=== PATIENT | male | born 1965 | race Caucasian/White ===

== ENCOUNTER 2018-05-30 19:24 | Emergency (ER) | payer OTHER ==
[2018-05-30] MEDS ORDERED: MORPHINE SULFATE 4 MG/ML SYRINGE IVP STA (20:09)
--- NOTE | 2018-05-30 20:09 | ED ---
Headache HPI - General Chief Complaint: Neuro Symptoms/Deficit Stated Complaint: Pressure on rt side of head Time Seen by Provider: 05/30/18 19:48 Source: RN notes reviewed, old records reviewed Mode of arrival: ambulatory Limitations: no limitations - History of Present Illness Initial Comments: This is a 53-year-old male the ER for evasive headache. Patient does have history of intracranial surgery. Patient states he felt like he had severe headache tonight just prior to arrival. Right eye right-sided headache. Patient does have history of occasional headaches. This headache is improving currently. Patient does have history of MRI of his brain secondary of prior history of urinary as well as surgery. He has no history of aneurysm. Patient denies any nausea vomiting, no trauma. No fevers MD Complaint: headache -: minutes(s) (30) Onset Description: sudden Location: right, retro-orbital Severity: moderate Severity scale (1-10): 6 Quality: aching Consistency: constant Improves With: nothing Worsens With: none Context: occurred at rest Associated Symptoms: other (None) Treatments Prior to Arrival: none - Related Data Home Medications Medication Instructions Recorded Confirmed Lisinopril [Prinivil] 10 mg PO DAILY 07/08/15 05/30/18 diphenhydrAMINE HCL [Benadryl] 25 mg PO Q6H PRN 05/30/18 05/30/18 Allergies Allergy/AdvReac Type Severity Reaction Status Date / Time No Known Allergies Allergy Verified 05/30/18 20:03 Review of Systems ROS Statement: Those systems with pertinent positive or pertinent negative responses have been documented in the HPI. ROS Other: All systems not noted in ROS Statement are negative. Past Medical History Past Medical History: GERD/Reflux, Hypertension Additional Past Medical History / Comment(s): acute pancreatitis History of Any Multi-Drug Resistant Organisms: None Reported Additional Past Surgical History / Comment(s): chiari decompression surgery Past Anesthesia/Blood Transfusion Reactions: No Reported Reaction Past Psychological History: No Psychological Hx Reported Smoking Status: Never smoker Past Alcohol Use History: None Reported Past Drug Use History: None Reported - Past Family History Mother Family Medical History: Cancer Additional Family Medical History / Comment(s): thyroid cancer Father Family Medical History: AFIB General Exam Limitations: no limitations General appearance: alert, in no apparent distress Head exam: Present: atraumatic, normocephalic, normal inspection Eye exam: Present: normal appearance, PERRL, EOMI. Absent: scleral icterus, conjunctival injection, periorbital swelling ENT exam: Present: normal exam, mucous membranes moist Neck exam: Present: normal inspection. Absent: tenderness, meningismus, lymphadenopathy Respiratory exam: Present: normal lung sounds bilaterally. Absent: respiratory distress, wheezes, rales, rhonchi, stridor Cardiovascular Exam: Present: regular rate, normal rhythm, normal heart sounds. Absent: systolic murmur, diastolic murmur, rubs, gallop, clicks GI/Abdominal exam: Present: soft, normal bowel sounds. Absent: distended, tenderness, guarding, rebound, rigid Extremities exam: Present: normal inspection, full ROM, normal capillary refill. Absent: tenderness, pedal edema, joint swelling, calf tenderness Back exam: Present: normal inspection Neurological exam: Present: alert, oriented X3, CN II-XII intact Psychiatric exam: Present: normal affect, normal mood Skin exam: Present: warm, dry, intact, normal color. Absent: rash Course Vital Signs 05/30/18 19:33 Temperature 98.0 F Pulse Rate 70 Respiratory 17 Rate Blood Pressure 141/84 O2 Sat by Pulse 98 Oximetry - Reevaluation(s) Reevaluation #1: 05/30/18 22:11 Patient's headache is improved, resolved Medical Decision Making - Medical Decision Making 53 male the ER for evaluation of sudden onset headache. Patient CT is negative. Patient can be discharged home - Radiology Data Radiology results: report reviewed (CT brain is negative for acute disease), image reviewed Disposition Clinical Impression: Chest pain Disposition: HOME SELF-CARE Condition: Good Instructions: Acute Headache (ED) Is patient prescribed a controlled substance at d/c from ED?: No Referrals: Gino Rojas MD [Primary Care Provider] - 1-2 days
--- NOTE | 2018-05-30 21:59 | CT ---
EXAMINATION TYPE: CT brain wo con DATE OF EXAM: 05/30/2018 COMPARISON: MRI brain 09/02/2013 INDICATION: head pressure DLP: 1097.4 mGycm, Automated exposure control for dose reduction was used. CONTRAST: None CT of the brain is performed utilizing 3 mm thick sections through the posterior fossa and 3 mm thick sections through the remaining calvarium. Study is performed within 24 hours of arrival to the hosp [facility]. No abnormal hyperdensity is present to suggest an acute intracranial hemorrhage. No mass lesion is evident. No acute infarcts are evident. Ventricles and sulci are appropriate for the patient age. Paranasal sinuses and mastoid air cells within the [id number] are clear. There is prior occipital surgery. Basilar invagination appears to be present. IMPRESSIONS: 1. No acute intracranial process.
--- NOTE | 2018-05-30 22:21 | ED ---
Disposition Clinical Impression: Headache Disposition: HOME SELF-CARE Condition: Good Instructions: Acute Headache (ED) Is patient prescribed a controlled substance at d/c from ED?: No Referrals: Gino Rojas MD [Primary Care Provider] - 1-2 days
[2018-05-30 22:28] VITALS: BP 114/87; PULSE 87; RESP 18; TEMP 98.4
== END 2018-05-30 22:27 | disposition home or self-care (01) ==
LOC: EC 19:24
DX: R51 Headache (principal); I10 Essential (primary) hypertension; Z79.899 Other long term (current) drug therapy; Z87.728 Personal history of other specified (corrected) congenital malformations of nervous system and sense organs; Z53.20 Procedure and treatment not carried out because of patient's decision for unspecified reasons
CPT/HCPCS: 70450; 99284

== ENCOUNTER 2018-11-16 09:13 | Emergency (ER) | payer OTHER ==
[2018-11-16 09:24] VITALS: BP 136/85; PULSE 77; RESP 18; TEMP 98.4
--- NOTE | 2018-11-16 09:29 | ED ---
General Adult HPI - General Chief complaint: Skin/Abscess/Foreign Body Stated complaint: poss poison lorelie Time Seen by Provider: 11/16/18 09:28 Source: patient, RN notes reviewed Mode of arrival: ambulatory Limitations: no limitations - History of Present Illness Initial comments: 53-year-old male with a past medical history of GERD, hypertension, pancreatitis presents to the emergency department for poison lorelei. Patient states that late last week he was [place] when he believes he came in contact with poison lorelei. States there is a area on his left bicep as well as the lower face. Patient states he came in today because the area on his face was weeping. States he has been applying calamine lotion which has been helping with the itching. Denies any fevers. Denies any purulent drainage from the site. Patient has no other complaints at this time including shortness of breath, chest pain, abdominal pain, nausea or vomiting, headache, or visual changes. - Related Data Home Medications Medication Instructions Recorded Confirmed Lisinopril [Prinivil] 10 mg PO DAILY 07/08/15 05/30/18 diphenhydrAMINE HCL [Benadryl] 25 mg PO Q6H PRN 05/30/18 05/30/18 Previous Rx's Medication Instructions Recorded Hydrocortisone 1% Lotion 1 applic TOPICAL BID 5 Days ml 11/16/18 Mupirocin [Mupirocin 2%] 1 applic TOPICAL TID 5 Days gm 11/16/18 Allergies Allergy/AdvReac Type Severity Reaction Status Date / Time No Known Allergies Allergy Verified 11/16/18 09:24 Review of Systems ROS Statement: Those systems with pertinent positive or pertinent negative responses have been documented in the HPI. ROS Other: All systems not noted in ROS Statement are negative. Past Medical History Past Medical History: GERD/Reflux, Hypertension Additional Past Medical History / Comment(s): acute pancreatitis History of Any Multi-Drug Resistant Organisms: None Reported Additional Past Surgical History / Comment(s): chiari decompression surgery Past Anesthesia/Blood Transfusion Reactions: No Reported Reaction Past Psychological History: No Psychological Hx Reported Smoking Status: Never smoker Past Alcohol Use History: None Reported Past Drug Use History: None Reported - Past Family History Mother Family Medical History: Cancer Additional Family Medical History / Comment(s): thyroid cancer Father Family Medical History: AFIB General Exam Limitations: no limitations General appearance: alert, in no apparent distress Head exam: Present: atraumatic, normocephalic, normal inspection Eye exam: Present: normal appearance, PERRL, EOMI. Absent: scleral icterus, conjunctival injection, periorbital swelling ENT exam: Present: normal exam, mucous membranes moist Neck exam: Present: normal inspection, full ROM. Absent: tenderness, meningismus, lymphadenopathy Respiratory exam: Present: normal lung sounds bilaterally. Absent: respiratory distress, wheezes, rales, rhonchi, stridor Cardiovascular Exam: Present: regular rate, normal rhythm, normal heart sounds. Absent: bradycardia, tachycardia, irregular rhythm Skin exam: Present: rash (Patient has a 2 cm x 2 cm area of erythema on the left lower chin with scaling and small ruptured vesicles. also 2 cm x 2 cm area noted on the left mid upper arm. No surrounding erythema. No abscess.) Course Vital Signs 11/16/18 09:22 Temperature 98.4 F Pulse Rate 77 Respiratory 18 Rate Blood Pressure 136/85 O2 Sat by Pulse 99 Oximetry Medical Decision Making - Medical Decision Making 53-year-old male presents to the emergency department for a chief complaint of possible poison lorelei. Patient was cleaning out the ditch late last week and then 2 days ago started to notice itching and rash noted to the left chin and left upper arm. States he has been applying calamine lotion which has been helping with symptoms. On exam patient does have rash consistent with poison lorelei. Rash is not severe. At this time patient can be treated with topical steroids. He will also be given mupirocin to prevent any superficial infection. This was followed up with primary care in 1-2 days. Discussed returning here if he has any worsening symptoms. Disposition Clinical Impression: Rash, Poison lorelei Disposition: HOME SELF-CARE Condition: Good Instructions (If sedation given, give patient instructions): Poison Lorelei (ED), Acute Rash (ED) Additional Instructions: Please apply antibiotic ointment and steroid. Please follow-up with primary care in 1-2 days. Return here if you've any worsening symptoms. Prescriptions: Hydrocortisone 1% Lotion 1 applic TOPICAL BID 5 Days ml Mupirocin [Mupirocin 2%] 1 applic TOPICAL TID 5 Days gm Is patient prescribed a controlled substance at d/c from ED?: No Referrals: Gino Rojas MD [Primary Care Provider] - 1-2 days Time of Disposition: 10:00
== END 2018-11-16 10:21 | disposition home or self-care (01) ==
LOC: EC 09:13
DX: L23.7 Allergic contact dermatitis due to plants, except food (principal); I10 Essential (primary) hypertension; Z79.899 Other long term (current) drug therapy
CPT/HCPCS: 99282

== ENCOUNTER 2021-10-17 07:50 | Emergency (ER) | payer OTHER ==
[2021-10-17 07:57] VITALS: TEMP 98.4
[2021-10-17 09:13] LABS: Basophils % (A) 0 %; Eosinophils # (A) 0.2 k/uL (0-0.7); Eosinophils % (A) 2 %; HCT 40.5 % (39.0-53.0); Lymphocytes # (A) 0.7 k/uL (1.0-4.8); Lymphocytes % (A) 9 %; MCH 27.5 pg (25.0-35.0); MCHC 32.2 g/dL (31.0-37.0); MCV 85.3 fL (80.0-100.0); Mean Platelet Volume 7.2; Monocytes # (A) 0.7 k/uL (0-1.0); Monocytes % (A) 8 %; Neutrophils # (A) 6.7 k/uL (1.3-7.7); Neutrophils % (A) 78 %; Platelet Count 494 k/uL (150-450); RBC 4.75 m/uL (4.30-5.90); RDW 12.9 % (11.5-15.5); WBC 8.5 k/uL (3.8-10.6)
[2021-10-17 09:33] LABS: ALT 22 U/L (4-49); AST 20 U/L (17-59); African American GFR (CKD) >90 (>60 ml/min/1.73 sqM); Albumin 4.1 g/dL (3.5-5.0); Alkaline Phosphatase 59 U/L (38-126); Anion Gap 12 mmol/L; Blood Urea Nitrogen 14 mg/dL (9-20); Calcium 9.1 mg/dL (8.4-10.2); Carbon Dioxide 26 mmol/L (22-30); Chloride 99 mmol/L (98-107); Creatine Kinase 37 U/L (55-170); Glucose 116 mg/dL (74-99); Non-African American GFR(CKD) >90 (>60 ml/min/1.73 sqM); Potassium 4.4 mmol/L (3.5-5.1); Sodium 137 mmol/L (137-145); Total Bilirubin 0.4 mg/dL (0.2-1.3); Total Protein 7.2 g/dL (6.3-8.2)
--- NOTE | 2021-10-17 10:16 | ED ---
Extremity Problem HPI - General Chief complaint: Extremity Problem,Nontraumatic Stated complaint: leg pain Time Seen by Provider: 10/17/21 08:08 Source: patient, RN notes reviewed, old records reviewed Mode of arrival: ambulatory Limitations: no limitations - History of Present Illness Initial comments: A 56-year-old male, history of GERD and hypertension, presenting to emergency Department with complaints of bilateral lower leg pain for the past 5 days. He denies any injuries or trauma. He states the pain has just been steadily increasing over the past few days and decided come in to be seen. He denies any history of blood clots, no recent travel. He denies any changes in medications. He denies any fevers or chills, no swelling, no redness or legs. He denies any history of surgeries of bilateral lower extremities. He states he drinks plenty of water, no increase in physical activity. He denies any recent chest pain or shortness of breath, no cough. He has no other symptoms or complaints today. His vital signs are stable upon arrival. - Related Data Home Medications Medication Instructions Recorded Confirmed Lisinopril [Prinivil] 10 mg PO DAILY 07/08/15 05/30/18 diphenhydrAMINE HCL [Benadryl] 25 mg PO Q6H PRN 05/30/18 05/30/18 Previous Rx's Medication Instructions Recorded Hydrocortisone 1% Lotion 1 applic TOPICAL BID 5 Days ml 11/16/18 Mupirocin [Mupirocin 2% with 1 applic TOPICAL TID 5 Days gm 11/16/18 applicator] Allergies Allergy/AdvReac Type Severity Reaction Status Date / Time No Known Allergies Allergy Verified 10/17/21 07:57 Review of Systems ROS Statement: Those systems with pertinent positive or pertinent negative responses have been documented in the HPI. ROS Other: All systems not noted in ROS Statement are negative. Past Medical History Past Medical History: GERD/Reflux, Hypertension Additional Past Medical History / Comment(s): acute pancreatitis History of Any Multi-Drug Resistant Organisms: None Reported Additional Past Surgical History / Comment(s): chiari decompression surgery Past Anesthesia/Blood Transfusion Reactions: No Reported Reaction Past Psychological History: No Psychological Hx Reported Smoking Status: Never smoker Past Alcohol Use History: None Reported Past Drug Use History: None Reported - Past Family History Mother Family Medical History: Cancer Additional Family Medical History / Comment(s): thyroid cancer Father Family Medical History: AFIB General Exam - General Exam Comments Initial Comments: GENERAL: Patient is well-developed and well-nourished. Patient is nontoxic and in no acute distress. HEAD: Atraumatic, normocephalic. EYES: Pupils equal round and reactive to light, extraocular movements intact, sclera anicteric, conjunctiva are normal. Eyelids were unremarkable. ENT: Oropharynx clear without exudates. Moist mucous membranes. NECK: Normal range of motion, supple without lymphadenopathy or JVD. LUNGS: Unlabored respirations. Breath sounds clear to auscultation bilaterally and equal. No wheezes rales or rhonchi. HEART: Regular rate and rhythm without murmurs, rubs or gallops. ABDOMEN: Soft, nontender, normoactive bowel sounds. No guarding, no rebound. No masses appreciated. MUSCULOSKELETAL: Patient has a normal range of motion, strength equal bilateral lower extremities. There is no swelling of bilateral lower extremities, no erythema. Neurovascular intact, sensation is equal and bilateral. He has some mild pain with palpation of bilateral lower legs. No clubbing or cyanosis. NEUROLOGICAL: Patient is alert and oriented x 3. Normal speech, normal gait. PSYCH: Normal mood, normal affect. SKIN: Warm, Dry, normal turgor, no rashes or lesions noted. Limitations: no limitations Course Vital Signs 10/17/21 07:55 Temperature 98.4 F Pulse Rate 96 Respiratory 20 Rate Blood Pressure 133/85 O2 Sat by Pulse 97 Oximetry Medical Decision Making - Medical Decision Making Patient is 56-year-old male here with bilateral lower leg pain over the past 5 days. His exam is completely unremarkable, no swelling, no redness, pulses are equal and bilateral as well as sensation. Did check basic laboratory studies including a CK, everything is normal. I discussed these findings with the patient. I recommended follow-up with his PCP and vascular for further investigation. Patient is agreeable to this. He can take anti-inflammatories for discomfort, elevation. Return parameters were discussed, he verbalized understanding. Case discussed with Dr. Liu. - Lab Data Result diagrams: 10/17/21 08:42 10/17/21 08:42 Lab Results 10/17/21 10/17/21 10/17/21 Range/Units 08:42 08:42 08:42 WBC 8.5 (3.8-10.6) k/uL RBC 4.75 (4.30-5.90) m/uL Hgb 13.0 (13.0-17.5) gm/dL Hct 40.5 (39.0-53.0) % MCV 85.3 (80.0-100.0) fL MCH 27.5 (25.0-35.0) pg MCHC 32.2 (31.0-37.0) g/dL RDW 12.9 (11.5-15.5) % Plt Count 494 H (150-450) k/uL MPV 7.2 Neutrophils % 78 % Lymphocytes % 9 % Monocytes % 8 % Eosinophils % 2 % Basophils % 0 % Neutrophils # 6.7 (1.3-7.7) k/uL Lymphocytes # 0.7 L (1.0-4.8) k/uL Monocytes # 0.7 (0-1.0) k/uL Eosinophils # 0.2 (0-0.7) k/uL Basophils # 0.0 (0-0.2) k/uL Sodium 137 (137-145) mmol/L Potassium 4.4 (3.5-5.1) mmol/L Chloride 99 (98-107) mmol/L Carbon Dioxide 26 (22-30) mmol/L Anion Gap 12 mmol/L BUN 14 (9-20) mg/dL Creatinine 0.79 (0.66-1.25) mg/dL Est GFR (CKD-EPI)AfAm >90 (>60 ml/min/1.73 sqM) Est GFR (CKD-EPI)NonAf >90 (>60 ml/min/1.73 sqM) Glucose 116 H (74-99) mg/dL Plasma Lactic Acid Eric 0.8 (0.7-2.0) mmol/L Calcium 9.1 (8.4-10.2) mg/dL Total Bilirubin 0.4 (0.2-1.3) mg/dL AST 20 (17-59) U/L ALT 22 (4-49) U/L Alkaline Phosphatase 59 (38-126) U/L Creatine Kinase 37 L (55-170) U/L Total Protein 7.2 (6.3-8.2) g/dL Albumin 4.1 (3.5-5.0) g/dL Disposition Clinical Impression: Bilateral lower extremity pain Disposition: HOME SELF-CARE Condition: Stable Instructions (If sedation given, give patient instructions): Leg Pain (ED) Additional Instructions: Please return to the Emergency Department if symptoms worsen or any other concerns. May take anti-inflammatories such as Motrin or Aleve for any discomfort. Trial of elevation above heart level throughout the day. Follow-up with your PCP and/or vascular as discussed. Is patient prescribed a controlled substance at d/c from ED?: No Referrals: Gino Rojas MD [Primary Care Provider] - 1-2 days Gonzalo Verma DO [Doctor of Osteopathic Medicine] - 1-2 days Time of Disposition: 10:16
[2021-10-17 10:43] VITALS: BP 126/87; PULSE 87; RESP 16
== END 2021-10-17 10:43 | disposition home or self-care (01) ==
LOC: EC 07:50
DX: M79.662 Pain in left lower leg (principal); M79.661 Pain in right lower leg; I10 Essential (primary) hypertension; K21.9 Gastro-esophageal reflux disease without esophagitis; Z79.899 Other long term (current) drug therapy
CPT/HCPCS: 36415; 80053; 82550; 83605; 85025; 99283

== ENCOUNTER → 2021-10-23 | Outpatient (CLI) | payer OTHER ==
--- NOTE | 2021-10-23 18:40 | US ---
EXAMINATION TYPE: US venous doppler duplex LE BI DATE OF EXAM: 10/23/2021 1:28 PM COMPARISON: NONE CLINICAL HISTORY: 56-year-old male I70.213 Atherosclerosis of [place] arteries of the lower extremiti es. Pain. SIDE PERFORMED: Bilateral TECHNIQUE: The lower extremity deep venous system is examined utilizing real time linear array sonog bright with graded compression, doppler sonography and color-flow sonography. FINDINGS: VESSELS IMAGED: Common Femoral Vein Deep Femoral Vein Greater Saphenous Vein * Femoral Vein Popliteal Vein Small Saphenous Vein * Proximal Calf Veins (* superficial vessels) Right Leg: Negative for DVT Left Leg: Negative for DVT IMPRESSION: No evidence for DVT within the bilateral lower lower extremities imaged from the groin to the upper c wells.
== END | disposition home or self-care (01) ==
LOC: RADUSWWP 12:16
PROVIDERS: ATTEND Family Medicine
DX: I70.213 Atherosclerosis of native arteries of extremities with intermittent claudication, bilateral legs (principal); R60.0 Localized edema
CPT/HCPCS: 93922; 93970

== ENCOUNTER 2021-11-02 03:05 | Inpatient (IN) | payer OTHER ==
[2021-11-02] MEDS ORDERED: MORPHINE SULFATE 4 MG/ML SYRINGE IV STA ×2 (03:58→06:35)
[2021-11-02 04:34] LABS: Basophils % (A) 0 %; Eosinophils # (A) 0.6 k/uL (0-0.7); Eosinophils % (A) 4 %; HGB 12.5 gm/dL (13.0-17.5); Lymphocytes % (A) 8 %; MCH 26.6 pg (25.0-35.0); MCV 83.1 fL (80.0-100.0); Monocytes # (A) 0.8 k/uL (0-1.0); Monocytes % (A) 6 %; Neutrophils # (A) 9.8 k/uL (1.3-7.7); Neutrophils % (A) 79 %; Platelet Count 698 k/uL (150-450); RDW 13.5 % (11.5-15.5); WBC 12.4 k/uL (3.8-10.6)
[2021-11-02 04:46] LABS: ALT 47 U/L (4-49); AST 24 U/L (17-59); African American GFR (CKD) >90 (>60 ml/min/1.73 sqM); Albumin 3.5 g/dL (3.5-5.0); Alcohol <10 mg/dL; Alkaline Phosphatase 59 U/L (38-126); Anion Gap 9 mmol/L; Blood Urea Nitrogen 12 mg/dL (9-20); Calcium 8.7 mg/dL (8.4-10.2); Carbon Dioxide 24 mmol/L (22-30); Chloride 97 mmol/L (98-107); Glucose 118 mg/dL (74-99); Non-African American GFR(CKD) >90 (>60 ml/min/1.73 sqM); Potassium 4.6 mmol/L (3.5-5.1); Sodium 130 mmol/L (137-145); Total Bilirubin 0.8 mg/dL (0.2-1.3); Total Protein 6.3 g/dL (6.3-8.2)
[2021-11-02] MEDS ORDERED: KETOROLAC 15 MG/ML 1 ML VIAL IVP STA (05:00)
[2021-11-02] MEDS ORDERED: SODIUM CHLORIDE 0.9% 500 ML 500 ML IV STA (05:46)
--- NOTE | 2021-11-02 05:50 | CT ---
EXAM: CT Lumbar Spine Without Intravenous Contrast CLINICAL HISTORY: ITS.REASON CT Reason: B leg pain TECHNIQUE: Axial computed tomography images of the lumbar spine without intravenous contrast. CTDI is 22.284 mGy and DLP is 913.6 mGy-cm. This CT exam was performed using one or more of the following dose reduction techniques: automated exposure control, adjustment of the mA and/or kV according to patient size, and/or use of iterative reconstruction technique. COMPARISON: No relevant prior studies available. FINDINGS: Vertebrae: Unremarkable. No acute fracture. Discs/spinal canal/neural foramina: No acute findings. No spinal canal stenosis. Soft tissues: Colonic diverticulosis. Prostatomegaly with mild circumferential bladder wall thickening which may be due to chronic outlet obstruction. IMPRESSION: Normal lumbar spine CT.
[2021-11-02] MEDS ORDERED: ACETAMINOPHEN TAB 325 MG TAB PO PRN (06:47)
[2021-11-02] MEDS ORDERED: NALOXONE 0.4 MG/ML 1 ML VIAL IV PRN (06:47)
[2021-11-02] MEDS ORDERED: MORPHINE SULFATE 4 MG/ML SYRINGE IV PRN (06:47)
--- NOTE | 2021-11-02 06:51 | ED ---
Back Pain HPI - General Chief Complaint: Back Pain/Injury Stated Complaint: Back Pain Time Seen by Provider: 11/02/21 03:34 Source: patient Limitations: no limitations - History of Present Illness Initial Comments: This patient is a 56-year-old man who presents to have evaluation of pain and weakness to the bilateral lower extremities. The patient notes that his symptoms had started probably around 2 weeks ago. The patient relates that he had driven to [place] and then after returning from the drive he began having symptoms. He was seen by his physician who arranged to have duplex Doppler studies to make sure there was no DVT. Patient continues to have pain. He states it is symmetric. In triage there was no made of back pain but patient denies back pain when I asked him. No fever or chills. No change in urination or bowel movements. No saddle anesthesia. MD Complaint: other -: days(s) Similar Symptoms Previously: No Place: home Radiation: left leg, right leg Severity: severe Quality: burning, aching Consistency: constant Improves With: none Worsens With: none Associated Symptoms: weakness - Related Data Home Medications Medication Instructions Recorded Confirmed lisinopriL [Prinivil] 10 mg PO DAILY 07/08/15 05/30/18 diphenhydrAMINE HCL [Benadryl] 25 mg PO Q6H PRN 05/30/18 05/30/18 Previous Rx's Medication Instructions Recorded Hydrocortisone 1% Lotion 1 applic TOPICAL BID 5 Days ml 11/16/18 Mupirocin [Mupirocin 2% with 1 applic TOPICAL TID 5 Days gm 11/16/18 applicator] Allergies Allergy/AdvReac Type Severity Reaction Status Date / Time No Known Allergies Allergy Verified 11/02/21 03:09 Review of Systems ROS Statement: Those systems with pertinent positive or pertinent negative responses have been documented in the HPI. ROS Other: All systems not noted in ROS Statement are negative. Constitutional: Denies: fever, chills Respiratory: Denies: cough, dyspnea Cardiovascular: Denies: chest pain, palpitations Gastrointestinal: Denies: abdominal pain, vomiting, diarrhea, constipation Genitourinary: Denies: dysuria, hematuria, testicular pain Musculoskeletal: Denies: back pain Skin: Denies: rash Neurological: Reports: weakness, numbness. Denies: headache, paresthesias, confusion Past Medical History Past Medical History: GERD/Reflux, Hypertension Additional Past Medical History / Comment(s): acute pancreatitis History of Any Multi-Drug Resistant Organisms: None Reported Additional Past Surgical History / Comment(s): chiari decompression surgery Past Anesthesia/Blood Transfusion Reactions: No Reported Reaction Past Psychological History: No Psychological Hx Reported Smoking Status: Never smoker Past Alcohol Use History: None Reported Past Drug Use History: None Reported - Past Family History Mother Family Medical History: Cancer Additional Family Medical History / Comment(s): thyroid cancer Father Family Medical History: AFIB General Exam Limitations: no limitations General appearance: alert, in no apparent distress Head exam: Present: atraumatic, normocephalic Eye exam: Present: normal appearance Neck exam: Present: normal inspection, full ROM Respiratory exam: Present: normal lung sounds bilaterally. Absent: respiratory distress, wheezes, rales, rhonchi, stridor Cardiovascular Exam: Present: regular rate, normal rhythm, normal heart sounds. Absent: systolic murmur, diastolic murmur, rubs, gallop GI/Abdominal exam: Present: soft. Absent: distended, tenderness, guarding, rebound, rigid, mass Extremities exam: Present: normal inspection, full ROM, normal capillary refill. Absent: tenderness, pedal edema, calf tenderness Back exam: Present: normal inspection. Absent: CVA tenderness (R), CVA tenderness (L), paraspinal tenderness, vertebral tenderness Neurological exam: Present: alert, motor sensory deficit, reflexes normal Expanded Patient oriented to: Present: person, place, time Speech: Present: fluid speech Motor strength exam: RUE: 5, LUE: 5, RLE: 4, LLE: 4 Eye Response: (4) open spontaneously Motor Response: (6) obeys commands Verbal Response: (5) oriented Skin exam: Present: warm, dry, intact, normal color. Absent: rash Course Vital Signs 11/02/21 11/02/21 03:05 06:42 Temperature 99 F Pulse Rate 100 95 Respiratory 20 16 Rate Blood Pressure 125/78 138/85 O2 Sat by Pulse 98 97 Oximetry Medical Decision Making - Medical Decision Making This patient is 56-year-old man with proximal 2 weeks of bilateral leg pain. On my exam there is also weakness. Case is discussed with sound physician who will admit to have neurology consultation. - Lab Data Result diagrams: 11/02/21 04:20 11/02/21 04:20 Lab Results 11/02/21 11/02/21 Range/Units 04:20 04:20 WBC 12.4 H (3.8-10.6) k/uL RBC 4.70 (4.30-5.90) m/uL Hgb 12.5 L (13.0-17.5) gm/dL Hct 39.0 (39.0-53.0) % MCV 83.1 (80.0-100.0) fL MCH 26.6 (25.0-35.0) pg MCHC 32.0 (31.0-37.0) g/dL RDW 13.5 (11.5-15.5) % Plt Count 698 H (150-450) k/uL MPV 7.0 Neutrophils % 79 % Lymphocytes % 8 % Monocytes % 6 % Eosinophils % 4 % Basophils % 0 % Neutrophils # 9.8 H (1.3-7.7) k/uL Lymphocytes # 1.0 (1.0-4.8) k/uL Monocytes # 0.8 (0-1.0) k/uL Eosinophils # 0.6 (0-0.7) k/uL Basophils # 0.0 (0-0.2) k/uL Sodium 130 L (137-145) mmol/L Potassium 4.6 (3.5-5.1) mmol/L Chloride 97 L (98-107) mmol/L Carbon Dioxide 24 (22-30) mmol/L Anion Gap 9 mmol/L BUN 12 (9-20) mg/dL Creatinine 0.69 (0.66-1.25) mg/dL Est GFR (CKD-EPI)AfAm >90 (>60 ml/min/1.73 sqM) Est GFR (CKD-EPI)NonAf >90 (>60 ml/min/1.73 sqM) Glucose 118 H (74-99) mg/dL Calcium 8.7 (8.4-10.2) mg/dL Total Bilirubin 0.8 (0.2-1.3) mg/dL AST 24 (17-59) U/L ALT 47 (4-49) U/L Alkaline Phosphatase 59 (38-126) U/L C-Reactive Protein 13.0 H (<1.0) mg/dL Total Protein 6.3 (6.3-8.2) g/dL Albumin 3.5 (3.5-5.0) g/dL Serum Alcohol <10 mg/dL Disposition Clinical Impression: Bilateral lower extremity pain Disposition: ADMITTED IP TO THIS HOSP Condition: Fair Is patient prescribed a controlled substance at d/c from ED?: No Referrals: Gino Rojas MD [Primary Care Provider] - 1-2 days Time of Disposition: 06:35
[2021-11-02] MEDS: HEPARIN SODIUM,PORCINE/PF 5,000 UNIT/0.5 ML SYRINGE SQ SCH ×2 (07:56→16:02)
[2021-11-02] MEDS: SODIUM CHLORIDE 0.9% 1,000 ML IV SCH ×2 (07:58→20:25)
[2021-11-02] MEDS: lisinopriL 10 MG TAB PO SCH (09:53)
--- NOTE | 2021-11-02 10:45 | P.HPIM ---
History of Present Illness H&P Date: 11/02/21 History of Presenting Illness: Patient is a very pleasant 56-year-old male with a past medical history of hypertension, GERD, and Chiari decompression surgery. Patient presented to the emergency department with the chief complaint of bilateral leg pain and weakness. Patient reports this is pending progressively going on over the past month and has significantly worsened over the past 2 weeks. Patient reports he is now experiencing complete numbness of bilateral feet accompanied by pain and tingling traveling up his legs. Patient denies any previous episodes similar to this in the past. He denies having any recent fevers or recent infections. He denies having any falls or injuries. Patient also denies having any back pain, chest pain, palpitations, shortness of breath, or experiencing any other numbness/tingling/weakness throughout any other part of his body. Patient reports this numbness/pain/tingling extends up into his thighs. He denies having any involuntary loss of bowel or bladder. Patient underwent full evaluation in the emergency department, CT lumbar spine negative for acute process. Labs completed. CBC revealing leukocytosis with WBC count of 12.4 and thrombocytosis with platelet count of 698. BMP revealing mild hyponatremia with sodium of 1:30 and hypochloremia with chloride of 97. Inflammatory markers elevated with CRP 13 an ESR of 63. Patient admitted under our services with consultation to neurology. Review of systems: Pertinent positives and negatives as discussed in HPI, a complete review of systems was performed and all other systems are negative. Physical exam: Vital signs reviewed and stable. General: Nontoxic, no distress and appears stated age. Derm: Skin warm and dry, normal coloration for ethnicity. Head: Atraumatic, normocephalic and symmetric. Eyes: EOMs intact, no lid lag, and anicteric sclera Mouth: no lip lesions, mucus membranes moist Cardiovascular: regular rate and rhythm with normal S1S2, no murmur, positive posterior tibial pulses bilaterally, and cap refill < 2 seconds. Lungs: Respirations even, regular, and unlabored on room air. Lungs CTA bilaterally, no rhonchi, no rales, no wheezing, and no accessory muscle usage. Abdominal: soft, nontender to palpation, no guarding, no appreciable organomegaly Ext: ROM intact. No gross muscle atrophy, no edema, no contractures. Patient do es have moderate varicose veins in bilateral lower extremities but does have strong palpable posterior tibial and pedal pulses bilaterally. Patient reports numbness in bilateral feet, cap refill less than 2 seconds and temperature skin is warm. Neuro: Speech clear, face symmetrical and CN II-XII grossly intact with no noted focal neuro deficits Psych: Alert and oriented to person, place, time, and situation. Appropriate and pleasant affect. Assessment and Plan of Care: Bilateral lower extremity numbness and pain, rule out Belmond Aquino or other neurological disorder -Neurology consulted -Neuro checks every 4 hours -Fall precautions -Safe and supportive care and assistance as needed -Pain management -MRI brain and cervical spine -Inflammatory markers elevated with an ESR of 63 and CRP of 13. Hyponatremia Hypochloremia -Likely secondary to dehydration, patient receiving gentle IV fluid hydration. -We will continue to monitor with repeat a.m. labs. Thrombocytosis -Likely secondary to dehydration, patient receiving gentle IV fluid hydration. -We will continue to monitor with repeat a.m. labs. Leukocytosis -Possibly reactive as inflammatory markers are also elevated. -We will continue to monitor with repeat a.m. labs. Hypertension - monitor vital signs and continue daily medication regimen with lisinopril CODE STATUS: Full code DVT prophylaxis: heparin Discussed with: patient and RN Anticipated discharge date: clinical course to determine Anticipated discharge place: home A total of 45 minutes was spent on the care of this complex patient more than 50% of the time was spent in counseling and care coordination. Past Medical History Past Medical History: GERD/Reflux, Hypertension Additional Past Medical History / Comment(s): acute pancreatitis History of Any Multi-Drug Resistant Organisms: None Reported Additional Past Surgical History / Comment(s): chiari decompression surgery Past Anesthesia/Blood Transfusion Reactions: No Reported Reaction Past Psychological History: No Psychological Hx Reported Smoking Status: Never smoker Past Alcohol Use History: None Reported Past Drug Use History: None Reported - Past Family History Mother Family Medical History: Cancer Additional Family Medical History / Comment(s): thyroid cancer Father Family Medical History: AFIB Medications and Allergies Home Medications Medication Instructions Recorded Confirmed Type lisinopriL [Prinivil] 10 mg PO DAILY 07/08/15 11/02/21 History Cholecalciferol (Vitamin D3) 75 mcg PO HS 11/02/21 11/02/21 History [Vitamin D3 (3000 Iu)] Allergies Allergy/AdvReac Type Severity Reaction Status Date / Time No Known Allergies Allergy Verified 11/02/21 07:27 Physical Exam Vitals: Vital Signs Temp Pulse Resp BP Pulse Ox 11/02/21 08:07 98.8 F 93 18 139/88 96 11/02/21 06:42 95 16 138/85 97 11/02/21 03:05 99 F 100 20 125/78 98 Intake and Output 11/01/21 11/02/21 11/02/21 22:59 06:59 14:59 Other: Weight 68.039 kg Results CBC & Chem 7: 11/02/21 04:20 11/02/21 04:20 Labs: Abnormal Lab Results - Last 24 Hours (Table) 11/02/21 11/02/21 Range/Units 04:20 04:20 WBC 12.4 H (3.8-10.6) k/uL Hgb 12.5 L (13.0-17.5) gm/dL Plt Count 698 H (150-450) k/uL Neutrophils # 9.8 H (1.3-7.7) k/uL Sodium 130 L (137-145) mmol/L Chloride 97 L (98-107) mmol/L Glucose 118 H (74-99) mg/dL C-Reactive Protein 13.0 H (<1.0) mg/dL
[2021-11-02] MEDS: KETOROLAC 15 MG/ML 1 ML VIAL IVP PRN ×2 (11:59→18:27)
--- NOTE | 2021-11-02 13:55 | P.CNNES ---
History of Present Illness Consult date: 11/02/21 Requesting physician: Maurice Argueta Reason for Consult: Bilateral leg pain and weakness History of Present Illness: Patient is a 56-year-old male came to the hospital early this morning at 3:05 AM for new onset bilateral lower extremity paresthesias and weakness. Patient states that he was suffering from upper respiratory infection since August 2021. She was given a course of antibiotics on 08/25/2021. The sinus congestion continued to linger on. He was given a dose of Medrol Dosepak on 09/22/2021. Patient states that around 10/11/2021 he developed paresthesias in the bilateral lower extremities, was hurting to touch involving whole legs bilaterally. (He states that he remembers attending a wedding on 10/09/2021 when he had no symptoms in the legs). Denied any symptoms in the upper extremities. ER on 0 10/17/2021 and underwent blood testing including CK which was normal. Patient was recommended to follow-up with a primary physician. Patient saw his primary physician, who recommended arterial Doppler of bilateral lower extremities, which was performed on 10/23/2021, which revealed loss of phasicity right femoral artery may be technical. Normal LEELEE values. Patient states that hypersensitivity in the legs have improved, but now he has developed constant numbness of the feet and ankle region bilaterally. When the pain gets worse, it extends up to the thighs pointing posteriorly otherwise it stays in the lower legs. In the last 1-1/2 weeks, he has noticed difficulty moving his toes. Yesterday he had too much pain therefore decided to come to the ER. He notices stabbing pain in the feet. Patient denies any symptoms in the upper extremities or hands. Early this morning he was feeling some sprained feeling in the shoulder but is gone now. Patient denies any bowel or bladder control issue. Denies any numbness of the trunk, perineal region. He states the balance is fine. He states it's hard to walk because of pain but no balance issues. Vital signs on arrival blood pressure 125/78, pulse rate 100, temperature 99.0.. Blood test shows WBC 12.4 hemoglobin 12.5 and platelet 698. Sodium 1:30 potassium 4.6, renal functions normal, hepatic panel normal, blood alcohol level less than 10. CT of the lumbar spine is normal. Patient had a CT head performed previously on 05/30/2018 for "head pressure" was normal. Patient currently takes lisinopril and vitamin D3. Patient denies any blood pressure diabetes. Denies any tobacco or alcohol use. He is retired from [employer]. Patient states that in fabric 2021 he developed shingles involving the shoulder blade. It was not very intense. Review of Systems All 14 points a few systems reviewed, unremarkable except as mentioned in HPI. Past Medical History Past Medical History: GERD/Reflux, Hypertension Additional Past Medical History / Comment(s): acute pancreatitis History of Any Multi-Drug Resistant Organisms: None Reported Additional Past Surgical History / Comment(s): chiari decompression surgery Past Anesthesia/Blood Transfusion Reactions: No Reported Reaction Past Psychological History: No Psychological Hx Reported Smoking Status: Never smoker Past Alcohol Use History: None Reported Past Drug Use History: None Reported - Past Family History Mother Family Medical History: Cancer Additional Family Medical History / Comment(s): thyroid cancer Father Family Medical History: AFIB Medications and Allergies Home Medications Medication Instructions Recorded Confirmed Type lisinopriL [Prinivil] 10 mg PO DAILY 07/08/15 11/02/21 History Cholecalciferol (Vitamin D3) 75 mcg PO HS 11/02/21 11/02/21 History [Vitamin D3 (3000 Iu)] Allergies Allergy/AdvReac Type Severity Reaction Status Date / Time No Known Allergies Allergy Verified 11/02/21 07:27 Physical Examination - Vital Signs Vital Signs: Vital Signs Temp Pulse Pulse Resp BP BP Pulse Ox 11/02/21 09:10 98.2 F 98 18 128/83 98 11/02/21 08:07 98.8 F 93 18 139/88 96 11/02/21 06:42 95 16 138/85 97 11/02/21 03:05 99 F 100 20 125/78 98 Intake and Output 11/01/21 11/02/21 11/02/21 22:59 06:59 14:59 Other: Weight 68.039 kg 68.039 kg Patient is a middle aged male, in no acute distress. Patient is alert awake oriented to time place and person. Speech and language functions are normal. Attention, concentration and fund of knowledge is adequate. On cranial examination, pupils are round and reacting to light, visual perez are full on confrontation, with no neglect. His extraocular muscles are intact with no nystagmus. Face is symmetric, tongue protrudes to the midline. Palatal elevation and sensation normal, hearing and shoulder shrug normal, facial sensation normal. Shoulder shrug normal. On muscle strength testing, there is no pronator drift and the strength is normal in arms and legs distally and proximally, except toe extension which is 4 on the right, 3-on the left. Toe flexion is normal bilaterally. Deep tendon reflexes are (right/left) biceps 2+/2+, brachioradialis 2+/2+, knees 3/2+, ankles 2+/1+ and plantars are flat bilaterally. Sensory to light touch is decreased from toes up to 4 fingerbreadth above the ankles. Pinprick is decreased from toes up to ankles bilaterally. Vibration is absent in the toes, mildly decreased at the ankles. Joint position sense is severely decreased at the toe. Cerebellar function showed no ataxia for [id number] testing. No dysdiadochokinesia. Tone and bulk of muscles normal. Gait deferred. On general examination, there is no carotid bruit or murmur, S1-S2 audible. Abdomen is soft nontender. No organomegaly, bowel sounds present. Chest is clear. Peripheral pulses are present. No edema. Results - Laboratory Findings CBC and BMP: 11/03/21 05:50 11/02/21 04:20 Abnormal Lab Findings: Abnormal Labs 11/02/21 11/02/21 04:20 04:20 WBC 12.4 H Hgb 12.5 L Plt Count 698 H Neutrophils # 9.8 H Sodium 130 L Chloride 97 L Glucose 118 H C-Reactive Protein 13.0 H Assessment and Plan Assessment: * New onset, 4 week history of progressive numbness and weakness of distal bilateral lower extremities. Examination reveals preserved deep tendon reflexes. Patient had upper respiratory infection prior to onset of these symptoms. 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 Rule out myelopathy. * History of cervical decompression surgery for Chiari malformation in 2013. Denies any injury or neck pain at this time. * History of herpes zoster (affecting right shoulder region) around May 2021 Plan: * MRI of the cervical, thoracic and lumbar spines with and without contrast, rule out myelopathy. * Detailed blood tests has been ordered. * Lumbar puncture to evaluate for CSF protein. We will consult pain management. If the CSF proteins are high, and no obvious abnormalities identified with above testing, then we will consider treatment with IVIG. * Neurology will follow. Thank you for the consult.
--- NOTE | 2021-11-02 15:11 | MR ---
EXAMINATION TYPE: MR cspine/tspine wo/w con DATE OF EXAM: 11/02/2021 COMPARISON: MR brain 09/02/2013 HISTORY: Bilateral LE weakness, numbness ?TM spinal stenosis, Hx of Chiari decompression TECHNIQUE: Multiplanar, multisequence images of the cervical and thoracic spine is performed without and with IV contrast, utilizing 7 mL intravenous Gadavist FINDINGS: Cervical spine MRI with and without contrast: Cervical vertebral bodies show preserved height and ali gnment, bone marrow signal is maintained. Disc spaces are normal. There is no evident spinal stenosis or disc herniation. Posterior extension of endplate disc complex at C6-7 causes minimal anterior mas s effect on the thecal sac. No significant foraminal encroachment. Postop changes are noted at the oc cipital calvarium. Inferior descent of the cerebellar tonsils is present posterior to the upper cervi portia cord, cervical cord signal is maintained. There is a thoracic spinal curvature. Unusual orientati on of the midbrain shows a similar appearance, chronic finding. There is no abnormal enhancement following contrast administration. IMPRESSION: No acute finding is evident. There are postop changes, unusual appearance of the patient' s midbrain with inferior descent of the cerebellar tonsils again noted. No significant spinal stenosi s. Thoracic spine MRI with and without contrast: There is a spinal curvature present. No significant spinal stenosis or foraminal encroachment. Thorac ic vertebral bodies show preserved height. Thoracic cord signal is maintained. No abnormal enhancemen t following contrast administration. Disc spaces are maintained. There is no evident disc herniation. IMPRESSION: There is marked spinal curvature in the upper thoracic spine convex left.
[2021-11-02] MEDS: HYDROcodone/APAP 5-325MG 1 EACH TAB PO PRN (17:38)
[2021-11-02 18:27] LABS: Immunoglobulin M 44.2 mg/dL (40.0-280.0)
[2021-11-02 18:37] LABS: Protein, Total 5.8 g/dL (6.2-8.2)
[2021-11-02] MEDS: CHOLECALCIFEROL 25 MCG (1000 IU) TABLET PO SCH (20:24)
[2021-11-02] MEDS: HYDROmorphone 1 MG/ML 1 ML SYRINGE IVP PRN (21:36)
[2021-11-03] MEDS: KETOROLAC 15 MG/ML 1 ML VIAL IVP PRN ×3 (00:21→13:30)
[2021-11-03] MEDS: lisinopriL 10 MG TAB PO SCH (08:02)
[2021-11-03 09:00] LABS: HCT 37.2 % (39.6-50.0); HGB 11.6 g/dL (13.0-17.0); MCH 26.2 pg (27.0-32.0); MCHC 31.2 g/dL (32.0-37.0); MCV 84.2 fL (80.0-97.0); Mean Platelet Volume 9.1 fL (9.5-12.2); NRBC Per 100 WBC 0 /100 WBCS (0.0-0.0); Platelet Count 596 X 10*3/uL (140-440); RBC 4.42 X 10*6/uL (4.40-5.60); RDW 13.8 % (11.5-14.5); WBC 13.04 X 10*3/uL (4.50-10.00)
[2021-11-03 09:15] LABS: African American GFR (CKD) 124.5 (60.0-200.0); Albumin 3.4 g/dL (3.8-4.9); Albumin/Globulin Ratio 1.23 (1.60-3.17); Anion Gap 11.6 mmol/L (10.00-18.00); BUN/Creat Ratio 22.17 Ratio (12.00-20.00); Blood Urea Nitrogen 15.1 mg/dL (9.0-27.0); Calcium 8.6 mg/dL (8.7-10.3); Carbon Dioxide 24.1 mmol/L (20.0-27.5); Globulin 2.8 g/dL (1.6-3.3); Magnesium 2.1 mg/dL (1.5-2.4); Non-African American GFR(CKD) 107.5 (60.0-200.0); Potassium 4.7 mmol/L (3.5-5.5); Total Bilirubin 0.3 mg/dL (0.30-1.20); Total Protein 6.2 g/dL (6.2-8.2)
[2021-11-03 10:36] LABS: Lyme IgG/IgM 0.04 Index
[2021-11-03] MEDS ORDERED: IV FLUID CONTINUATION 1,000 ML IV ONE (10:44)
[2021-11-03] MEDS: SODIUM CHLORIDE 0.9% 1,000 ML IV SCH (10:52)
--- NOTE | 2021-11-03 11:36 | P.PCN ---
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 Condition: stable Complication: none. Description of the procedure procedure risk and benefits discussed with the patient , consent signed. Patient and the procedure area placed in sitting, back prepped with chlorhexidine 3 times been local infiltration of the skin and subcutaneous tissue with lidocaine 1% 2 mL for skin and subcu interstitial frustrations at L4 5 levels then 22-gauge Quincke-type needle advanced slowly at L4- 5 interlaminar space there was positive cerebrospinal fluid which was clear, no heme, no paresthesia ,total of 8ML of clear cerebrospinal fluid collected in 4 different tubes 2mL in each, then the needle removed and a Band-Aid applied and patient tolerated the procedure well without any complications.
[2021-11-03] MEDS: GABAPENTIN 300 MG CAP PO SCH ×2 (13:29→19:13)
[2021-11-03] MEDS ORDERED: LORazepam 2 MG/ML INJ IV PRN (13:32)
[2021-11-03] MEDS: FOLIC ACID 1 MG TAB PO SCH (13:47)
[2021-11-03 13:57] LABS: Albumin 2.58 g/dL (3.80-4.90); Gamma Globulin 0.71 g/dL (0.70-1.50)
--- NOTE | 2021-11-03 15:12 | MR ---
EXAMINATION TYPE: MR lumbar spine wo/w con DATE OF EXAM: 11/03/2021 COMPARISON: CT lumbar spine dated 11/02/2021 HISTORY: Bilateral LE weakness, numbness ?TM spinal stenosis. TECHNIQUE: Multiplanar, multisequence images of the lumbar spine were acquired without and with 7 mL intravenous Gadavist gadolinium contrast. L1-L2: Normal disc appearance without desiccation. No herniation, protrusion or disc bulging. No ca nal stenosis is present. Foramina are patent bilaterally. L2-L3: Normal disc appearance without desiccation. No herniation, protrusion or disc bulging. No ca nal stenosis is present. Foramina are patent bilaterally. L3-L4: Normal disc appearance without desiccation. No herniation, protrusion or disc bulging. No ca nal stenosis is present. Foramina are patent bilaterally. L4-L5: No herniation, protrusion or disc bulging. No canal stenosis is present. Foramina are martinez nt bilaterally. L5-S1: . No herniation, protrusion or disc bulging. No canal stenosis is present. Foramina are pat ent bilaterally. Lumbar segments are intact. No paraspinal masses are identified. Conus medullaris has a normal appe arance. There is a spinal curvature. Lumbar vertebral bodies show preserved height. Probable hemangio ma present at superior endplate of L3. L5-S1 shows endplate discogenic marrow signal change, there is some associated spondylosis. No significant spinal stenosis. Loss of disc height signal present L4-5 , L5-S1. Suspect marrow reconversion, consider anemia. No abnormal enhancement following contrast administration. IMPRESSION: Mild degenerative disc changes. There is a scoliotic curvature, findings consistent with marrow recon version
--- NOTE | 2021-11-03 15:31 | P.PN ---
Subjective Progress Note Date: 11/03/21 Hospital course: Patient is a very pleasant 56-year-old male with a past medical history of hypertension, GERD, and Chiari decompression surgery. Patient presented to the emergency department with the chief complaint of bilateral leg pain and weakness. Patient reports this is pending progressively going on over the past month and has significantly worsened over the past 2 weeks. Patient reports he is now experiencing complete numbness of bilateral feet accompanied by pain and tingling traveling up his legs. Patient denies any previous episodes similar to this in the past. He denies having any recent fevers or recent infections. He denies having any falls or injuries. Patient also denies having any back pain, chest pain, palpitations, shortness of breath, or experiencing any other numbness/tingling/weakness throughout any other part of his body. Patient reports this numbness/pain/tingling extends up into his thighs. He denies having any involuntary loss of bowel or bladder. Patient underwent full evaluation in the emergency department, CT lumbar spine negative for acute process. Labs completed. CBC revealing leukocytosis with WBC count of 12.4 and thrombocytosis with platelet count of 698. BMP revealing mild hyponatremia with sodium of 1:30 and hypochloremia with chloride of 97. Inflammatory markers elevated with CRP 13 an ESR of 63. Patient admitted under our services with consultation to neurology. Physical exam: Patient seen and fully evaluated at bedside upon return from lumbar puncture. Patient reports continued pain and numbness in his feet radiating upwards into his thighs. Plan is for patient to undergo MRI of lumbar spine with and without contrast later today. 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 Repeat labs revealing leukocytosis with WBC count of 13.4, anemia with hemoglobin stable at 11.6, thrombocytosis with platelet count of 596. Lyme IgG/IgM negative. JAMIE negative. B12 634. Folate slightly low at 3.90 and patient was started on daily folate supplement. Patient continues to deny having any other complaints at this time including headache, lightheadedness, dizziness, neck pain, back pain, chest pain, or shortness of breath.. Vital signs reviewed and stable. General: Nontoxic, no distress and appears stated age. Derm: Skin warm and dry, normal coloration for ethnicity. Head: Atraumatic, normocephalic and symmetric. Eyes: EOMs intact, no lid lag, and anicteric sclera Mouth: no lip lesions, mucus membranes moist Cardiovascular: regular rate and rhythm with normal S1S2, no murmur, positive posterior tibial pulses bilaterally, and cap refill < 2 seconds. Lungs: Respirations even, regular, and unlabored on room air. Lungs CTA bilaterally, no rhonchi, no rales, no wheezing, and no accessory muscle usage. Abdominal: soft, nontender to palpation, no guarding, no appreciable organom egaly Ext: ROM intact. No gross muscle atrophy, no edema, no contractures. Patient does have moderate varicose veins in bilateral lower extremities but does have strong palpable posterior tibial and pedal pulses bilaterally. Patient reports numbness in bilateral feet, cap refill less than 2 seconds and temperature skin is warm. Neuro: Speech clear, face symmetrical and CN II-XII grossly intact with no noted focal neuro deficits Psych: Alert and oriented to person, place, time, and situation. Appropriate and pleasant affect. Assessment and Plan of Care: Bilateral lower extremity numbness and pain, rule out [place] Aquino or other neurological disorder -Neurology following, appreciate further recommendations -Neuro checks every 4 hours -Fall precautions -Safe and supportive care and assistance as needed -Pain management -MRI cervical and thoracic spine revealed marked spinal curvature and upper thoracic spine and postoperative changes from Chiari decompression surgery, and unusual appearance of mid brain with 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 -Patient scheduled to undergo MRI lumbar spine with and without contrast later today -Lumbar puncture completed, pending results. -Inflammatory markers elevated with an ESR of 63 and CRP of 13, we will repeat with a.m. labs Hyponatremia, improved Hypochloremia, resolved -Likely secondary to dehydration, patient receiving gentle IV fluid hydration. -We will continue to monitor with repeat a.m. labs. Thrombocytosis, improved with IV fluid hydration -Likely secondary to dehydration, patient receiving gentle IV fluid hydration. -We will continue to monitor with repeat a.m. labs. Leukocytosis -Possibly reactive as inflammatory markers are also elevated. -We will continue to monitor with repeat a.m. labs. Hypertension - monitor vital signs and continue daily medication regimen with lisinopril CODE STATUS: Full code DVT prophylaxis: Heparin Discussed with: Patient and RN Anticipated discharge date: clinical course to determine Anticipated discharge place: home A total of 35 minutes was spent on the care of this complex patient more than 50% of the time was spent in counseling and care coordination. Objective - Vital Signs Vital signs: Vital Signs Temp 98 F 11/03/21 07:00 Pulse 107 H 11/03/21 07:00 Resp 18 11/03/21 08:21 BP 131/81 11/03/21 07:00 Pulse Ox 96 11/03/21 07:00 FiO2 Intake & Output 11/02/21 11/03/21 11/03/21 18:59 06:59 18:59 Output Total 0 Balance 0 Weight 68.039 kg Output: Emesis 0 Other: Voiding Method Toilet # Voids 1 - Labs CBC & Chem 7: 11/03/21 05:50 11/03/21 05:50 Labs: Abnormal Lab Results - Last 24 Hours (Table) 11/02/21 11/02/21 11/02/21 Range/Units 12:19 12:19 12:19 ESR 63 H (0-15) mm/hr Hemoglobin A1c 6.2 H (0.0-6.0) % Total Protein (PEP) (6.2-8.2) g/dL Folate 3.90 L (4.40-31.00) ng/mL 11/02/21 Range/Units 12:19 ESR (0-15) mm/hr Hemoglobin A1c (0.0-6.0) % Total Protein (PEP) 5.8 L (6.2-8.2) g/dL Folate (4.40-31.00) ng/mL
[2021-11-03 16:13] LABS: Glucose,CSF 73 mg/dL (40-70); Total Protein,CSF 47 mg/dL (12-60)
[2021-11-03 16:20] LABS: Appearance,CSF Clear; CSF Tube Number 4; CSF Tube Volume 2; Nucleated Cells, CSF 1 u/L (0-5); Red Blood Cell,CSF 2 u/L (0-10)
[2021-11-03] MEDS ORDERED: IMMUNE GLOBULIN (GAMMAGARD) 30 GM in EMPTY BAG 1 BAG IV ONE (18:00)
[2021-11-03] MEDS: CHOLECALCIFEROL 25 MCG (1000 IU) TABLET PO SCH (19:13)
[2021-11-03] MEDS: HEPARIN SODIUM,PORCINE/PF 5,000 UNIT/0.5 ML SYRINGE SQ SCH (22:11)
[2021-11-03] MEDS: HYDROcodone/APAP 5-325MG 1 EACH TAB PO PRN (22:40)
[2021-11-04] MEDS: HYDROmorphone 1 MG/ML 1 ML SYRINGE IVP PRN ×2 (00:20→04:25)
[2021-11-04] MEDS: SODIUM CHLORIDE 0.9% 1,000 ML IV SCH ×2 (01:26→16:25)
[2021-11-04] MEDS: lisinopriL 10 MG TAB PO SCH (08:38)
[2021-11-04] MEDS: FOLIC ACID 1 MG TAB PO SCH (08:38)
[2021-11-04] MEDS: GABAPENTIN 300 MG CAP PO SCH ×2 (08:38→19:47)
[2021-11-04] MEDS: HEPARIN SODIUM,PORCINE/PF 5,000 UNIT/0.5 ML SYRINGE SQ SCH ×2 (08:38→19:47)
[2021-11-04] MEDS: KETOROLAC 15 MG/ML 1 ML VIAL IVP PRN ×2 (08:41→15:04)
[2021-11-04 11:43] LABS: HCT 34.4 % (39.6-50.0); HGB 10.2 g/dL (13.0-17.0); MCH 25.4 pg (27.0-32.0); MCHC 29.7 g/dL (32.0-37.0); MCV 85.6 fL (80.0-97.0); Mean Platelet Volume 9.5 fL (9.5-12.2); NRBC Per 100 WBC 0 /100 WBCS (0.0-0.0); Platelet Count 544 X 10*3/uL (140-440); RBC 4.02 X 10*6/uL (4.40-5.60); RDW 14.1 % (11.5-14.5); WBC 8.95 X 10*3/uL (4.50-10.00)
[2021-11-04 11:56] LABS: African American GFR (CKD) 125.5 (60.0-200.0); Albumin 3.3 g/dL (3.8-4.9); Albumin/Globulin Ratio 1.05 (1.60-3.17); Anion Gap 9.8 mmol/L (10.00-18.00); BUN/Creat Ratio 14.74 Ratio (12.00-20.00); Blood Urea Nitrogen 9.9 mg/dL (9.0-27.0); Calcium 8.7 mg/dL (8.7-10.3); Carbon Dioxide 25.2 mmol/L (20.0-27.5); Globulin 3.1 g/dL (1.6-3.3); Non-African American GFR(CKD) 108.2 (60.0-200.0); Potassium 4.6 mmol/L (3.5-5.5); Total Bilirubin 0.3 mg/dL (0.30-1.20); Total Protein 6.4 g/dL (6.2-8.2)
--- NOTE | 2021-11-04 13:27 | P.PN ---
Subjective Progress Note Date: 11/04/21 Hospital course: Patient is a very pleasant 56-year-old male with a past medical history of hypertension, GERD, and Chiari decompression surgery. Patient presented to the emergency department with the chief complaint of bilateral leg pain and weakness. Patient reports this is pending progressively going on over the past month and has significantly worsened over the past 2 weeks. Patient reports he is now experiencing complete numbness of bilateral feet accompanied by pain and tingling traveling up his legs. Patient denies any previous episodes similar to this in the past. He denies having any recent fevers or recent infections. He denies having any falls or injuries. Patient also denies having any back pain, chest pain, palpitations, shortness of breath, or experiencing any other numbness/tingling/weakness throughout any other part of his body. Patient reports this numbness/pain/tingling extends up into his thighs. He denies having any involuntary loss of bowel or bladder. Patient underwent full evaluation in the emergency department, CT lumbar spine negative for acute process. Labs completed. CBC revealing leukocytosis with WBC count of 12.4 and thrombocytosis with platelet count of 698. BMP revealing mild hyponatremia with sodium of 1:30 and hypochloremia with chloride of 97. Inflammatory markers elevated with CRP 13 an ESR of 63. Patient admitted under our services with consultation to neurology. Interval history: Patient was seen and examined at the bedside. He denies any chest pain shortness of breath. Patient still reports pain in the lower extremities with weakness. Reported weakness on the left lower extremity more than the right. He denies any chest pain or shortness breath. Patient status post LP yesterday. Patient was started on IVIG per neurology Physical examination: Vital signs reviewed and stable. General: Nontoxic, no distress and appears stated age. Derm: Skin warm and dry, normal coloration for ethnicity. Head: Atraumatic, normocephalic and symmetric. Eyes: EOMs intact, no lid lag, and anicteric sclera Mouth: no lip lesions, mucus membranes moist Cardiovascular: regular rate and rhythm with normal S1S2, no murmur, positive posterior tibial pulses bilaterally, and cap refill < 2 seconds. Lungs: Respirations even, regular, and unlabored on room air. Lungs CTA bilaterally, no rhonchi, no rales, no wheezing, and no accessory muscle usage. Abdominal: soft, nontender to palpation, no guarding, no appreciable organomegaly Ext: ROM intact. No gross muscle atrophy, no edema, no contractures. Patient does have moderate varicose veins in bilateral lower extremities but does have strong palpable posterior tibial and pedal pulses bilaterally. Patient reports numbness in bilateral feet, cap refill less than 2 seconds and temperature skin is warm. Neuro: Speech clear, face symmetrical and CN II-XII grossly intact with no noted focal neuro deficits Psych: Alert and oriented to person, place, time, and situation. Appropriate and pleasant affect. Assessment and Plan of Care: Bilateral lower extremity numbness and pain, rule out [place] Aquino or other neurological disorder -Neurology following, appreciate further recommendations -Neuro checks every 4 hours -Fall precautions -Safe and supportive care and assistance as needed -Pain management -MRI cervical and thoracic spine revealed marked spinal curvature and upper thoracic spine and postoperative changes from Chiari decompression surgery, and unusual appearance of mid brain with 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 -Patient scheduled to undergo MRI lumbar spine with and without contrast later today -Status post lumbar puncture 11/03 -Inflammatory markers elevated with an ESR of 63 and CRP of 13, we will repeat with a.m. labs -She started on IVIG Mild hyponatremia -Unclear etiology -Likely secondary to dehydration, patient receiving gentle IV fluid hydration. -Check serum and urine osmolarity. -Consult nephrology Thrombocytosis, improved with IV fluid hydration -Likely secondary to dehydration, patient receiving gentle IV fluid hydration. -We will continue to monitor with repeat a.m. labs. Leukocytosis -Improved Hypertension - monitor vital signs and continue daily medication regimen with lisinopril CODE STATUS: Full code DVT prophylaxis: Heparin Discussed with: Patient and RN Anticipated discharge date: clinical course to determine Anticipated discharge place: home A total of 35 minutes was spent on the care of this complex patient more than 50% of the time was spent in counseling and care coordination. Objective - Vital Signs Vital signs: Vital Signs Temp 98.9 F 11/04/21 07:47 Pulse 97 11/04/21 07:47 Resp 16 11/04/21 08:43 BP 134/82 11/04/21 07:47 Pulse Ox 96 11/04/21 07:47 FiO2 Intake & Output 11/03/21 11/04/21 11/04/21 18:59 06:59 18:59 Intake Total 270 118 Output Total 0 Balance 270 0 118 Intake: IV 50 Oral 220 118 Output: Emesis 0 Other: Voiding Method Toilet Toilet Toilet # Voids 2 1 - Labs CBC & Chem 7: 11/04/21 07:07 11/04/21 07:07 Labs: Abnormal Lab Results - Last 24 Hours (Table) 11/02/21 11/03/21 11/04/21 Range/Units 12:19 11:32 07:07 RBC 4.02 L (4.40-5.60) X 10*6/uL Hgb 10.2 L (13.0-17.0) g/dL Hct 34.4 L (39.6-50.0) % MCH 25.4 L (27.0-32.0) pg MCHC 29.7 L (32.0-37.0) g/dL Plt Count 544 H (140-440) X 10*3/uL Sodium (135-145) mmol/L Anion Gap (10.00-18.00) mmol/L ALT (10-49) U/L C-Reactive Protein (0.00-0.80) mg/dL Albumin (3.8-4.9) g/dL Albumin (PEP) 2.58 L (3.80-4.90) g/dL Albumin/Globulin Ratio (1.60-3.17) g/dL Nlabd-9-Cubkkyhan 0.57 H (0.10-0.40) g/dL Othdb-7-Liyglfsjo 1.15 H (0.60-1.00) g/dL CSF Glucose 73 H (40-70) mg/dL 11/04/21 Range/Units 07:07 RBC (4.40-5.60) X 10*6/uL Hgb (13.0-17.0) g/dL Hct (39.6-50.0) % MCH (27.0-32.0) pg MCHC (32.0-37.0) g/dL Plt Count (140-440) X 10*3/uL Sodium 132 L (135-145) mmol/L Anion Gap 9.80 L (10.00-18.00) mmol/L ALT 50 H (10-49) U/L C-Reactive Protein 11.00 H (0.00-0.80) mg/dL Albumin 3.3 L (3.8-4.9) g/dL Albumin (PEP) (3.80-4.90) g/dL Albumin/Globulin Ratio 1.05 L (1.60-3.17) g/dL Dxumg-6-Xadxgjsxj (0.10-0.40) g/dL Tczwe-5-Gbvotsjlw (0.60-1.00) g/dL CSF Glucose (40-70) mg/dL
[2021-11-04 13:56] LABS: Erythrocyte Sedimentation Rate 60 mm/Hr (0-20)
--- NOTE | 2021-11-04 15:01 | CT ---
EXAMINATION TYPE: CT brain wo con DATE OF EXAM: 11/04/2021 COMPARISON: 05/30/2018 HISTORY: sinus drainage, pt wonders if possoble to left leg swelling, pt has a auto immune disease CT DLP: 1152.5 mGycm Automated exposure control for dose reduction was used. There is mild cerebral cortical atrophy. There is no mass effect nor midline shift. No sign of intrac ranial hemorrhage. There is some mucosal thickening in the ethmoid air cells. There is normal aeratio n of the mastoid air cells. Sella turcica appears normal. There is occipital craniotomy defect. 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 IMPRESSION: No acute intracranial abnormality. There is ethmoid sinusitis that appears new compared to old exam.
[2021-11-04] MEDS ORDERED: IMMUNE GLOBULIN (GAMMAGARD) 30 GM in EMPTY BAG 1 BAG IV ONE (18:00)
[2021-11-04] MEDS: CHOLECALCIFEROL 25 MCG (1000 IU) TABLET PO SCH (19:47)
[2021-11-04] MEDS: HYDROcodone/APAP 5-325MG 1 EACH TAB PO PRN (22:02)
--- NOTE | 2021-11-05 00:05 | P.PN ---
Subjective Progress Note Date: 11/03/21 Patient was seen for a follow-up. Patient states that his feet are equally hurting bilaterally. Left foot is slightly more numb as compared to the right. Denies any back pain. Denies any neck pain. No symptoms in the upper extremities. Patient is noticing difficulty with walking because of the feet numb, does not feel it. Patient denies any problem with bowel or bladder control. No numbness of the truncal region or perineal region. No symptoms attributed to the cranial nerves system. Objective - Vital Signs Vital signs: Vital Signs Temp 98.3 F 11/03/21 15:05 Pulse 107 H 11/03/21 15:05 Resp 18 11/03/21 15:05 BP 149/80 11/03/21 15:05 Pulse Ox 96 11/03/21 15:05 FiO2 Intake & Output 11/02/21 11/03/21 11/03/21 18:59 06:59 18:59 Intake Total 270 Output Total 0 Balance 0 270 Weight 68.039 kg Intake: IV 50 Oral 220 Output: Emesis 0 Other: Voiding Method Toilet # Voids 1 - Exam Patient's mental status, cranial nerves are normal. Muscle strength is normal in both upper limbs. In the lower limbs, and the strength is completely normal in bilateral hip flexion, adduction, abduction, knee extension, knee flexion. Distally (right/left) ankle dorsiflexion 5/3+4-, inversion 5/4-, peronei 5/4-, toe extension 4/0. Deep tendon reflexes are symmetric in the upper limbs 2+ at the biceps and brac hioradialis, 3 at both knees, 2+ at the right ankle, 1+to 2 at the left ankle. Plantars are flat. Sensory is decreased distally in the toes up to 2 inches above the ankle. Patient walks unsteadily because of left foot weakness. - Labs CBC & Chem 7: 11/04/21 07:07 11/04/21 07:07 Labs: Abnormal Lab Results - Last 24 Hours (Table) 11/02/21 11/02/21 11/02/21 Range/Units 12:19 12:19 12:19 WBC (4.50-10.00) X 10*3/uL Hgb (13.0-17.0) g/dL Hct (39.6-50.0) % MCH (27.0-32.0) pg MCHC (32.0-37.0) g/dL Plt Count (140-440) X 10*3/uL MPV (9.5-12.2) fL Sodium (135-145) mmol/L BUN/Creatinine Ratio (12.00-20.00) Ratio Hemoglobin A1c 6.2 H (0.0-6.0) % Calcium (8.7-10.3) mg/dL Total Protein (PEP) 5.8 L (6.2-8.2) g/dL Albumin (3.8-4.9) g/dL Albumin (PEP) 2.58 L (3.80-4.90) g/dL Albumin/Globulin Ratio (1.60-3.17) g/dL Ctqlb-2-Jjxyjmffd 0.57 H (0.10-0.40) g/dL Vfkgt-2-Ebjosdpkd 1.15 H (0.60-1.00) g/dL Folate 3.90 L (4.40-31.00) ng/mL CSF Glucose (40-70) mg/dL 11/03/21 11/03/21 11/03/21 Range/Units 05:50 05:50 11:32 WBC 13.04 H (4.50-10.00) X 10*3/uL Hgb 11.6 L (13.0-17.0) g/dL Hct 37.2 L (39.6-50.0) % MCH 26.2 L (27.0-32.0) pg MCHC 31.2 L (32.0-37.0) g/dL Plt Count 596 H (140-440) X 10*3/uL MPV 9.1 L (9.5-12.2) fL Sodium 134 L (135-145) mmol/L BUN/Creatinine Ratio 22.17 H (12.00-20.00) Ratio Hemoglobin A1c (0.0-6.0) % Calcium 8.6 L (8.7-10.3) mg/dL Total Protein (PEP) (6.2-8.2) g/dL Albumin 3.4 L (3.8-4.9) g/dL Albumin (PEP) (3.80-4.90) g/dL Albumin/Globulin Ratio 1.23 L (1.60-3.17) g/dL Vwrve-6-Qflgiwoxd (0.10-0.40) g/dL Gumjc-3-Ariwkulxx (0.60-1.00) g/dL Folate (4.40-31.00) ng/mL CSF Glucose 73 H (40-70) mg/dL Assessment and Plan Assessment: * New onset, 4 week history of progressive numbness and weakness of distal bilateral lower extremities. Examination reveals preserved deep tendon refl exes. Patient had upper respiratory infection prior to onset of these symptoms. Possible inflammatory polyneuritis. Symptoms are not typical of Guillain-Aquino syndrome. Rule out myelopathy. * History of cervical decompression surgery for Chiari malformation in 2013. Denies any injury or neck pain at this time. * History of herpes zoster (affecting right shoulder region) around May 2021 Plan: * MRI of the cervical spine with and without contrast revealed no acute findings. There are postoperative changes, unusual appearance of the patient's mid brain with inferior descent of the cerebellar tonsils again noted. No significant spinal stenosis. * MRI of the thoracic spine with and without contrast revealed marked spinal curvature in the upper thoracic spine convex left. No spinal stenosis. No abnormal cord signal. * MRI of lumbar spines with and without contrast revealed mild degenerative disc disease. There is scoliotic curvature, findings consistent with narrow reconversion. * I personally reviewed all MRI as above and agree with the findings. No a bnormal cord signal seen. * Patient's ESR is 63, hemoglobin A1c 6.2, B12 634, folate 3.9, quantitative immunoglobulins are normal. Serum immunoelectrophoresis, protein electrophoresis normal. No monoclonal gammopathy. Sjogren's antibodies, JAMIE negative. Lyme titer, RPR negative. Patient will be started on folate replacement. * Lumbar puncture revealed WBC count 1, RBC 2, glucose 73, protein 47. * Patient's peripheral neuropathy is progressing. Patient has now developed left foot drop, which is new, as compared to yesterday. Although patient's spinal fluid proteins are normal, deep tendon reflexes are preserved, but patient is behaving as possible immune polyneuropathy. Due to rapid progression of disease, patient will be started on IVIG 0.5 g/kg per day for 4 days. * Patient to be started on heparin 5000 units subcu every 12 hours. Discussed with primary team.
--- NOTE | 2021-11-05 00:11 | P.PN ---
Subjective Progress Note Date: 11/04/21 05/06/2022: This is a telemedicine neurology follow performed today on 11/04/2021. Patient states his left foot is slightly getting swollen now. There is peripheral edema. Patient had a venous Doppler of bilateral lower extremities performed on 10/23/2021, which was negative for any DVT. Denies any changes in condition. No new symptoms as mentioned below on 05/05/2022. Patient is complaining of sinus congestion, intermittent bleeding from the nasal secretions. 05/05/2022: Patient was seen for a follow-up. Patient states that his feet are equally hurting bilaterally. Left foot is slightly more numb as compared to the right. Denies any back pain. Denies any neck pain. No symptoms in the upper extremities. Patient is noticing difficulty with walking because of the feet numb, does not feel it. Patient denies any problem with bowel or bladder control. No numbness of the truncal region or perineal region. No symptoms attributed to the cranial nerves system. Objective - Vital Signs Vital signs: Vital Signs Temp 98.3 F 11/04/21 19:20 Pulse 99 11/04/21 19:54 Resp 18 11/04/21 19:54 BP 157/90 11/04/21 19:20 Pulse Ox 99 11/04/21 19:20 FiO2 Intake & Output 11/04/21 11/04/21 11/05/21 06:59 18:59 06:59 Intake Total 358 Output Total 0 0 Balance 0 358 0 Intake: Oral 358 Output: Emesis 0 0 Other: Voiding Method Toilet Toilet Toilet # Voids 2 8 1 - Exam 11/04/2021: Patient's mental status, speech and language functions, cranial nerves are normal. Patient has several of swelling of the left foot. Still with left foot weakness. Right ankle is normal. No change. 11/03/2021: Patient's mental status, cranial nerves are normal. Muscle strength is normal in both upper limbs. In the lower limbs, and the strength is completely normal in bilateral hip flexion, adduction, abduction, knee extension, knee flexion. Distally (right/left) ankle dorsiflexion 5/3+4-, inversion 5/4-, peronei 5/4-, toe extension 4/0. Deep tendon reflexes are symmetric in the upper limbs 2+ at the biceps and brachioradialis, 3 at both knees, 2+ at the right ankle, 1+to 2 at the left ankle. Plantars are flat. Sensory is decreased distally in the toes up to 2 inches above the ankle. Patient walks unsteadily because of left foot weakness. - Labs CBC & Chem 7: 11/04/21 07:07 11/04/21 07:07 Labs: Abnormal Lab Results - Last 24 Hours (Table) 11/04/21 11/04/21 11/04/21 Range/Units 07:07 07:07 07:07 RBC 4.02 L (4.40-5.60) X 10*6/uL Hgb 10.2 L (13.0-17.0) g/dL Hct 34.4 L (39.6-50.0) % MCH 25.4 L (27.0-32.0) pg MCHC 29.7 L (32.0-37.0) g/dL Plt Count 544 H (140-440) X 10*3/uL ESR 60 H (0-20) mm/Hr Sodium 132 L (135-145) mmol/L Anion Gap 9.80 L (10.00-18.00) mmol/L Osmolality 273 L (280-301) mosm/kg ALT 50 H (10-49) U/L C-Reactive Protein 11.00 H (0.00-0.80) mg/dL Albumin 3.3 L (3.8-4.9) g/dL Albumin/Globulin Ratio 1.05 L (1.60-3.17) g/dL Assessment and Plan Assessment: * New onset, 4 week history of progressive numbness and weakness of distal bilateral lower extremities. Examination reveals preserved deep tendon reflexes. Patient had upper respiratory infection prior to onset of these symptoms. Possible inflammatory polyneuritis. Symptoms are not typical of Guillain-Aquino syndrome. Rule out myelopathy. * History of cervical decompression surgery for Chiari malformation in 2013. Denies any injury or neck pain at this time. * History of herpes zoster (affecting right shoulder region) around May 2021 Plan: * Patient has received 1 dose of IVIG. No change in symptoms. We will perform a computed tomography scan of the head to rule out any central process. Patient also complaining of significant sinus congestion, and bleeding with the nasal secretions. Patient may need an ENT. * MRI of the cervical spine with and without contrast revealed no acute findings. There are postoperative changes, unusual appearance of the patient's mid brain with inferior descent of the cerebellar tonsils again noted. No significant spinal stenosis. * MRI of the thoracic spine with and without contrast revealed marked spinal curvature in the upper thoracic spine convex left. No spinal stenosis. No abnormal cord signal. * MRI of lumbar spines with and without contrast revealed mild degenerative disc disease. There is scoliotic curvature, findings consistent with narrow reconversion. * I personally reviewed all MRI as above and agree with the findings. No abnormal cord signal seen. * Patient's ESR is 63, hemoglobin A1c 6.2, B12 634, folate 3.9, quantitative immunoglobulins are normal. Serum immunoelectrophoresis, protein electrophoresis normal. No monoclonal gammopathy. Sjogren's antibodies, JAMIE negative. Lyme titer, RPR negative. Patient will be started on folate replacement. * Lumbar puncture revealed WBC count 1, RBC 2, glucose 73, protein 47. * Patient's peripheral neuropathy is progressing. Patient has now developed left foot drop, which is new, as compared to yesterday. Although patient's spinal fluid proteins are normal, deep tendon reflexes are preserved, but patient is behaving as possible immune polyneuropathy. Due to rapid progression of disease, patient will be started on IVIG 0.5 g/kg per day for 4 days. * Patient to be started on heparin 5000 units subcu every 12 hours.
[2021-11-05] MEDS: SODIUM CHLORIDE 0.9% 1,000 ML IV SCH ×2 (03:10→17:02)
[2021-11-05] MEDS: KETOROLAC 15 MG/ML 1 ML VIAL IVP PRN (03:11)
[2021-11-05] MEDS: HYDROcodone/APAP 5-325MG 1 EACH TAB PO PRN ×2 (07:56→20:05)
[2021-11-05] MEDS: lisinopriL 10 MG TAB PO SCH (07:56)
[2021-11-05] MEDS: GABAPENTIN 300 MG CAP PO SCH ×3 (07:57→21:57)
[2021-11-05] MEDS: HEPARIN SODIUM,PORCINE/PF 5,000 UNIT/0.5 ML SYRINGE SQ SCH ×2 (07:58→20:05)
[2021-11-05] MEDS: FOLIC ACID 1 MG TAB PO SCH (07:58)
[2021-11-05 09:36] LABS: Basophils # (A) 0.03 X 10*3/uL (0.00-0.10); Basophils % (A) 0.5 %; Eosinophils # (A) 0.43 X 10*3/uL (0.04-0.35); Eosinophils % (A) 7.8 %; HCT 32.9 % (39.6-50.0); HGB 10.1 g/dL (13.0-17.0); Immature Grans, Automated 1.3 %; Lymphocytes # (A) 0.68 X 10*3/uL (0.90-5.00); Lymphocytes % (A) 12.3 %; MCHC 30.7 g/dL (32.0-37.0); MCV 84.8 fL (80.0-97.0); Mean Platelet Volume 9.3 fL (9.5-12.2); Monocytes # (A) 0.67 X 10*3/uL (0.20-1.00); Monocytes % (A) 12.2 %; NRBC Per 100 WBC 0 /100 WBCS (0.0-0.0); Neutrophils # (A) 3.63 X 10*3/uL (1.80-7.70); Neutrophils % (A) 65.9 %; Platelet Count 474 X 10*3/uL (140-440); RBC 3.88 X 10*6/uL (4.40-5.60); RDW 13.9 % (11.5-14.5); WBC 5.51 X 10*3/uL (4.50-10.00)
[2021-11-05 10:08] LABS: African American GFR (CKD) 123.1 (60.0-200.0); Anion Gap 11.7 mmol/L (10.00-18.00); Blood Urea Nitrogen 9.8 mg/dL (9.0-27.0); Calcium 8.5 mg/dL (8.7-10.3); Carbon Dioxide 24.3 mmol/L (20.0-27.5); Non-African American GFR(CKD) 106.2 (60.0-200.0)
--- NOTE | 2021-11-05 10:25 | P.NPCON ---
History of Present Illness - Reason for Consult hyponatremia - History of Present Illness Patient is a 56-year-old male admitted to the hospital with complaints of progressive lower extremity weakness and loss of sensation. No history of back pain or trauma. No history of fever He denies any shortness of breath. No significant infections recently No recent Covid vaccines. 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 So far he has received one dose and is scheduled for a second dose today. Symptoms have not significantly improved yet. Serum sodium was 130 on initial admission and to date is at 134. No previous history of hyponatremia. Patient received normal saline infusion. No hypotension noted Serum creatinine 0.7 mg/dL. Review of Systems As per HPI, other systems negative Past Medical History Past Medical History: GERD/Reflux, Hypertension Additional Past Medical History / Comment(s): acute pancreatitis History of Any Multi-Drug Resistant Organisms: None Reported Additional Past Surgical History / Comment(s): chiari decompression surgery Past Anesthesia/Blood Transfusion Reactions: No Reported Reaction Past Psychological History: No Psychological Hx Reported Smoking Status: Never smoker Past Alcohol Use History: None Reported Past Drug Use History: None Reported - Past Family History Mother Family Medical History: Cancer Additional Family Medical History / Comment(s): thyroid cancer Father Family Medical History: AFIB Medications and Allergies Home Medications Medication Instructions Recorded Confirmed Type lisinopriL [Prinivil] 10 mg PO DAILY 07/08/15 11/02/21 History Cholecalciferol (Vitamin D3) 75 mcg PO HS 11/02/21 11/02/21 History [Vitamin D3 (3000 Iu)] Allergies Allergy/AdvReac Type Severity Reaction Status Date / Time No Known Allergies Allergy Verified 11/02/21 07:27 Physical Exam Vitals: Vital Signs Temp Pulse Pulse Resp BP BP Pulse Ox 11/05/21 09:30 88 132/74 98 11/05/21 08:06 12 11/05/21 07:51 97.8 F 90 12 156/96 97 11/05/21 01:53 97.7 F 67 18 136/72 100 11/04/21 19:54 89 99 18 11/04/21 19:20 98.3 F 89 16 157/90 99 11/04/21 18:00 98.7 F 89 18 142/91 100 11/04/21 15:00 98.8 F 95 16 132/85 99 Intake and Output 11/04/21 11/05/21 11/05/21 22:59 06:59 14:59 Intake Total 240 Output Total 0 Balance 0 240 Intake: Oral 240 Output: Emesis 0 Other: Voiding Method Toilet Toilet # Voids 1 3 Patient is awake, comfortable, not in any acute distress Alert oriented 3 Examination of the heart S1 and S2 Examination lungs bilateral breath sounds are heard Abdomen is soft nontender Examination lower extremities shows mild weakness and decreased sensation Results - Lab Results Most recent lab results Calcium 8.5 mg/dL (8.7-10.3) L 11/05/21 06:31 Magnesium 2.0 mg/dL (1.5-2.4) 11/04/21 07:07 11/05/21 06:31 11/05/21 06:31 Assessment and Plan Assessment: 1. Hyponatremia appears to be hypovolemic and improved with saline administration. Administration of IVIG can be associated with hyponatremia however's patient's serum sodium has been progressively increasing. He is advised to increase oral intake of protein. We will continue to monitor for now. May continue with the saline. 2. Lower extremity weakness which is progressive being treated for Guillain- Gross syndrome. Patient is being followed by neurology. He is receiving IVIG 3. Hypertension maintained on KATE inhibitor's 4. Nutritional vitamin D deficiency maintained on supplementation Plan: Continue to monitor serum sodium level. Patient is maintained on normal saline Consider plasmapheresis, patient is being followed by neurology Repeat labs in a.m. Patient is encouraged to increase oral protein intake.
--- NOTE | 2021-11-05 10:55 | P.PN ---
Subjective Patient is 56-year-old male with history of hypertension, GERD, Chiari decompression surgery. He was admitted with progressively worsening bilateral lower extremity weakness, pain and numbness. MRI of the cervical thoracic and lumbar spine without any cord compression. Neurology evaluated, felt to be due to progressively worsening polyneuropathy, possibility of [place] Aquino's. Started on IVIG. Today he is feeling about the same, he does not feel that the weakness and numbness is getting worse. He denies any difficulties with breathing or GI complaints. No difficulties with bowel movements or urination. Objective - Vital Signs Vital signs: Vital Signs Temp 97.8 F 11/05/21 07:51 Pulse 88 11/05/21 09:30 Resp 12 11/05/21 08:06 BP 132/74 11/05/21 09:30 Pulse Ox 98 11/05/21 09:30 FiO2 Intake & Output 11/04/21 11/05/21 11/05/21 18:59 06:59 18:59 Intake Total 358 240 Output Total 0 Balance 358 0 240 Intake: Oral 358 240 Output: Emesis 0 Other: Voiding Method Toilet Toilet Toilet # Voids 8 3 - Exam Awake alert oriented 3, no acute distress Head and neck: Anicteric sclera, extraocular movements intact, no facial asymmetry, oropharyngeal mucosa is moist without any lesions, neck is supple without rigidity, no neck masses or neck vein distention Heart: Regular rhythm and rate, S1, S2; no murmurs rubs or gallops Lungs: Breath sounds present bilateral, no wheezing, rhonchi or crackles Abdomen: Bowel sounds present throughout, abdomen is soft, nontender, nondistended, no involuntary guarding, no hernias or organomegaly, no flank tenderness Extremities: 1+ mostly pedal l edema, no cyanosis, warm well perfused with palpable dorsalis pedis pulses bilateral and good capillary refill, without joint swelling or deformities Neurological: Diminished sensitivity to light touch in both feet, DTRs patellar are diminished, no ankle clonus - Labs CBC & Chem 7: 11/05/21 06:31 11/05/21 06:31 Labs: Abnormal Lab Results - Last 24 Hours (Table) 11/04/21 11/04/21 11/04/21 Range/Units 07:07 07:07 07:07 RBC 4.02 L (4.40-5.60) X 10*6/uL Hgb 10.2 L (13.0-17.0) g/dL Hct 34.4 L (39.6-50.0) % MCH 25.4 L (27.0-32.0) pg MCHC 29.7 L (32.0-37.0) g/dL Plt Count 544 H (140-440) X 10*3/uL MPV (9.5-12.2) fL Immature Gran # (0.00-0.04) X 10*3/uL Lymphocytes # (0.90-5.00) X 10*3/uL Eosinophils # (0.04-0.35) X 10*3/uL ESR 60 H (0-20) mm/Hr Sodium 132 L (135-145) mmol/L Anion Gap 9.80 L (10.00-18.00) mmol/L Osmolality 273 L (280-301) mosm/kg Calcium (8.7-10.3) mg/dL ALT 50 H (10-49) U/L C-Reactive Protein 11.00 H (0.00-0.80) mg/dL Albumin 3.3 L (3.8-4.9) g/dL Albumin/Globulin Ratio 1.05 L (1.60-3.17) g/dL 11/05/21 11/05/21 Range/Units 06:31 06:31 RBC 3.88 L (4.40-5.60) X 10*6/uL Hgb 10.1 L (13.0-17.0) g/dL Hct 32.9 L (39.6-50.0) % MCH 26.0 L (27.0-32.0) pg MCHC 30.7 L (32.0-37.0) g/dL Plt Count 474 H (140-440) X 10*3/uL MPV 9.3 L (9.5-12.2) fL Immature Gran # 0.07 H (0.00-0.04) X 10*3/uL Lymphocytes # 0.68 L (0.90-5.00) X 10*3/uL Eosinophils # 0.43 H (0.04-0.35) X 10*3/uL ESR (0-20) mm/Hr Sodium 134 L (135-145) mmol/L Anion Gap (10.00-18.00) mmol/L Osmolality (280-301) mosm/kg Calcium 8.5 L (8.7-10.3) mg/dL ALT (10-49) U/L C-Reactive Protein (0.00-0.80) mg/dL Albumin (3.8-4.9) g/dL Albumin/Globulin Ratio (1.60-3.17) g/dL Assessment and Plan Assessment: #Bilateral lower extremity weakness and numbness -Neurology following, suspicion for immune polyneuropathy, GBS IVIG started 11/04/21, plan for 45 doses -Neuro checks every 4 hours -Fall precautions -Pain management: Started on gabapentin by neurology -MRI cervical and thoracic spine revealed marked spinal curvature and upper thoracic spine and postoperative changes from Chiari decompression surgery, and unusual appearance of mid brain with 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 -MRI lumbar spine with and without contrast: No cord abnormality -Status post lumbar puncture 11/03: Normal cell count and protein -Inflammatory markers elevated with an ESR of 63 and CRP of 13 #Mild hyponatremia Improving -Neurology following #Thrombocytosis, improved with IV fluid hydration -Likely secondary to dehydration, patient receiving gentle IV fluid hydration. -We will continue to monitor with repeat a.m. labs. #Lower extremity edema Obtain Doppler's Leukocytosis -Improved Hypertension - monitor vital signs and continue daily medication regimen with lisinopril
--- NOTE | 2021-11-05 12:21 | US ---
EXAMINATION TYPE: US venous doppler duplex LE DATE OF EXAM: 11/05/2021 11:47 AM COMPARISON: NONE CLINICAL HISTORY: Swelling. Bilat leg pain x 3 weeks. SIDE PERFORMED: Bilateral TECHNIQUE: The lower extremity deep venous system is examined utilizing real time linear array sonog bright with graded compression, doppler sonography and color-flow sonography. VESSELS IMAGED: Common Femoral Vein Deep Femoral Vein Greater Saphenous Vein * Femoral Vein Popliteal Vein Small Saphenous Vein * Proximal Calf Veins (* superficial vessels) Grayscale, color doppler, spectral doppler imaging performed of the deep veins of the lower extremiti es. There is normal flow, compressibility, vascular waveforms. Right Leg: Negative for DVT Left Leg: Negative for DVT IMPRESSION: No evidence for deep vein thrombosis of either lower extremity,
[2021-11-05] MEDS ORDERED: KETOROLAC 15 MG/ML 1 ML VIAL IVP PRN (12:26)
[2021-11-05] MEDS ORDERED: polyethylene glycoL 3350 17 GM POWD.PACK PO PRN (12:28)
[2021-11-05] MEDS: IBUPROFEN 400 MG TAB PO PRN (15:07)
[2021-11-05] MEDS ORDERED: IMMUNE GLOBULIN (GAMMAGARD) 30 GM in EMPTY BAG 1 BAG IV ONE (18:00)
[2021-11-05] MEDS: CHOLECALCIFEROL 25 MCG (1000 IU) TABLET PO SCH (20:05)
[2021-11-05] MEDS: DOCUSATE 100 MG CAP PO SCH (20:05)
--- NOTE | 2021-11-06 01:57 | P.PN ---
Subjective Progress Note Date: 11/05/21 05/07/2022: This is a telemedicine neurology follow performed today on 11/05/2021. Patient states his both feet are swollen. He has received 2 doses of IVIG. Patient continues to have pain in the feet only, but is mild 2/10 if he is sitting. It flares up if he lays flat. When it goes up to 10/10. Romain schneider denies any back pain. No problem with controls of bowel or bladder. He is slightly constipated from narcotics. Patient states that he is slightly better, as he can feel bottom of the floor with the heel of the right foot, which he could not do it yesterday. The left foot is still numb all over. No symptoms in the upper extremities. There is no new progression of the disease. 05/06/2022: This is a telemedicine neurology follow performed today on 11/04/2021. Patient states his left foot is slightly getting swollen now. There is peripheral edema. Patient had a venous Doppler of bilateral lower extremities performed on 10/23/2021, which was negative for any DVT. Denies any changes in condition. No new symptoms as mentioned below on 05/05/2022. Patient is complaining of sinus congestion, intermittent bleeding from the nasal secretions. 05/05/2022: Patient was seen for a follow-up. Patient states that his feet are equally hurting bilaterally. Left foot is slightly more numb as compared to the right. Denies any back pain. Denies any neck pain. No symptoms in the upper extremities. Patient is noticing difficulty with walking because of the feet numb, does not feel it. Patient denies any problem with bowel or bladder control. No numbness of the truncal region or perineal region. No symptoms attributed to the cranial nerves system. Objective - Vital Signs Vital signs: Vital Signs Temp 98.0 F 11/05/21 20:00 Pulse 88 11/05/21 20:00 Resp 18 11/05/21 20:00 BP 147/85 11/05/21 20:00 Pulse Ox 97 11/05/21 20:00 FiO2 Intake & Output 11/05/21 11/05/21 11/06/21 06:59 18:59 06:59 Intake Total 476 240 Output Total 0 Balance 0 476 240 Intake: Oral 476 240 Output: Emesis 0 Other: Voiding Method Toilet Toilet Toilet # Voids 3 3 1 # Bowel Movements 1 - Exam 11/05/2021: Mental status, speech and language functions are normal. Cranial nerves are normal. Muscle strength is normal in the arms. Patient continues to have weakness of the left foot dorsiflexion and plantarflexion. Right foot appears normal. 11/04/2021: Patient's mental status, speech and language functions, cranial nerves are normal. Patient has several of swelling of the left foot. Still with left foot weakness. Right ankle is normal. No change. 11/03/2021: Patient's mental status, cranial nerves are normal. Muscle strength is normal in both upper limbs. In the lower limbs, and the strength is completely normal in bilateral hip flexion, adduction, abduction, knee extension, knee flexion. Distally (right/left) ankle dorsiflexion 5/3+4-, inversion 5/4-, peronei 5/4-, toe extension 4/0. Deep tendon reflexes are symmetric in the upper limbs 2+ at the biceps and brachioradialis, 3 at both knees, 2+ at the right ankle, 1+to 2 at the left ankle. Plantars are flat. Sensory is decreased distally in the toes up to 2 inches above the ankle. Patient walks unsteadily because of left foot weakness. - Labs CBC & Chem 7: 11/05/21 06:31 11/05/21 06:31 Labs: Abnormal Lab Results - Last 24 Hours (Table) 11/05/21 11/05/21 Range/Units 06:31 06:31 RBC 3.88 L (4.40-5.60) X 10*6/uL Hgb 10.1 L (13.0-17.0) g/dL Hct 32.9 L (39.6-50.0) % MCH 26.0 L (27.0-32.0) pg MCHC 30.7 L (32.0-37.0) g/dL Plt Count 474 H (140-440) X 10*3/uL MPV 9.3 L (9.5-12.2) fL Immature Gran # 0.07 H (0.00-0.04) X 10*3/uL Lymphocytes # 0.68 L (0.90-5.00) X 10*3/uL Eosinophils # 0.43 H (0.04-0.35) X 10*3/uL Sodium 134 L (135-145) mmol/L Calcium 8.5 L (8.7-10.3) mg/dL Assessment and Plan Assessment: * New onset, 4 week history of progressive numbness and weakness of distal bilateral lower extremities. Examination reveals preserved deep tendon reflexes. Patient had upper respiratory infection prior to onset of these symptoms. Possible inflammatory polyneuritis. Symptoms are not typical of Guillain-Aquino syndrome. Rule out myelopathy. * History of cervical decompression surgery for Chiari malformation in 2013. Denies any injury or neck pain at this time. * History of herpes zoster (affecting right shoulder region) around May 2021 Plan: * Patient has received 2/4 dose of IVIG. Today he is noticing slight improvement, as he can feel the floor on bottom of the heel of the right foot. The left foot is still numb. No worsening of symptoms. Continue IVIG. For neuropathic pain, we will increase Neurontin to 300 mg 3 times a day. * For leg swelling, we will start knee-high stockings. * Computed tomography scan of the head showed no acute intracranial process. There is ethmoid sinusitis that appears new compared to old exam. Suggest starting antibiotics for sinusitis. * MRI of the cervical spine with and without contrast revealed no acute findings. There are postoperative changes, unusual appearance of the patient's mid brain with inferior descent of the cerebellar tonsils again noted. No significant spinal stenosis. * MRI of the thoracic spine with and without contrast revealed marked spinal curvature in the upper thoracic spine convex left. No spinal stenosis. No abnormal cord signal. * MRI of lumbar spines with and without contrast revealed mild degenerative disc disease. There is scoliotic curvature, findings consistent with narrow rec onversion. * I personally reviewed all MRI as above and agree with the findings. No abnormal cord signal seen. * Patient's ESR is 63, hemoglobin A1c 6.2, B12 634, folate 3.9, quantitative immunoglobulins are normal. Serum immunoelectrophoresis, protein electrophoresis normal. No monoclonal gammopathy. Sjogren's antibodies, JAMIE negative. Lyme titer negative, RPR negative. Patient will be started on folate replacement. * Lumbar puncture revealed WBC count 1, RBC 2, glucose 73, protein 47. * Continue heparin 5000 units subcu every 12 hours for DVT prophylaxis. Doppler ultrasound of bilateral lower ex-20 negative for DVT. * Dr. Ross Braxton Will resume neurology service in the morning.
[2021-11-06] MEDS: SODIUM CHLORIDE 0.9% 1,000 ML IV SCH (04:15)
[2021-11-06] MEDS: DOCUSATE 100 MG CAP PO SCH ×2 (07:18→20:15)
[2021-11-06] MEDS: HEPARIN SODIUM,PORCINE/PF 5,000 UNIT/0.5 ML SYRINGE SQ SCH ×2 (07:18→20:18)
[2021-11-06] MEDS: GABAPENTIN 300 MG CAP PO SCH ×3 (07:19→22:08)
[2021-11-06] MEDS: IBUPROFEN 400 MG TAB PO PRN (07:19)
[2021-11-06] MEDS: FOLIC ACID 1 MG TAB PO SCH (07:19)
[2021-11-06] MEDS: lisinopriL 10 MG TAB PO SCH (07:19)
--- NOTE | 2021-11-06 08:29 | P.PN ---
Subjective Patient is seen in follow-up for hyponatremia. Sodium level 134 yesterday. Left foot pain better. Able to ambulate the hallways. Oral intake.. Vital signs are stable. General: Awake. No acute distress. HEENT: Head exam is unremarkable. LUNGS: Breath sounds decreased. HEART: Rate and Rhythm are regular. ABDOMEN: Soft, no distention. EXTREMITITES: No edema. Objective - Vital Signs Vital signs: Vital Signs Temp 98.6 F 11/06/21 05:00 Pulse 104 H 11/06/21 05:00 Resp 16 11/06/21 05:00 BP 144/87 11/06/21 05:00 Pulse Ox 97 11/06/21 05:00 FiO2 Intake & Output 11/05/21 11/06/21 11/06/21 18:59 06:59 18:59 Intake Total 476 2090 Balance 476 2090 Intake: Intake, IV Titration 900 Amount Sodium Chloride 0.9% 1, 900 000 ml @ 75 mls/hr IV . [id number] [facility] Rx#:[id number] Oral 476 1190 Other: Voiding Method Toilet Toilet # Voids 3 1 # Bowel Movements 1 - Labs CBC & Chem 7: 11/05/21 06:31 11/05/21 06:31 Labs: Abnormal Lab Results - Last 24 Hours (Table) 11/05/21 11/05/21 Range/Units 06:31 06:31 RBC 3.88 L (4.40-5.60) X 10*6/uL Hgb 10.1 L (13.0-17.0) g/dL Hct 32.9 L (39.6-50.0) % MCH 26.0 L (27.0-32.0) pg MCHC 30.7 L (32.0-37.0) g/dL Plt Count 474 H (140-440) X 10*3/uL MPV 9.3 L (9.5-12.2) fL Immature Gran # 0.07 H (0.00-0.04) X 10*3/uL Lymphocytes # 0.68 L (0.90-5.00) X 10*3/uL Eosinophils # 0.43 H (0.04-0.35) X 10*3/uL Sodium 134 L (135-145) mmol/L Calcium 8.5 L (8.7-10.3) mg/dL Assessment and Plan Plan: Assessment: 1. Hypovolemic hyponatremia improved with IV hydration. Urine sodium 87 and urine osmolality 360. Receiving NSAIDs for pain. 2. Weakness of lower extremities possibly inflammatory polyneuritis. Neurology following. 3. Benign hypertension. Stable. Plan: Maintain normal saline for now. Avoid NSAIDs. 1500 mL fluid restriction. Encouraged oral intake. Follow-up morning labs.
[2021-11-06 10:43] LABS: African American GFR (CKD) >90 (>60 ml/min/1.73 sqM); Anion Gap 8 mmol/L; Blood Urea Nitrogen 9 mg/dL (9-20); Calcium 8.5 mg/dL (8.4-10.2); Carbon Dioxide 27 mmol/L (22-30); Chloride 97 mmol/L (98-107); Glucose 214 mg/dL (74-99); Magnesium 1.9 mg/dL (1.6-2.3); Non-African American GFR(CKD) >90 (>60 ml/min/1.73 sqM); Potassium 4.5 mmol/L (3.5-5.1); Sodium 132 mmol/L (137-145)
[2021-11-06] MEDS ORDERED: HYDROcodone/APAP 5-325MG 1 EACH TAB PO PRN (13:08)
[2021-11-06] MEDS ORDERED: bisacodyL 5 MG TABLET.DR PO STA (13:09)
[2021-11-06] MEDS ORDERED: polyethylene glycoL 3350 17 GM POWD.PACK PO PRN (13:09)
[2021-11-06] MEDS: LIDOCAINE 5% PATCH TOPICAL SCH (13:25)
--- NOTE | 2021-11-06 14:11 | P.PN ---
Subjective Patient is 56-year-old male with history of hypertension, GERD, Chiari decompression surgery. He was admitted with progressively worsening bilateral lower extremity weakness, pain and numbness. MRI of the cervical thoracic and lumbar spine without any cord compression. Neurology evaluated, felt to be due to progressively worsening polyneuropathy, possibility of [place] Aquino's. Started on IVIG. Patient is status post 2 infusions of IVIG. Patient is ambulating in the room without any difficulties. Patient states that he has no chest pain or shortness of breath. However he states that he is not feeling well enough to go home. He cannot specify exact reason but he thinks that due to this infusions he is feeling tired. He also has some constipation. No new complaints at this time. Objective - Vital Signs Vital signs: Vital Signs Temp 98.2 F 11/06/21 11:26 Pulse 95 11/06/21 11:26 Resp 16 11/06/21 11:26 BP 132/78 11/06/21 11:26 Pulse Ox 97 11/06/21 11:26 FiO2 Intake & Output 11/05/21 11/06/21 11/06/21 18:59 06:59 18:59 Intake Total 476 2090 120 Balance 476 2090 120 Intake: Intake, IV Titration 900 Amount Sodium Chloride 0.9% 1, 900 000 ml @ 75 mls/hr IV . [id number] [facility] Rx#:[id number] Oral 476 1190 120 Other: Voiding Method Toilet Toilet # Voids 3 1 # Bowel Movements 1 - Exam Awake alert oriented 3, no acute distress Head and neck: Anicteric sclera, extraocular movements intact, no facial asymm etry, oropharyngeal mucosa is moist without any lesions, neck is supple without rigidity, no neck masses or neck vein distention Heart: Regular rhythm and rate, S1, S2; no murmurs rubs or gallops Lungs: Breath sounds present bilateral, no wheezing, rhonchi or crackles Abdomen: Bowel sounds present throughout, abdomen is soft, nontender, nondistended, no involuntary guarding, no hernias or organomegaly, no flank tenderness Extremities: 1+ mostly pedal l edema improving, no cyanosis, warm well perfused with palpable dorsalis pedis pulses bilateral and good capillary refill, without joint swelling or deformities Neurological: Diminished sensitivity to light touch in both feet, DTRs patellar are diminished, no ankle clonus; no motor weakness; he is ambulating in the room without any gait difficulties - Labs CBC & Chem 7: 11/05/21 06:31 11/06/21 09:42 Labs: Abnormal Lab Results - Last 24 Hours (Table) 11/06/21 Range/Units 09:42 Sodium 132 L (137-145) mmol/L Chloride 97 L (98-107) mmol/L Creatinine 0.65 L (0.66-1.25) mg/dL Glucose 214 H (74-99) mg/dL Assessment and Plan Assessment: #Bilateral lower extremity weakness and numbness -Neurology following, suspicion for immune polyneuropathy, GBS IVIG started 11/04/21, overall improvement and neurology discontinued IVIG -Neuro checks every 4 hours -Fall precautions -Pain management: Started on gabapentin by neurology -MRI cervical and thoracic spine revealed marked spinal curvature and upper thoracic spine and postoperative changes from Chiari decompression surgery, and unusual appearance of mid brain with 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 -MRI lumbar spine with and without contrast: No cord abnormality -Status post lumbar puncture 11/03: Normal cell count and protein -Inflammatory markers elevated with an ESR of 63 and CRP of 13 Per neurology, cleared for discharge home. Worked with physical therapy luis lepe in the room without difficulties. #Mild hyponatremia Improving, stable Nephrology following #Thrombocytosis, improved with IV fluid hydration -Likely secondary to dehydration, patient receiving gentle IV fluid hydration. -We will continue to monitor with repeat a.m. labs. #Lower extremity edema Obtain Doppler's Leukocytosis -Improved Hypertension - monitor vital signs and continue daily medication regimen with lisinopril Constipation Started on Dulcolax, Colace and MiraLAX Wean off pain medications DVT prophylaxis subcu heparin
--- NOTE | 2021-11-06 15:10 | P.PN ---
Subjective Progress Note Date: 11/06/21 I am seeing the patient for the first time and is accompanied by his father. According to the patient he stated that he had a sinus infection in August of this year and then in September around the third week he noticed he has pain in his feet pain in the shoulder region and the pain in the feet was ascending up all the way to the thigh with numbness in the feet as well as thumb pain. He denies any fever. He had cough. Denies of any skin rash. It seems that the patient got the 3 rounds of tapering dose of steroids as an outpatient he completed a regimen of amoxicillin as an outpatient and another regiment of azithromycin as an outpatient. He stated that since his been the hospital he's been feeling better. Patient had a lumbar puncture in our facility which was negative and the CSF protein was normal. Patient had MRI of the cervical thoracic and lumbar spine which was unremarkable. Today is last dose of IVIG. Please refer to Dr. Domínguez's note for further details. Objective - Vital Signs Vital signs: Vital Signs Temp 98.2 F 11/06/21 11:26 Pulse 95 11/06/21 11:26 Resp 16 11/06/21 11:26 BP 132/78 11/06/21 11:26 Pulse Ox 97 11/06/21 11:26 FiO2 Intake & Output 11/05/21 11/06/21 11/06/21 18:59 06:59 18:59 Intake Total 476 2090 120 Balance 476 2090 120 Intake: Intake, IV Titration 900 Amount Sodium Chloride 0.9% 1, 900 000 ml @ 75 mls/hr IV . [id number] [facility] Rx#:[id number] Oral 476 1190 120 Other: Voiding Method Toilet Toilet # Voids 3 1 # Bowel Movements 1 - Exam GENERAL: The patient is lying in bed and is not in acute distress. NEUROLOGICAL: Higher mental function: The patient is awake, alert, oriented to self, place and time. Patient is following commands. No aphasia and no neglect. Cranial nerves: The pupils are round, equal and reactive to light and accommodation. Visual perez are full to confrontation throughout. Extraocular movement is intact no nystagmus is noted. Facial sensation is normal to touch throughout. The facial strength is normal throughout. H Tongue is midline and moved [id number] without any difficulty. No dysarthria is noted. Shoulder shrug is normal bilaterally. Motor: The strength is left ankle dorsiflexion is 4-, right ankle dorsiflexion is 5-. Otherwise 5 over 5 throughout. Normal tone and bulk. Cerebellum: Normal finger to nose bilaterally. Sensation: Sensation is decreased to touch from tip of toes to distal ankles bilaterally. Reflexes (right/left): Brachioradialis is 3+. Otherwise 2+ throughout. - Labs CBC & Chem 7: 11/05/21 06:31 11/06/21 09:42 Labs: Abnormal Lab Results - Last 24 Hours (Table) 11/06/21 Range/Units 09:42 Sodium 132 L (137-145) mmol/L Chloride 97 L (98-107) mmol/L Creatinine 0.65 L (0.66-1.25) mg/dL Glucose 214 H (74-99) mg/dL Assessment and Plan Assessment: * New onset, 4 week history of progressive numbness and weakness of distal bilateral lower extremities, and pain in bilateral shoulder and thumb region. Examination reveals preserved deep tendon reflexes. Patient had upper respiratory infection prior to onset of these symptoms. Possible Parson[place] Solis Syndrome vs other inflammatory polyneuritis. Symptoms are not typical of Guillain-Aquino syndrome (since reflexes are normal and CSF protein is normal, no enhancement on Spinal MRI imaging). * History of cervical decompression surgery for Chiari malformation in 2013. Denies any injury or neck pain at this time. * History of herpes zoster (affecting right shoulder region) around May 2021 Plan: * Patient has received 3/4 dose of IVIG and today is last dose. He has noticed slight improvement, as he can feel the floor on bottom of the heel of the right foot. The left foot is still numb. No worsening of symptoms. * Continue Neurontin to 300 mg 3 times a day for neuropathic pain. * Recommend EMG with NCS of upper and lower as outpatient. * For leg swelling, recommend knee-high stockings. * Computed tomography scan of the head showed no acute intracranial process. There is ethmoid sinusitis that appears new compared to old exam. Recommend antibiotics for sinusitis. * Currently on opiates for pain and will defer management to his PCP. * MRI of the cervical spine with and without contrast revealed no acute findings. There are postoperative changes, unusual appearance of the patient's mid brain with inferior descent of the cerebellar tonsils again noted. No significant spinal stenosis. * MRI of the thoracic spine with and without contrast revealed marked spinal curvature in the upper thoracic spine convex left. No spinal stenosis. No abnormal cord signal. * MRI of lumbar spines with and without contrast revealed mild degenerative disc disease. There is scoliotic curvature, findings consistent with narrow reconversion. * Lumbar puncture revealed WBC count 1, RBC 2, glucose 73, protein 47. * Patient's ESR (low 60's) and CRP 13-->11. * Hemoglobin A1c 6.2, B12 634, folate 3.9, quantitative immunoglobulins are normal. Serum immunoelectrophoresis, protein electrophoresis normal. No monoclonal gammopathy. Sjogren's antibodies, JAMIE negative. Lyme titer negative, RPR negative. * Continue folate replacement. * Ordered CK level, aldolasel level, repeat ESR and CRP. * PT and OT are consulted. * Continue heparin 5000 units subcu every 12 hours for DVT prophylaxis. Doppler ultrasound of bilateral lower ex-20 negative for DVT. * Recommend patient to follow-up with Neuromuscular team as outpatient within 1- 2 weeks. The plan is discussed with patient and his father who is at bedside. Ross Braxton M.D. Neuro-Hospitalist Time with Patient: Less than 30
[2021-11-06] MEDS ORDERED: IMMUNE GLOBULIN (GAMMAGARD) 30 GM in EMPTY BAG 1 BAG IV ONE (18:00)
[2021-11-06] MEDS: CHOLECALCIFEROL 25 MCG (1000 IU) TABLET PO SCH (20:15)
[2021-11-06 23:52] LABS: C Reactive Protein 7.5 mg/dL (0.00-0.80)
[2021-11-07 06:46] LABS: African American GFR (CKD) >90 (>60 ml/min/1.73 sqM); Anion Gap 8 mmol/L; Blood Urea Nitrogen 10 mg/dL (9-20); Calcium 8.8 mg/dL (8.4-10.2); Carbon Dioxide 27 mmol/L (22-30); Chloride 99 mmol/L (98-107); Glucose 95 mg/dL (74-99); Magnesium 1.9 mg/dL (1.6-2.3); Non-African American GFR(CKD) >90 (>60 ml/min/1.73 sqM); Potassium 4.2 mmol/L (3.5-5.1); Sodium 134 mmol/L (137-145)
[2021-11-07] MEDS: DOCUSATE 100 MG CAP PO SCH (09:55)
[2021-11-07] MEDS: FOLIC ACID 1 MG TAB PO SCH (09:55)
[2021-11-07] MEDS: GABAPENTIN 300 MG CAP PO SCH (09:55)
[2021-11-07] MEDS: lisinopriL 10 MG TAB PO SCH (09:55)
[2021-11-07] MEDS: HEPARIN SODIUM,PORCINE/PF 5,000 UNIT/0.5 ML SYRINGE SQ SCH (09:55)
[2021-11-07] MEDS: LIDOCAINE 5% PATCH TOPICAL SCH (09:56)
--- NOTE | 2021-11-07 10:17 | P.PN ---
Subjective Progress Note Date: 11/07/21 The patient is seen at bedside and has received his last scheduled IVIG yesterday night and feels about the same yesterday compared to today. Denies worsening of his neurological condition. He feels better compared to his initial presentation. Objective - Vital Signs Vital signs: Vital Signs Temp 98.6 F 11/07/21 05:00 Pulse 95 11/07/21 05:00 Resp 20 11/07/21 05:00 BP 153/88 11/07/21 05:00 Pulse Ox 96 11/07/21 05:00 FiO2 Intake & Output 11/06/21 11/07/21 11/07/21 18:59 06:59 18:59 Intake Total 720 397.334 450 Balance 720 397.334 450 Intake: Intake, IV Titration 147.334 Amount Immune Globulin ( 147.334 Gammagard) 30 gm In Empty Bag 1 bag @ Per Protocol IV .Q0M ONE Rx#: [id number] Oral 720 250 450 Other: Voiding Method Toilet # Voids 2 - Exam GENERAL: The patient is lying in bed and is not in acute distress. INTEGUMENTARY: Has mild feet edema. NEUROLOGICAL: Higher mental function: The patient is awake, alert, oriented to self, place and time. Patient is following commands. No aphasia and no neglect. Cranial nerves: The pupils are round, equal and reactive to light and accommodation. Visual perez are full to confrontation throughout. Extraocular movement is intact no nystagmus is noted. Facial sensation is normal to touch throughout. The facial strength is normal throughout. H Tongue is midline and moved [id number] without any difficulty. No dysarthria is noted. Shoulder shrug is normal bilaterally. Motor: The strength is left ankle dorsiflexion is 4-, right ankle dorsiflexion is 5-. Otherwise 5 over 5 throughout. Normal tone and bulk. Cerebellum: Normal finger to nose bilaterally. Sensation: Sensation is decreased to touch from tip of toes to distal ankles bilaterally. Reflexes (right/left): Brachioradialis is 3+. Otherwise 2+ throughout. - Labs CBC & Chem 7: 11/05/21 06:31 11/07/21 05:27 Labs: Abnormal Lab Results - Last 24 Hours (Table) 11/06/21 11/06/21 11/06/21 Range/Units 09:42 09:42 09:42 ESR 83 H (0-20) mm/Hr Sodium 132 L (137-145) mmol/L Chloride 97 L (98-107) mmol/L Creatinine 0.65 L (0.66-1.25) mg/dL Glucose 214 H (74-99) mg/dL Creatine Kinase 24 L (35-257) U/L C-Reactive Protein 7.50 H (0.00-0.80) mg/dL 11/07/21 Range/Units 05:27 ESR (0-20) mm/Hr Sodium 134 L (137-145) mmol/L Chloride (98-107) mmol/L Creatinine (0.66-1.25) mg/dL Glucose (74-99) mg/dL Creatine Kinase (35-257) U/L C-Reactive Protein (0.00-0.80) mg/dL Assessment and Plan Assessment: * New onset, 4 week history of progressive numbness and weakness of distal bilateral lower extremities, and pain in bilateral shoulder and thumb region. Examination reveals preserved deep tendon reflexes. Patient had upper resp iratory infection prior to onset of these symptoms. Possible Parsonage Solis Syndrome vs other inflammatory polyneuritis. Symptoms are not typical of Guillain-Aquino syndrome (since reflexes are normal and CSF protein is normal, no enhancement on Spinal MRI imaging). * History of cervical decompression surgery for Chiari malformation in 2013. Denies any injury or neck pain at this time. * History of herpes zoster (affecting right shoulder region) around May 2021 Plan: * Patient has completed 4/4 dose of IVIG. He has noticed slight improvement, as he can feel the floor on bottom of the heel of the right foot. The left foot is still numb. No worsening of symptoms. * Continue Neurontin to 300 mg 3 times a day for neuropathic pain. * Recommend EMG with NCS of upper and lower as outpatient. * For leg swelling, recommend knee-high stockings. * Computed tomography scan of the head showed no acute intracranial process. There is ethmoid sinusitis that appears new compared to old exam. Recommend antibiotics for sinusitis. * Currently on opiates for pain and will defer management to his PCP. * MRI of the cervical spine with and without contrast revealed no acute findings. There are postoperative changes, unusual appearance of the patient's mid brain with inferior descent of the cerebellar tonsils again noted. No significant spinal stenosis. * MRI of the thoracic spine with and without contrast revealed marked spinal curvature in the upper thoracic spine convex left. No spinal stenosis. No abnormal cord signal. * MRI of lumbar spines with and without contrast revealed mild degenerative disc disease. There is scoliotic curvature, findings consistent with narrow reconversion. * Lumbar puncture revealed WBC count 1, RBC 2, glucose 73, protein 47. * Patient's ESR (low 60's)-->83 and CRP 13-->11-->7.50 * Hemoglobin A1c 6.2, B12 634, folate 3.9, quantitative immunoglobulins are normal. Serum immunoelectrophoresis, protein electrophoresis normal. No monoclonal gammopathy. Sjogren's antibodies, JAMIE negative. Lyme titer negative, RPR negative. * Continue folate replacement. * Ordered CK level:24. * PT and OT are consulted. * Continue heparin 5000 units subcu every 12 hours for DVT prophylaxis. Doppler ultrasound of bilateral lower ex-20 negative for DVT. * Recommend patient to follow-up with Neuromuscular team as outpatient within 1- 2 weeks. There is no further neurological work-up. Possible patient can benefit from rehab if willing to participate. patient is clear for discharge. The plan is discussed with patient and his nurse. Ross Braxton M.D. Neuro-Hospitalist Time with Patient: Less than 30
--- NOTE | 2021-11-07 10:30 | P.PN ---
Subjective Patient is seen in follow-up for hyponatremia. Sodium level 134 today. Left foot pain better. Has been ambulating. Oral intake fair. No vomiting or diarrhea. Vital signs are stable. General: Awake. No acute distress. HEENT: Head exam is unremarkable. LUNGS: Breath sounds decreased. HEART: Rate and Rhythm are regular. ABDOMEN: Soft, no distention. EXTREMITITES: No edema. Does have swelling in the feet. Objective - Vital Signs Vital signs: Vital Signs Temp 98.6 F 11/07/21 05:00 Pulse 95 11/07/21 05:00 Resp 20 11/07/21 05:00 BP 153/88 11/07/21 05:00 Pulse Ox 96 11/07/21 05:00 FiO2 Intake & Output 11/06/21 11/07/21 11/07/21 18:59 06:59 18:59 Intake Total 720 397.334 450 Balance 720 397.334 450 Intake: Intake, IV Titration 147.334 Amount Immune Globulin ( 147.334 Gammagard) 30 gm In Empty Bag 1 bag @ Per Protocol IV .Q0M ONE Rx#: [id number] Oral 720 250 450 Other: Voiding Method Toilet # Voids 2 - Labs CBC & Chem 7: 11/05/21 06:31 11/07/21 05:27 Labs: Abnormal Lab Results - Last 24 Hours (Table) 11/06/21 11/06/21 11/06/21 Range/Units 09:42 09:42 09:42 ESR 83 H (0-20) mm/Hr Sodium 132 L (137-145) mmol/L Chloride 97 L (98-107) mmol/L Creatinine 0.65 L (0.66-1.25) mg/dL Glucose 214 H (74-99) mg/dL Creatine Kinase 24 L (35-257) U/L C-Reactive Protein 7.50 H (0.00-0.80) mg/dL 11/07/21 Range/Units 05:27 ESR (0-20) mm/Hr Sodium 134 L (137-145) mmol/L Chloride (98-107) mmol/L Creatinine (0.66-1.25) mg/dL Glucose (74-99) mg/dL Creatine Kinase (35-257) U/L C-Reactive Protein (0.00-0.80) mg/dL Assessment and Plan Plan: Assessment: 1. Hypovolemic hyponatremia improved with IV hydration. Urine sodium 87 and urine osmolality 360. Received NSAIDs for pain. Sodium level 134 today. 2. Weakness of lower extremities possibly inflammatory polyneuritis. Neurology following. 3. Benign hypertension. Stable. Plan: Off IV fluids. Avoid NSAIDs. 1500 mL fluid restriction. Encouraged oral intake. Check TSH.
--- NOTE | 2021-11-07 12:09 | P.PN ---
Subjective Patient is 56-year-old male with history of hypertension, GERD, Chiari decompression surgery. He was admitted with progressively worsening bilateral lower extremity weakness, pain and numbness. MRI of the cervical thoracic and lumbar spine without any cord compression. Neurology evaluated, felt to be due to progressively worsening polyneuropathy, possibility of Wilburn Aquino's. Started on IVIG. No complaints in this time. Ambulating in the room freely pain improved. Denies any abdominal pain nausea vomiting. Feeling overall improved and wants to go home today. Objective - Vital Signs Vital signs: Vital Signs Temp 98.6 F 11/07/21 05:00 Pulse 95 11/07/21 05:00 Resp 20 11/07/21 05:00 BP 153/88 11/07/21 05:00 Pulse Ox 96 11/07/21 05:00 FiO2 Intake & Output 11/06/21 11/07/21 11/07/21 18:59 06:59 18:59 Intake Total 720 397.334 450 Balance 720 397.334 450 Intake: Intake, IV Titration 147.334 Amount Immune Globulin ( 147.334 Gammagard) 30 gm In Empty Bag 1 bag @ Per Protocol IV .Q0M ONE Rx#: [id number] Oral 720 250 450 Other: Voiding Method Toilet Toilet # Voids 2 - Exam Awake alert oriented 3, no acute distress Head and neck: Anicteric sclera, extraocular movements intact, no facial asymm etry, oropharyngeal mucosa is moist without any lesions, neck is supple without rigidity, no neck masses or neck vein distention Heart: Regular rhythm and rate, S1, S2; no murmurs rubs or gallops Lungs: Breath sounds present bilateral, no wheezing, rhonchi or crackles Abdomen: Bowel sounds present throughout, abdomen is soft, nontender, nondistended, no involuntary guarding, no hernias or organomegaly, no flank tenderness Extremities: 1+ mostly pedal l edema improving, no cyanosis, warm well perfused with palpable dorsalis pedis pulses bilateral and good capillary refill, without joint swelling or deformities Neurological: Diminished sensitivity to light touch in both feet, DTRs patellar are diminished, no ankle clonus; no motor weakness; he is ambulating in the room without any gait difficulties - Labs CBC & Chem 7: 11/05/21 06:31 11/07/21 05:27 Labs: Abnormal Lab Results - Last 24 Hours (Table) 11/06/21 11/06/21 11/07/21 Range/Units 09:42 09:42 05:27 ESR 83 H (0-20) mm/Hr Sodium 134 L (137-145) mmol/L Creatine Kinase 24 L (35-257) U/L C-Reactive Protein 7.50 H (0.00-0.80) mg/dL Assessment and Plan Assessment: #Bilateral lower extremity weakness and numbness -Neurology following, suspicion for immune polyneuropathy, GBS IVIG started 11/04/21, overall improvement and neurology discontinued IVIG -Neuro checks every 4 hours -Fall precautions -Pain management: Started on gabapentin by neurology -MRI cervical and thoracic spine revealed marked spinal curvature and upper th oracic spine and postoperative changes from Chiari decompression surgery, and unusual appearance of mid brain with 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 -MRI lumbar spine with and without contrast: No cord abnormality -Status post lumbar puncture 11/03: Normal cell count and protein -Inflammatory markers elevated with an ESR of 63 and CRP of 13 Per neurology, cleared for discharge home. Worked with physical therapy ambulating in the room without difficulties. #Mild hyponatremia Improving, stable Nephrology following #Thrombocytosis, improved with IV fluid hydration -Likely secondary to dehydration, patient receiving gentle IV fluid hydration. -We will continue to monitor with repeat a.m. labs. #Lower extremity edema Obtain Doppler's Leukocytosis -Improved Hypertension - monitor vital signs and continue daily medication regimen with lisinopril Constipation Started on Dulcolax, Colace and MiraLAX Wean off pain medications DVT prophylaxis subcu heparin Disposition: Likely home today. Spoke with neurology, they cleared the patient for discharge home today.
[2021-11-07 13:10] LABS: Hypochromasia Slight; MCH 27.1 pg (25.0-35.0); MCHC 31.5 g/dL (31.0-37.0); MCV 86.1 fL (80.0-100.0); Platelet Count 530 k/uL (150-450); RBC 4.06 m/uL (4.30-5.90); RDW 13.8 % (11.5-15.5); WBC 8.4 k/uL (3.8-10.6)
[2021-11-07 13:28] VITALS: BP 144/81; PULSE 99; RESP 16; TEMP 97.9
--- NOTE | 2021-11-07 13:57 | P.DS ---
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 Syndrome 11/04/21 13:20 Consult Physician Routine Consulting Provider: Page Navarro Consult Reason/Comments: hyponatremia Do you want consulting provider notified?: Yes Primary care physician: Gino Rojas MD Hospital Course: Date of admission: 11/02/21 Date of discharge: 10/2121 Disposition: Discharged home with a plan to follow up with neurology, nephrology and primary care physician; discussed with neurology and the day of discharge and they cleared the patient to be discharged home with follow-up in the office Discharge diagnoses Peripheral neuropathy Bilateral leg weakness Hypovolemic hyponatremia Hypertension [employer] Neurology Nephrology Procedures: IVIG 3 doses MRI of the brain, cervical, thoracic and lumbar spine Reason for admission Patient is a very pleasant 56-year-old male with a past medical history of hypertension, GERD, and Chiari decompression surgery. Patient presented to the emergency department with the chief complaint of bilateral leg pain and weakness. Patient reports this is pending progressively going on over the past month and has significantly worsened over the past 2 weeks. Patient reports he is now experiencing complete numbness of bilateral feet accompanied by pain and tingling traveling up his legs. Patient denies any previous episodes similar to this in the past. He denies having any recent fevers or recent infections. He denies having any falls or injuries. Patient also denies having any back pain, chest pain, palpitations, shortness of breath, or experiencing any other numbness/tingling/weakness throughout any other part of his body. Patient reports this numbness/pain/tingling extends up into his thighs. He denies having any involuntary loss of bowel or bladder. Patient underwent full evaluation in the emergency department, CT lumbar spine negative for acute process. Labs completed. CBC revealing leukocytosis with WBC count of 12.4 and thrombocytosis with platelet count of 698. BMP revealing mild hyponatremia with sodium of 1:30 and hypochloremia with chloride of 97. Inflammatory markers elevated with CRP 13 an ESR of 63. Patient admitted under our services with consultation to neurology. Hospital -Evaluated by neurology, LP: No significant abnormalities IVIG started 11/04/21, overall improvement and neurology discontinued IVIG Cleared for discharge home -Pain management: Started on gabapentin by neurology -MRI cervical and thoracic spine revealed marked spinal curvature and upper thoracic spine and postoperative changes from Chiari decompression surgery, and unusual appearance of mid brain with 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 -MRI lumbar spine with and without contrast: No cord abnormality -Status post lumbar puncture 11/03: Normal cell count and protein -Inflammatory markers elevated with an ESR of 63 and CRP of 13 Per neurology, cleared for discharge home. Worked with physical therapy ambulating in the room without difficulties. #Mild hyponatremia Improved, stable Nephrology following: Acute to go home and follow-up in the office #Lower extremity edema Dopplers: Negative for DVT Leukocytosis Resolved Hypertension - monitor vital signs and continue daily medication regimen with lisinopril See my daily progress note for the physical examination. This patient was undulating feeling the room did not have any particular complaints or concerns and was comfortable being discharged home with follow-up as above. Patient Condition at Discharge: Fair Plan - Discharge Summary Discharge Rx Participant: No New Discharge Prescriptions: Continue lisinopriL [Prinivil] 10 mg PO DAILY Cholecalciferol (Vitamin D3) [Vitamin D3 (3000 Iu)] 75 mcg PO HS Discharge Medication List lisinopriL [Prinivil] 10 mg PO DAILY 07/08/15 [History] Cholecalciferol (Vitamin D3) [Vitamin D3 (3000 Iu)] 75 mcg PO HS 11/02/21 [History] Follow up Appointment(s)/Referral(s): Ross Braxton MD [STAFF PHYSICIAN] - 1 Week Gino Rojas MD [Primary Care Provider] - 1-2 days Roberto Victoria DO [STAFF PHYSICIAN] - 1 Week Discharge Disposition: HOME SELF-CARE
[2021-11-09 11:54] LABS: IgG - CSF 1.7 mg/dL (0.0 - 3.4); Immunoglobulin G 840 mg/dL (700 - 1600)
== END 2021-11-07 16:14 | disposition home or self-care (01) | DRG 74 ==
LOC: EC 03:05 → 6NMEDSUR 06:47 → OBSVTOIN 18:06 → 5NMEDONC 11-05 21:51
PROVIDERS: ADMIT Internal Medicine; ATTEND Internal Medicine
PROC: 009U3ZX Drainage of Spinal Canal, Percutaneous Approach, Diagnostic (ICD-10-PCS; principal; 2021-11-03 11:30)
PROC: 30233S1 Transfusion of Nonautologous Globulin into Peripheral Vein, Percutaneous Approach (ICD-10-PCS; 2021-11-04)
DX: G62.9 Polyneuropathy, unspecified (principal); E87.1 Hypo-osmolality and hyponatremia; M54.50 Low back pain, unspecified; M79.605 Pain in left leg; D75.839 Thrombocytosis, unspecified; E55.9 Vitamin D deficiency, unspecified; E86.0 Dehydration; E86.1 Hypovolemia; E87.8 Other disorders of electrolyte and fluid balance, not elsewhere classified; I10 Essential (primary) hypertension; K59.03 Drug induced constipation; T40.605A Adverse effect of unspecified narcotics, initial encounter; Z79.899 Other long term (current) drug therapy; Z80.8 Family history of malignant neoplasm of other organs or systems; K21.9 Gastro-esophageal reflux disease without esophagitis; R60.0 Localized edema; J32.2 Chronic ethmoidal sinusitis
CPT/HCPCS: 36415; 62270; 70450; 72131; 72156; 72157; 72158; 80048; 80053; 80320; 82040; 82042; 82085; 82550; 82607; 82746; 82784; 82945; 83036; 83735; 83873; 83916; 83930; 83935; 84157; 84165; 84300; 85025; 85027; 85652; 86038; 86140; 86235; 86334; 86618; 86780; 87252; 87801; 89050; 93970; 96361; 96372; 96374; 96375; 96376; 99285

== ENCOUNTER 2021-11-25 17:15 | Emergency (ER) | payer OTHER ==
[2021-11-25 17:29] VITALS: TEMP 99.6
[2021-11-25] MEDS ORDERED: SODIUM CHLORIDE 0.9% 1,000 ML IV STA (17:48)
[2021-11-25] MEDS ORDERED: ONDANSETRON 4 MG/2 ML VIAL IVP STA (17:48)
[2021-11-25] MEDS ORDERED: KETOROLAC 15 MG/ML 1 ML VIAL IVP STA (17:48)
[2021-11-25] MEDS ORDERED: HYDROmorphone 1 MG/ML 1 ML SYRINGE IVP STA (17:48)
--- NOTE | 2021-11-25 17:52 | ED ---
General Adult HPI - General Chief complaint: Extremity Problem,Nontraumatic Stated complaint: Neuropathy in Hands and Feet Time Seen by Provider: 11/25/21 17:37 Source: patient, RN notes reviewed Mode of arrival: ambulatory Limitations: no limitations - History of Present Illness Initial comments: This is a pleasant 56-year-old male who was seen and admitted here on November 02 and subsequently discharged on November 07. Patient states he was eventually diagnosed with neuropathy after being admitted for bilateral leg pain and weakness. 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 Patient did see neurology, Dr. Braxton and received 3 doses of intravenous immunoglobulin. Patient was started on Lyrica by his family physician. Patient states that today the pain and numbness has progressed from his bilateral feet and legs to both hands. States it seems to be getting worse. Patient is not taking anything else other than the Lyrica for neuropathy. No headache, no fever or chills, no changes in vision or hearing, no sore throat or difficulty with speech, no neck pain, no chest pain or shortness of breath, no abdominal pain, no nausea or vomiting, no changes in urination or bowel movem ents, no extremity pain, no skin rashes or lesions. Patient states she is having some difficulty walking due to the leg weakness. Patient denying any focal weakness. No unilateral weakness. No vision or hearing disturbance. No difficulty with speech. Patient had an MRI and a lumbar puncture done when he was here. Patient has had his follow-up appointment with Dr. Braxton and is scheduled to see him again in December. Patient states he is supposed to have nerve mapping done within the next few weeks - Related Data Home Medications Medication Instructions Recorded Confirmed lisinopriL [Prinivil] 10 mg PO DAILY 07/08/15 11/02/21 Cholecalciferol (Vitamin D3) 75 mcg PO HS 11/02/21 11/02/21 [Vitamin D3 (3000 Iu)] Previous Rx's Medication Instructions Recorded Doxycycline [Vibramycin] 100 mg PO BID 7 Days #14 capsule 11/07/21 HYDROcodone/APAP 5-325MG [Neola 1 tab PO Q6HR PRN 3 Days #12 tab 11/25/21 5-325] Allergies Allergy/AdvReac Type Severity Reaction Status Date / Time No Known Allergies Allergy Verified 11/25/21 17:29 Review of Systems ROS Statement: Those systems with pertinent positive or pertinent negative responses have been documented in the HPI. ROS Other: All systems not noted in ROS Statement are negative. Past Medical History Past Medical History: GERD/Reflux, Hypertension Additional Past Medical History / Comment(s): acute pancreatitis History of Any Multi-Drug Resistant Organisms: None Reported Additional Past Surgical History / Comment(s): chiari decompression surgery Past Anesthesia/Blood Transfusion Reactions: No Reported Reaction Past Psychological History: No Psychological Hx Reported Smoking Status: Never smoker Past Alcohol Use History: None Reported Past Drug Use History: None Reported - Past Family History Mother Family Medical History: Cancer Additional Family Medical History / Comment(s): thyroid cancer Father Family Medical History: AFIB General Exam - General Exam Comments Initial Comments: Patient in mild distress. Does not appear to be ill or toxic. Vital signs reviewed Limitations: no limitations General appearance: alert, in distress Head exam: Present: atraumatic, normocephalic, normal inspection Eye exam: Present: normal appearance, PERRL, EOMI. Absent: scleral icterus, conjunctival injection, periorbital swelling ENT exam: Present: normal exam, mucous membranes moist Neck exam: Present: normal inspection, full ROM. Absent: tenderness, meningismus, lymphadenopathy Respiratory exam: Present: normal lung sounds bilaterally. Absent: respiratory distress, wheezes, rales, rhonchi, stridor Cardiovascular Exam: Present: regular rate, normal rhythm, normal heart sounds. Absent: systolic murmur, diastolic murmur, rubs, gallop, clicks GI/Abdominal exam: Present: soft, normal bowel sounds. Absent: distended, tenderness, guarding, rebound, rigid Extremities exam: Present: normal inspection, full ROM, normal capillary refill. Absent: tenderness, pedal edema, joint swelling, calf tenderness Back exam: Present: normal inspection Neurological exam: Present: alert, oriented X3, CN II-XII intact Expanded Neurological exam: Present: other (Great toe extensor strength is 3 out of 5 on the left and 4 out of 5 on the right. There is no clonus.) Patient oriented to: Present: person, place, time Speech: Present: fluid speech Cranial nerves: EOM's Intact: Normal Cerebellar function: Heel to Marks: Normal Upper motor neuron: Catrachito Neglect: Normal, Sensory Extinction: Normal Sensory exam: Upper Extremity Light Touch: Normal, Upper Extremity Pin Prick: Normal, Lower Extremity Light Touch: Normal, Lower Extremity Pin Prick: Normal Motor strength exam: RUE: 5, LUE: 5, RLE: 5, LLE: 4 DTR: Bicep (R): 2+, Bicep (L): 2+, Brachioradialis (R): 2+, Brachioradialis (L): 2+, Patellar (R): 2+, Patellar (L): 2+, Achilles Tendon (R): 1+, Achilles Tendon (L): 1+ Eye Response: (4) open spontaneously Motor Response: (6) obeys commands Verbal Response: (5) oriented [place] Total: 15 Psychiatric exam: Present: normal affect, normal mood Skin exam: Present: warm, dry, intact, normal color. Absent: rash Course Vital Signs 11/25/21 11/25/21 11/25/21 17:27 17:58 19:07 Temperature 99.6 F Pulse Rate 108 H 104 H 94 Respiratory 22 18 18 Rate Blood Pressure 128/75 135/90 159/87 O2 Sat by Pulse 98 100 100 Oximetry - Reevaluation(s) Reevaluation #1: 11/25/21 20:43 Follow-up with your regular physician as directed. Return to the ER immediately if any symptoms worsen, new symptoms arise, or any other problems develop. Medical Decision Making - Medical Decision Making Patient has progressive symptoms of bilateral leg weakness and numbness. Patient was seen here and worked up for [place]bra[place] syndrome. Patient saw neurology. Patient now has similar symptoms progressing to bilateral hands. Complaining of pain to both hands which is really not exacerbated by anything or alleviated by anything. Patient is on Lyrica with no relief. We'll discuss with neurology. Case was discussed in detail with the on-call neurologist, Dr. Braxton-- who had seen the patient previously. He states there is nothing else to do emergently. Patient needs an EMG. He states the patient can follow-up with him in the office. We'll control the patient's pain until follow-up. Patient given a short course of Neola. Neurologist states that the patient has a form of demyelinating process. Next up for the patient is obtained EMGs of both the upper and lower extremities which the patient actually has ordered. He agreed to see the patient in the office. Patient to call Saturday morning. Patient was in no distress at discharge. Alert and oriented 4. No focal deficits. Plan discussed with the patient. Discussed in detail. Patient concurs with this plan. I did offer admission to the patient which the patient deferred. Patient was told to return to the ER for any signs or symptoms worsen. Told to return immediately if any other problems arise. All questions answered. Treatment plan discussed. Patient in agreement Every effort has been made to ensure accuracy of this dictation. However, due to the limitations of electronic medical records and dictation devices, errors in charting still occur. Visual Display Manager Dr. Watson - Lab Data Result diagrams: 11/25/21 18:08 11/25/21 19:08 Lab Results 11/25/21 11/25/21 11/25/21 Range/Units 18:08 18:14 19:08 WBC 10.7 H (3.8-10.6) k/uL RBC 3.73 L (4.30-5.90) m/uL Hgb 9.7 L (13.0-17.5) gm/dL Hct 30.3 L (39.0-53.0) % MCV 81.3 (80.0-100.0) fL MCH 25.9 (25.0-35.0) pg MCHC 31.9 (31.0-37.0) g/dL RDW 15.6 H (11.5-15.5) % Plt Count 805 H (150-450) k/uL MPV 6.9 Neutrophils % 82 % Lymphocytes % 6 % Monocytes % 5 % Eosinophils % 5 % Basophils % 1 % Neutrophils # 8.8 H (1.3-7.7) k/uL Lymphocytes # 0.6 L (1.0-4.8) k/uL Monocytes # 0.5 (0-1.0) k/uL Eosinophils # 0.5 (0-0.7) k/uL Basophils # 0.1 (0-0.2) k/uL Hypochromasia Slight Poikilocytosis Slight ESR Cancelled Sodium 126 L (137-145) mmol/L Potassium 4.0 (3.5-5.1) mmol/L Chloride 94 L (98-107) mmol/L Carbon Dioxide 26 (22-30) mmol/L Anion Gap 6 mmol/L BUN 18 (9-20) mg/dL Creatinine 0.80 (0.66-1.25) mg/dL Est GFR (CKD-EPI)AfAm >90 (>60 ml/min/1.73 sqM) Est GFR (CKD-EPI)NonAf >90 (>60 ml/min/1.73 sqM) Glucose 107 H (74-99) mg/dL POC Glucose (mg/dL) 122 H (70-110) mg/dL POC Glu Case Packer ID Joseph Wyman Calcium 7.5 L (8.4-10.2) mg/dL Total Bilirubin 0.2 (0.2-1.3) mg/dL AST 49 (17-59) U/L ALT 60 H (4-49) U/L Alkaline Phosphatase 52 (38-126) U/L C-Reactive Protein 16.6 H (<1.0) mg/dL Total Protein 5.5 L (6.3-8.2) g/dL Albumin 2.6 L (3.5-5.0) g/dL Disposition Clinical Impression: Peripheral neuropathy Narrative: Peripheral neuropathy involving both upper and lower extremities. Disposition: HOME SELF-CARE Condition: Stable Additional Instructions: Follow-up with a neurologist as discussed. Follow-up with your regular physician as directed. Return to the ER immediately if any symptoms worsen, new symptoms arise, or any other problems develop. Prescriptions: HYDROcodone/APAP 5-325MG [Neola 5-325] 1 tab PO Q6HR PRN 3 Days #12 tab PRN Reason: Pain Is patient prescribed a controlled substance at d/c from ED?: No Referrals: Ross Braxton MD [STAFF PHYSICIAN] - 11/27/21 Time of Disposition: 20:41
[2021-11-25 18:16] LABS: Glucose,Whole Blood 122 mg/dL (70-110)
[2021-11-25 18:24] LABS: Basophils # (A) 0.1 k/uL (0-0.2); Basophils % (A) 1 %; Eosinophils # (A) 0.5 k/uL (0-0.7); Eosinophils % (A) 5 %; HCT 30.3 % (39.0-53.0); HGB 9.7 gm/dL (13.0-17.5); Hypochromasia Slight; Lymphocytes # (A) 0.6 k/uL (1.0-4.8); Lymphocytes % (A) 6 %; MCH 25.9 pg (25.0-35.0); MCHC 31.9 g/dL (31.0-37.0); MCV 81.3 fL (80.0-100.0); Mean Platelet Volume 6.9; Monocytes # (A) 0.5 k/uL (0-1.0); Monocytes % (A) 5 %; Neutrophils # (A) 8.8 k/uL (1.3-7.7); Neutrophils % (A) 82 %; Platelet Count 805 k/uL (150-450); Poikilocytosis Slight; RBC 3.73 m/uL (4.30-5.90); RDW 15.6 % (11.5-15.5); WBC 10.7 k/uL (3.8-10.6)
[2021-11-25 19:34] LABS: ALT 60 U/L (4-49); AST 49 U/L (17-59); African American GFR (CKD) >90 (>60 ml/min/1.73 sqM); Albumin 2.6 g/dL (3.5-5.0); Alkaline Phosphatase 52 U/L (38-126); Anion Gap 6 mmol/L; Blood Urea Nitrogen 18 mg/dL (9-20); Calcium 7.5 mg/dL (8.4-10.2); Carbon Dioxide 26 mmol/L (22-30); Chloride 94 mmol/L (98-107); Glucose 107 mg/dL (74-99); Non-African American GFR(CKD) >90 (>60 ml/min/1.73 sqM); Sodium 126 mmol/L (137-145); Total Bilirubin 0.2 mg/dL (0.2-1.3); Total Protein 5.5 g/dL (6.3-8.2)
[2021-11-25 19:55] LABS: C Reactive Protein 16.6 mg/dL (<1.0)
[2021-11-25] MEDS ORDERED: ACET/COD 300 MG/30 MG STARTER PACK 6 TAB BTL PO STA (20:40)
[2021-11-25 20:52] VITALS: BP 142/94; PULSE 97; RESP 16
== END 2021-11-25 20:52 | disposition home or self-care (01) ==
LOC: EC 17:15
DX: G90.09 Other idiopathic peripheral autonomic neuropathy (principal); I10 Essential (primary) hypertension
CPT/HCPCS: 36415; 80053; 85652; 85025; 86140; 99284; 96375; 96361; 96374; J2405; J1170; J1885

== ENCOUNTER 2022-09-04 09:18 | Emergency (ER) | payer OTHER ==
[2022-09-04 09:38] VITALS: TEMP 97.1
[2022-09-04] MEDS ORDERED: methylPREDNISolone SOD SUCCI 125 MG/2 ML VIAL IV STA (09:49)
[2022-09-04 10:12] LABS: Basophils % (A) 0 %; Eosinophils # (A) 0.1 k/uL (0-0.7); Eosinophils % (A) 2 %; HCT 39.1 % (39.0-53.0); HGB 12.7 gm/dL (13.0-17.5); Lymphocytes # (A) 1.2 k/uL (1.0-4.8); Lymphocytes % (A) 23 %; MCH 27.3 pg (25.0-35.0); MCHC 32.6 g/dL (31.0-37.0); Mean Platelet Volume 8.4; Monocytes # (A) 0.4 k/uL (0-1.0); Monocytes % (A) 7 %; Neutrophils # (A) 3.4 k/uL (1.3-7.7); Neutrophils % (A) 65 %; Platelet Count 278 k/uL (150-450); RBC 4.65 m/uL (4.30-5.90); RDW 14.7 % (11.5-15.5); WBC 5.2 k/uL (3.8-10.6)
[2022-09-04 10:24] LABS: Albumin 4.3 g/dL (3.5-5.0); Calcium 9.4 mg/dL (8.4-10.2); Magnesium 2.2 mg/dL (1.6-2.3); Potassium 3.7 mmol/L (3.5-5.1); Total Bilirubin 0.5 mg/dL (0.2-1.3); Total Protein 7.4 g/dL (6.3-8.2)
--- NOTE | 2022-09-04 10:30 | XR ---
EXAMINATION TYPE: XR chest 2V DATE OF EXAM: 09/04/2022 COMPARISON: Chest CT March 26, 2012 HISTORY: Difficulty in breathing. TECHNIQUE: Frontal and lateral views of the chest are obtained. FINDINGS: There is no suspicious focal air space opacity, pleural effusion, or pneumothorax seen. T he cardiac silhouette size is stable and within normal limits. Levoconvex scoliosis centered in the u pper to mid thoracic spine is redemonstrated. IMPRESSION: No acute pulmonary process.
[2022-09-04 10:31] LABS: Partial Thromboplastin Time 23.9 sec (22.0-30.0); Prothrombin Time 10.1 sec (9.0-12.0)
[2022-09-04] MEDS ORDERED: SODIUM CHLORIDE 0.9% 500 ML 500 ML IV ONE (10:42)
--- NOTE | 2022-09-04 10:46 | ED ---
General Adult HPI - General Chief complaint: Shortness of Breath Stated complaint: NUVIA Time Seen by Provider: 09/04/22 09:31 Source: patient, EMS, RN notes reviewed Mode of arrival: EMS Limitations: no limitations - History of Present Illness Initial comments: 57 show male presents emergency Department with chief complaint of shortness of breath. Patient states she's been present for about the last week or 2. Patient states that has not gotten any better. He has no history of asthma or COPD other than childhood asthma. Patient states she does not require use of inhaler normal basis. Patient states initial dosages ALLERGIES but again has not improved. Patient reports no fevers. 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 Patient states most of symptoms have improved or resolved. Patient has no history of CHF. Patient states she has increased nasal congestion, productive cough, notable wheezing patient did receive DuoNeb treatment as he was transferred from urgent care to the emergency Department via EMS. - Related Data Home Medications Medication Instructions Recorded Confirmed lisinopriL [Prinivil] 10 mg PO DAILY 07/08/15 09/04/22 Cholecalciferol [Vitamin D3 (125 125 mcg PO DAILY 09/04/22 09/04/22 Mcg = 5000 Iu)] Ferrous Sulfate [Feosol] 325 mg PO DAILY 09/04/22 09/04/22 Folic Acid 1 mg PO DAILY 09/04/22 09/04/22 Pregabalin [Lyrica] 150 mg PO BID 09/04/22 09/04/22 Previous Rx's Medication Instructions Recorded Albuterol Inhaler [Ventolin Hfa 1 - 2 puff INHALATION Q6H PRN #1 09/04/22 Inhaler] each Azithromycin [Zithromax Z Pack] 0 tab PO DIRECTED #6 tab 09/04/22 predniSONE 50 mg PO DAILY #5 tab 09/04/22 Allergies Allergy/AdvReac Type Severity Reaction Status Date / Time No Known Allergies Allergy Verified 09/04/22 11:56 Review of Systems ROS Statement: Those systems with pertinent positive or pertinent negative responses have been documented in the HPI. ROS Other: All systems not noted in ROS Statement are negative. Past Medical History Past Medical History: GERD/Reflux, Hypertension Additional Past Medical History / Comment(s): acute pancreatitis, shingles 2021, [place] in September 2021 History of Any Multi-Drug Resistant Organisms: None Reported Additional Past Surgical History / Comment(s): chiari decompression surgery Past Anesthesia/Blood Transfusion Reactions: No Reported Reaction Past Psychological History: No Psychological Hx Reported Smoking Status: Never smoker Past Alcohol Use History: None Reported Past Drug Use History: None Reported - Past Family History Mother Family Medical History: Cancer Additional Family Medical History / Comment(s): thyroid cancer Father Family Medical History: AFIB General Exam Limitations: no limitations General appearance: alert, in no apparent distress Head exam: Present: atraumatic, normocephalic, normal inspection Eye exam: Present: normal appearance, PERRL, EOMI. Absent: scleral icterus, conjunctival injection, periorbital swelling ENT exam: Present: normal exam, normal oropharynx, mucous membranes moist Neck exam: Present: normal inspection, full ROM. Absent: tenderness, meningismus, lymphadenopathy Respiratory exam: Present: respiratory distress, wheezes. Absent: normal lung sounds bilaterally, rales, rhonchi, stridor Cardiovascular Exam: Present: regular rate, normal rhythm, normal heart sounds. Absent: systolic murmur, diastolic murmur, rubs, gallop, clicks GI/Abdominal exam: Present: soft, normal bowel sounds. Absent: distended, tenderness, guarding, rebound, rigid Extremities exam: Absent: pedal edema Course Vital Signs 09/04/22 09/04/22 09/04/22 09:33 09:35 11:07 Temperature 97.1 F L Pulse Rate 99 87 Respiratory 22 22 18 Rate Blood Pressure 138/89 125/84 O2 Sat by Pulse 100 100 Oximetry 09/04/22 09/04/22 11:51 12:04 Temperature Pulse Rate 81 87 Respiratory Rate Blood Pressure O2 Sat by Pulse Oximetry EKG Findings - EKG Comments: EKG Findings:: EKG performed at 10:34 sinus rhythm rate of 87 PA 144 QRS 106 QT / QTC 356/400 - EKG Results: EKG: interpreted by ERMD Procedures - [place] Protocol (Time Out) Nurse: Jacklyn Ibarra Medical Decision Making - Medical Decision Making Was pt. sent in by a medical professional or institution (, PA, TRAILER ASSEMBLER, urgent care, hospital, or usp...) When possible be specific @ -Urgent care sent in for evaluation of dyspnea Did you speak to anyone other than the patient for history (EMS, parent, family, police, friend...)? What history was obtained from this source @ -EMS provided prehospital treatment and history from urgent care Did you review nursing and triage notes (agree or disagree)? Why? @ -I reviewed and agree with nursing and triage notes Were old charts reviewed (outside hosp., previous admission, EMS record, old EKG, old radiological studies, urgent care reports/EKG's, usp records)? Report findings @ -No old charts were reviewed Differential Diagnosis (chest pain, altered mental status, abdominal pain women, abdominal pain men, vaginal bleeding, weakness, fever, dyspnea, syncope, headache, dizziness, GI bleed, back pain, seizure, CVA, palpatations, mental health, musculoskeletal)? @ -Differential Dyspnea: Coronary syndrome, arrhythmia, tamponade, asthma, COPD, pulmonary embolism, pneumonia, pneumothorax, pulmonary effusion, anaphylaxis, diabetic ketoacidosis, flailed chest, pulmonary contusion, diaphragmatic rupture, anemia, neuromuscular, this is not meant to be an all-inclusive list. EKG interpreted by me (3pts min.). @ -As above X-rays interpreted by me (1pt min.). @ -Chest x-ray shows no acute process. CT interpreted by me (1pt min.). @ -CT chest PE study shows no evidence of PE or other acute abnormality. U/S interpreted by me (1pt. min.). @ -None done What testing was considered but not performed or refused? (CT, X-rays, U/S, labs)? Why? @ -None What meds were considered but not given or refused? Why? @ -None Did you discuss the management of the patient with other professionals (professionals i.e. , PA, TRAILER ASSEMBLER, lab, RT, psych nurse, community mental health social worker, rn orthopaedic, teacher, community arts officer, welfare case worker)? Give summary @ -No Was smoking cessation discussed for >3mins.? @ -No Was critical care preformed (if so, how long)? @ -No Were there social determinants of health that impacted care today? How? (Homelessness, low income, unemployed, alcoholism, drug addiction, transportation, low edu. Level, literacy, decrease access to med. care, m[facility], rehab)? @ -No Was there de-escalation of care discussed even if they declined (Discuss DNR or withdrawal of care, Hospice)? DNR status @ -No What co-morbidities impacted this encounter? (DM, HTN, Smoking, COPD, CAD, Cancer, CVA, ARF, Chemo, Hep., AIDS, mental health diagnosis, sleep apnea, morbid obesity)? @ -Dewey Was patient admitted / discharged? Hospital course, mention meds given and route, prescriptions, significant lab abnormalities, going to OR and other pertinent info. @ -Discharge patient feels great improved after DuoNeb treatments, IV steroids. Patient states he feels nearly to baseline. Patient vitals are stable. Updated on results of labs, x-ray. Patient discharged in stable condition return parameters were discussed. Undiagnosed new problem with uncertain prognosis? @ -No Drug Therapy requiring intensive monitoring for toxicity (Heparin, Nitro, Insulin, Cardizem)? @ -No Were any procedures done? @ -No Diagnosis/symptom? @ -Tracheobronchitis with bronchospasm Acute, or Chronic, or Acute on Chronic? @ -Acute Uncomplicated (without systemic symptoms) or Complicated (systemic symptoms)? @ -. Complicated Side effects of treatment? @ -No Exacerbation, Progression, or Severe Exacerbation? @ -No Poses a threat to life or bodily function? How? (Chest pain, [place], [place], pneumonia, PE, COPD, DKA, ARF, appy, cholecystitis, CVA, Diverticulitis, Homicidal, S uicidal, threat to staff... and all critical care pts) @ -No - Lab Data Result diagrams: 09/04/22 09:58 09/04/22 09:58 Lab Results 09/04/22 09/04/22 09/04/22 Range/Units 09:58 09:58 09:58 WBC 5.2 (3.8-10.6) k/uL RBC 4.65 (4.30-5.90) m/uL Hgb 12.7 L (13.0-17.5) gm/dL Hct 39.1 (39.0-53.0) % MCV 84.0 (80.0-100.0) fL MCH 27.3 (25.0-35.0) pg MCHC 32.6 (31.0-37.0) g/dL RDW 14.7 (11.5-15.5) % Plt Count 278 (150-450) k/uL MPV 8.4 Neutrophils % 65 % Lymphocytes % 23 % Monocytes % 7 % Eosinophils % 2 % Basophils % 0 % Neutrophils # 3.4 (1.3-7.7) k/uL Lymphocytes # 1.2 (1.0-4.8) k/uL Monocytes # 0.4 (0-1.0) k/uL Eosinophils # 0.1 (0-0.7) k/uL Basophils # 0.0 (0-0.2) k/uL PT 10.1 (9.0-12.0) sec INR 1.0 (<1.2) APTT 23.9 (22.0-30.0) sec D-Dimer 0.77 H (<0.60) mg/L FEU Sodium 137 (137-145) mmol/L Potassium 3.7 (3.5-5.1) mmol/L Chloride 102 (98-107) mmol/L Carbon Dioxide 26 (22-30) mmol/L Anion Gap 9 mmol/L BUN 27 H (9-20) mg/dL Creatinine 1.69 H (0.66-1.25) mg/dL Est GFR (CKD-EPI)AfAm 52 (>60 ml/min/1.73 sqM) Est GFR (CKD-EPI)NonAf 45 (>60 ml/min/1.73 sqM) Glucose 123 H (74-99) mg/dL Plasma Lactic Acid Eric (0.7-2.0) mmol/L Calcium 9.4 (8.4-10.2) mg/dL Magnesium 2.2 (1.6-2.3) mg/dL Total Bilirubin 0.5 (0.2-1.3) mg/dL AST 18 (17-59) U/L ALT 18 (4-49) U/L Alkaline Phosphatase 77 (38-126) U/L Troponin I (0.000-0.034) ng/mL NT-Pro-B Natriuret Pep pg/mL Total Protein 7.4 (6.3-8.2) g/dL Albumin 4.3 (3.5-5.0) g/dL 09/04/22 09/04/22 09/04/22 Range/Units 09:58 09:58 09:58 WBC (3.8-10.6) k/uL RBC (4.30-5.90) m/uL Hgb (13.0-17.5) gm/dL Hct (39.0-53.0) % MCV (80.0-100.0) fL MCH (25.0-35.0) pg MCHC (31.0-37.0) g/dL RDW (11.5-15.5) % Plt Count (150-450) k/uL MPV Neutrophils % % Lymphocytes % % Monocytes % % Eosinophils % % Basophils % % Neutrophils # (1.3-7.7) k/uL Lymphocytes # (1.0-4.8) k/uL Monocytes # (0-1.0) k/uL Eosinophils # (0-0.7) k/uL Basophils # (0-0.2) k/uL PT (9.0-12.0) sec INR (<1.2) APTT (22.0-30.0) sec D-Dimer (<0.60) mg/L FEU Sodium (137-145) mmol/L Potassium (3.5-5.1) mmol/L Chloride (98-107) mmol/L Carbon Dioxide (22-30) mmol/L Anion Gap mmol/L BUN (9-20) mg/dL Creatinine (0.66-1.25) mg/dL Est GFR (CKD-EPI)AfAm (>60 ml/min/1.73 sqM) Est GFR (CKD-EPI)NonAf (>60 ml/min/1.73 sqM) Glucose (74-99) mg/dL Plasma Lactic Acid Eric 1.9 (0.7-2.0) mmol/L Calcium (8.4-10.2) mg/dL Magnesium (1.6-2.3) mg/dL Total Bilirubin (0.2-1.3) mg/dL AST (17-59) U/L ALT (4-49) U/L Alkaline Phosphatase (38-126) U/L Troponin I <0.012 (0.000-0.034) ng/mL NT-Pro-B Natriuret Pep 33 pg/mL Total Protein (6.3-8.2) g/dL Albumin (3.5-5.0) g/dL Disposition Clinical Impression: Tracheobronchitis, Bronchospasm Disposition: HOME SELF-CARE Condition: Stable Instructions (If sedation given, give patient instructions): Bronchospasm (ED) Additional Instructions: Please return to the Emergency Department if symptoms worsen or any other concerns. Prescriptions: predniSONE 50 mg PO DAILY #5 tab Albuterol Inhaler [Ventolin Hfa Inhaler] 1 - 2 puff INHALATION Q6H PRN #1 each PRN Reason: Shortness Of Breath Azithromycin [Zithromax Z Pack] 0 tab PO DIRECTED #6 tab Is patient prescribed a controlled substance at d/c from ED?: No Referrals: Amaury Sesay DO [Primary Care Provider] - 1-2 days Time of Disposition: 12:14
[2022-09-04 11:08] VITALS: RESP 18
--- NOTE | 2022-09-04 11:20 | CT ---
CT CHEST FOR PULMONARY EMBOLISM. EXAMINATION TYPE: CT chest angio for PE DATE OF EXAM: 09/04/2022 INDICATION: SOB CT DLP: 239.2 mGycm, Automated exposure control for dose reduction was used. CONTRAST: Patient injected with 100 ml mL of Isovue 370. COMPARISON: None TECHNIQUE: CT of the chest is performed on a spiral scan at 2 mm thick sections. Study is performed with intravenous contrast timed for evaluation for pulmonary embolism. This will limit additional po rtions of the evaluation. 3-D MIP images reconstructed by the technologist are reviewed on the compu ter in the coronal and sagittal planes. FINDINGS: No persistent filling defects are evident to suggest an acute pulmonary embolism. No mediastinal or hilar adenopathy enlarged by CT criteria is evident. The ascending aorta diameter at the level of the main pulmonary artery is 3.2 cm. The main pulmonary artery diameter at the bifur cation is 0.6 cm. Lung windows are clear. Limited CT section through the upper abdomen are unremarkable. IMPRESSIONS: 1. No acute pulmonary embolism. 2. No acute pulmonary process.
[2022-09-04] MEDS ORDERED: IPRATROPIUM-ALBUTEROL 3 ML NEB INHALATION STA (11:28)
[2022-09-04 13:26] VITALS: BP 122/88; PULSE 99
== END 2022-09-04 13:28 | disposition home or self-care (01) ==
LOC: EC 09:18
DX: J40 Bronchitis, not specified as acute or chronic (principal); J98.01 Acute bronchospasm; I10 Essential (primary) hypertension; Z79.899 Other long term (current) drug therapy
CPT/HCPCS: 36415; 94640; 93005; 85379; 83880; 80053; 83605; 83735; 84484; 85025; 85610; 85730; 71046; 71275; 99285; 96374; 96361; J2930; Q9967

== ENCOUNTER → 2022-10-03 | Outpatient (CLI) | payer OTHER ==
--- NOTE | 2022-10-03 13:18 | CT ---
EXAMINATION TYPE: CT soft tissue neck wo/w con CT DLP: 624 mGycm, Automated exposure control for dose reduction was used. DATE OF EXAM: 10/03/2022 1:00 PM COMPARISON: Soft tissue neck radiograph 10/03/2022. CLINICAL INDICATION:Male, 57 years old with history of R06.1; PHH, stridor TECHNIQUE: Standard CT of the neck before and after the intravenous administration of 100 cc of Isovu e 300. Axial sections with coronal and sagittal reformats were obtained. FINDINGS: Brain: Visualized portions are grossly unremarkable. Orbits: Unremarkable Sinuses: Grossly unremarkable. Suprahyoid Neck: The oropharynx, oral cavity, parapharyngeal and retropharyngeal spaces are clear and symmetric. The nasopharynx is unremarkable. Infrahyoid Neck: The larynx, hypopharynx, and supraglottic area are clear and symmetric. Parotid Glands: Unremarkable. Submandibular Glands: Unremarkable. Musculoskeletal: No acute osseous pathology. Incidental incomplete fusion of the posterior arch of C1 . Levoscoliotic curvature. Lymph nodes: No pathologically enlarged lymph nodes. Vascular structures: Visualized major arteries are patent without evidence of aneurysm. Thoracic Inlet/airway: Airway is patent. Biapical pleural-parenchymal scarring. Soft tissues/Thyroid: Thyroid and remainder of the soft tissues are unremarkable. Other: none. IMPRESSION No significant abnormality within the neck.
== END | disposition home or self-care (01) ==
LOC: RADCTMAIN 12:39
PROVIDERS: ATTEND Family Medicine
DX: R06.1 Stridor (principal)
CPT/HCPCS: 70492; Q9967

== ENCOUNTER 2022-10-04 14:28 | Inpatient (IN) | payer OTHER ==
--- NOTE | 2022-10-04 15:40 | ED ---
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 [facility] where he had been sent by his primary physician to have evaluation of stridor. The patient states he has been having about 7 weeks of increasing shortness of breath and noisy breathing. He was seen in the clinic today and sent here to have admission. There are also notes that the patient had CT of the neck that did not reveal a cause for the patient's stridor. The patient had some pulmonary function testing that did reveal decreased FEV1, decreased FVC, and other abn ormalities. MD Complaint: shortness of breath, cough Onset/Timin -: week(s) Severity: moderate Severity scale (1-10): 0 Consistency: constant Improves With: nothing Worsens With: nothing Known History Of: other Associated Symptoms: denies other symptoms Treatments Prior to Arrival: none - Related Data Home Oxygen Therapy: No Home Medications Medication Instructions Recorded Confirmed lisinopriL [Prinivil] 10 mg PO DAILY 07/08/15 10/04/22 Cholecalciferol [Vitamin D3 (125 125 mcg PO DAILY 09/04/22 10/04/22 Mcg = 5000 Iu)] Ferrous Sulfate [Feosol] 325 mg PO DAILY 09/04/22 10/04/22 Folic Acid 1 mg PO DAILY 09/04/22 10/04/22 Pregabalin [Lyrica] 150 mg PO TID 09/04/22 10/04/22 Albuterol Inhaler [Ventolin Hfa 1 - 2 puff INHALATION RT-Q6H PRN 10/04/2209/17 Inhaler] Allergies Allergy/AdvReac Type Severity Reaction Status Date / Time No Known Allergies Allergy Verified 10/04/22 16:30 Review of Systems ROS Statement: Those systems with pertinent positive or pertinent negative responses have been documented in the HPI. ROS Other: All systems not noted in ROS Statement are negative. Constitutional: Denies: fever, chills ENT: Denies: throat pain, congestion Respiratory: Reports: cough, dyspnea, stridor. Denies: hemoptysis Cardiovascular: Denies: chest pain, palpitations, edema Gastrointestinal: Denies: abdominal pain, nausea, vomiting Genitourinary: Denies: dysuria, hematuria Musculoskeletal: Denies: back pain Skin: Denies: rash Neurological: Denies: headache, weakness, numbness Past Medical History Past Medical History: GERD/Reflux, Hypertension Additional Past Medical History / Comment(s): acute pancreatitis, shingles 2021, [place] in September 2021 History of Any Multi-Drug Resistant Organisms: None Reported Additional Past Surgical History / Comment(s): chiari decompression surgery Past Anesthesia/Blood Transfusion Reactions: No Reported Reaction Past Psychological History: No Psychological Hx Reported Smoking Status: Never smoker Past Alcohol Use History: None Reported Past Drug Use History: None Reported - Past Family History Mother Family Medical History: Cancer Additional Family Medical History / Comment(s): thyroid cancer Father Family Medical History: AFIB General Exam General appearance: alert, in no apparent distress Head exam: Present: atraumatic, normocephalic Eye exam: Present: normal appearance. Absent: scleral icterus, conjunctival inj ection ENT exam: Present: normal oropharynx Neck exam: Present: normal inspection, full ROM. Absent: tenderness, meningismus Respiratory exam: Present: stridor. Absent: respiratory distress, wheezes, rales, rhonchi Cardiovascular Exam: Present: regular rate, normal rhythm, normal heart sounds. Absent: systolic murmur, diastolic murmur, rubs, gallop GI/Abdominal exam: Present: soft. Absent: distended, tenderness, guarding, rebound, rigid, mass Extremities exam: Present: normal inspection, normal capillary refill. Absent: pedal edema, calf tenderness Back exam: Present: normal inspection. Absent: CVA tenderness (R), CVA tenderness (L) Neurological exam: Present: alert Skin exam: Present: warm, dry, intact, normal color. Absent: rash Course Vital Signs 10/04/22 10/04/22 10/04/22 14:45 15:17 16:12 Temperature 98.4 F Pulse Rate 93 77 Respiratory 18 22 Rate Blood Pressure 125/80 140/93 119/90 O2 Sat by Pulse 97 95 Oximetry 10/04/22 10/04/22 10/04/22 18:53 20:00 23:00 Temperature Pulse Rate 69 72 68 Respiratory 22 20 16 Rate Blood Pressure 126/91 144/91 133/97 O2 Sat by Pulse 96 95 95 Oximetry 10/05/22 10/05/22 04:00 06:23 Temperature 97.9 F Pulse Rate 84 75 Respiratory 22 14 Rate Blood Pressure 143/97 127/87 O2 Sat by Pulse 95 95 Oximetry Medical Decision Making - Medical Decision Making This patient is 57-year-old man with weeks of stridor that is worsening. The ca se discussed with Dr. Young or covering pulmonology, and he requests admission and ENT consultation. I discussed case with Dr. Mckeon, who will see the patient. Was pt. sent in by a medical professional or institution (, PA, PREVENTATIVE MAINTENANCE TECHNICIAN, urgent care, hospital, or group home...) When possible be specific @ -[Yes the patient is sent in by pulmonology to have probable admission for further evaluation of stridor Did you speak to anyone other than the patient for history (EMS, parent, family, police, friend...)? What history was obtained from this source @ -[Patient's partner did contribute to history Did you review nursing and triage notes (agree or disagree)? Why? @ -[I reviewed and agree with nursing and triage notes] Were old charts reviewed (outside hosp., previous admission, EMS record, old EKG, old radiological studies, urgent care reports/EKG's, group home records)? Report findings @ -[No old charts were reviewed] Differential Diagnosis (chest pain, altered mental status, abdominal pain women, abdominal pain men, vaginal bleeding, weakness, fever, dyspnea, syncope, headache, dizziness, GI bleed, back pain, seizure, CVA, palpatations, mental health, musculoskeletal)? @ -[Differential Dyspnea: Coronary syndrome, arrhythmia, tamponade, asthma, COPD, pulmonary embolism, pneumonia, pneumothorax, pulmonary effusion, anaphylaxis, diabetic ketoacidosis, flailed chest, pulmonary contusion, diaphragmatic rupture, anemia, neuromuscular, this is not meant to be an all-inclusive list. EKG interpreted by me (3pts min.). @ -See chart, interpreted by myself X-rays interpreted by me (1pt min.). @ -[None done] CT interpreted by me (1pt min.). @ -[None done] U/S interpreted by me (1pt. min.). @ -[None done] What testing was considered but not performed or refused? (CT, X-rays, U/S, labs)? Why? @ -[None] What meds were considered but not given or refused? Why? @ -[None] Did you discuss the management of the patient with other professionals (professionals i.e. DrHarvey, PA, PREVENTATIVE MAINTENANCE TECHNICIAN, lab, RT, psych nurse, social services director, dress finisher, teacher, financial services officer, casey saw operator)? Give summary @ -[The case is discussed with the admitting physician, with Dr. Hannah armenta, the nut picker on-call, and also with Dr. Mckeon ENT on-call Was smoking cessation discussed for >3mins.? @ -[No] Was critical care preformed (if so, how long)? @ -[No] Were there social determinants of health that impacted care today? How? (Homelessness, low income, unemployed, alcoholism, drug addiction, transportation, low edu. Level, literacy, decrease access to med. care, retirement, rehab)? @ -[No] Was there de-escalation of care discussed even if they declined (Discuss DNR or withdrawal of care, Hospice)? DNR status @ -[No] What co-morbidities impacted this encounter? (DM, HTN, Smoking, COPD, CAD, Cancer, CVA, ARF, Chemo, Hep., AIDS, mental health diagnosis, sleep apnea, mo rbid obesity)? @ -[None] Was patient admitted / discharged? Hospital course, mention meds given and route, prescriptions, significant lab abnormalities, going to OR and other pertinent info. @ -[Patient is admitted to have further treatment and consultations problem with uncertain prognosis? @ -[No] Drug Therapy requiring intensive monitoring for toxicity (Heparin, Nitro, Insulin, Cardizem)? @ -[No] Were any procedures done? @ -[No] Diagnosis/symptom? @ -[Acute stridor Acute, or Chronic, or Acute on Chronic? @ -[default] Uncomplicated (without systemic symptoms) or Complicated (systemic symptoms)? @ -[Uncomplicated Side effects of treatment? @ -[No] Exacerbation, Progression, or Severe Exacerbation? @ -[No] Poses a threat to life or bodily function? How? (Chest pain, USA, NH, pneumonia, PE, COPD, DKA, ARF, appy, cholecystitis, CVA, Diverticulitis, Homicidal, Suicidal, threat to staff... and all critical care pts) @ -[yes, unaddressed stridor may progress to airway obstruction/respiratory failure/ - Lab Data Result diagrams: 10/04/22 16:19 10/04/22 16:19 Lab Results 10/04/22 10/04/22 Range/Units 16:19 16:19 WBC 7.0 (3.8-10.6) k/uL RBC 4.82 (4.30-5.90) m/uL Hgb 13.7 (13.0-17.5) gm/dL Hct 40.6 (39.0-53.0) % MCV 84.3 (80.0-100.0) fL MCH 28.4 (25.0-35.0) pg MCHC 33.7 (31.0-37.0) g/dL RDW 14.7 (11.5-15.5) % Plt Count (150-450) k/uL MPV 11.1 Neutrophils % 66 % Lymphocytes % 21 % Monocytes % 9 % Eosinophils % 2 % Basophils % 0 % Neutrophils # 4.6 (1.3-7.7) k/uL Lymphocytes # 1.5 (1.0-4.8) k/uL Monocytes # 0.6 (0-1.0) k/uL Eosinophils # 0.1 (0-0.7) k/uL Basophils # 0.0 (0-0.2) k/uL Manual Slide Review Performed RBC Morphology Normal Sodium 136 L (137-145) mmol/L Potassium 4.9 (3.5-5.1) mmol/L Chloride 101 (98-107) mmol/L Carbon Dioxide 25 (22-30) mmol/L Anion Gap 10 mmol/L BUN 30 H (9-20) mg/dL Creatinine 1.23 (0.66-1.25) mg/dL Est GFR (CKD-EPI)AfAm 76 (>60 ml/min/1.73 sqM) Est GFR (CKD-EPI)NonAf 66 (>60 ml/min/1.73 sqM) Glucose 86 (74-99) mg/dL Calcium 8.9 (8.4-10.2) mg/dL Total Bilirubin 0.6 (0.2-1.3) mg/dL AST 27 (17-59) U/L ALT 21 (4-49) U/L Alkaline Phosphatase 52 (38-126) U/L C-Reactive Protein 0.5 (<1.0) mg/dL Total Protein 7.3 (6.3-8.2) g/dL Albumin 4.3 (3.5-5.0) g/dL - EKG Data -: EKG Interpreted by Me EKG shows normal: sinus rhythm, axis (Normal), intervals (Normal) Rate: normal (Rate 75 bpm) Disposition Clinical Impression: Stridor Disposition: ADMITTED IP TO THIS HOSP Condition: Fair
[2022-10-04 16:37] LABS: Albumin 4.3 g/dL (3.5-5.0); C Reactive Protein 0.5 mg/dL (<1.0); Calcium 8.9 mg/dL (8.4-10.2); Total Bilirubin 0.6 mg/dL (0.2-1.3); Total Protein 7.3 g/dL (6.3-8.2)
[2022-10-04 16:40] LABS: Potassium 4.9 mmol/L (3.5-5.1)
[2022-10-04 16:51] LABS: Basophils % (A) 0 %; Eosinophils # (A) 0.1 k/uL (0-0.7); Eosinophils % (A) 2 %; HCT 40.6 % (39.0-53.0); HGB 13.7 gm/dL (13.0-17.5); Lymphocytes # (A) 1.5 k/uL (1.0-4.8); Lymphocytes % (A) 21 %; MCH 28.4 pg (25.0-35.0); MCHC 33.7 g/dL (31.0-37.0); MCV 84.3 fL (80.0-100.0); Mean Platelet Volume 11.1; Monocytes # (A) 0.6 k/uL (0-1.0); Monocytes % (A) 9 %; Neutrophils # (A) 4.6 k/uL (1.3-7.7); Neutrophils % (A) 66 %; RBC 4.82 m/uL (4.30-5.90); RDW 14.7 % (11.5-15.5)
[2022-10-04] MEDS ORDERED: NALOXONE 0.4 MG/ML 1 ML VIAL IV PRN (17:06)
[2022-10-04] MEDS ORDERED: MAG HYDROX/AL HYDROX/SIMETH 30 ML CUP PO PRN (17:06)
[2022-10-04] MEDS ORDERED: ALBUTEROL NEBULIZED 2.5 MG/3 ML INHALATION PRN (17:12)
[2022-10-04 17:20] LABS: RBC Morphology Normal
[2022-10-04] MEDS: SODIUM CHLORIDE 0.9% 1,000 ML IV SCH (18:54)
[2022-10-04] MEDS: FAMOTIDINE 20 MG TAB PO SCH (21:01)
[2022-10-04] MEDS: PREGABALIN 75 MG CAP PO SCH (21:01)
[2022-10-04] MEDS ORDERED: methylPREDNISolone SOD SUCCI 40 MG/ML 1 ML VIAL IV SCH (22:05)
--- NOTE | 2022-10-04 22:07 | P.HPIM ---
History of Present Illness H&P Date: 10/04/22 Chief Complaint: Stridor This is a pleasant 57-year-old patient, follows with Dr. Sesay. Chronic stable medical conditions include GERD, hypertension, Lyrica 4 GB syndrome. Patient presents with several weeks of developing stridor. Which has persisted. No trouble swallowing. No fever no chills. Some trouble with breathing. Able to tolerate a diet. Does feel of narrowing in the neck. Patient is seen at Dr. Wagner's office and sent to the ER. ENT has been consulted. Started on steroids. Review of systems: GEN.: Tired EYES: None HEENT: None NECK: None RESPIRATORY: Stridor CARDIOVASCULAR: None GASTROINTESTINAL: None GENITOURINARY: None MUSCULOSKELETAL: None LYMPHATICS: None HEMATOLOGICAL: Some muscle aches and pains] PSYCHIATRY: None NEUROLOGICAL: None Past medical history to include: GERD, hypertension, acute pancreatitis, shingles, budChiari decompression surgery Social history: No smoking. No alcohol. Lives alone. Retired from [employer] Physical examination: VITAL SIGNS: 98.4, 93, 18, 125/80, 97% room air GENERAL: BMI 23.1, declining slightly tired, audible stridor. EYES: Pupils equal. Conjunctiva normal. HEENT: External appearance of nose and ears normal, oral cavity grossly normal audible stridor. NECK: JVD not raised; masses not palpable. HEART: First and second heart sounds are normal; no edema. LUNGS: Respiratory rate increased; clear to auscultation. ABDOMEN: Soft, nontender, liver spleen not palpable, no masses palpable. PSYCH: Alert and oriented x3; mood and affect normal. MUSCULOSKELETAL:No Clubbing/cyanosis;muscles-grossly intact NEUROLOGICAL: Cranial nerves grossly intact; no facial asymmetry, power and sensation grossly intact. LYMPHATICS: No lymph nodes palpable in the axilla and neck INVESTIGATIONS, reviewed in the clinical context: White count 7 hemoglobin 13.7 platelets Sodium 136 potassium 4.9 BUN 30 creatinine 1.23 CRP result 0.5 Soft tissue neck computed tomography scan [October 03]: Unremarkable Chest x-ray film personally reviewed by me-some hyperinflation EKG tracing personally reviewed by me-normal sinus rhythm Chest CTA: Negative for PE Assessment and plan: -Acute stridor present for about 7 weeks. No neck pain or swelling. No trouble swallowing. Does feel something narrowing in the throat. No fever no chills. Consult ENT for to endoscopy. Empirically started on steroids. 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 Home medications. Consult ENT. Pulmonary. Will need a flexible laryngoscopy. Discussed with the patient Past Medical History Past Medical History: GERD/Reflux, Hypertension Additional Past Medical History / Comment(s): acute pancreatitis, shingles 2021, [place] in September 2021 History of Any Multi-Drug Resistant Organisms: None Reported Additional Past Surgical History / Comment(s): chiari decompression surgery Past Anesthesia/Blood Transfusion Reactions: No Reported Reaction Past Psychological History: No Psychological Hx Reported Smoking Status: Never smoker Past Alcohol Use History: None Reported Past Drug Use History: None Reported - Past Family History Mother Family Medical History: Cancer Additional Family Medical History / Comment(s): thyroid cancer Father Family Medical History: AFIB Medications and Allergies Home Medications Medication Instructions Recorded Confirmed Type lisinopriL [Prinivil] 10 mg PO DAILY 07/08/15 10/04/22 History Cholecalciferol [Vitamin D3 (125 125 mcg PO DAILY 09/04/22 10/04/22 History Mcg = 5000 Iu)] Ferrous Sulfate [Feosol] 325 mg PO DAILY 09/04/22 10/04/22 History Folic Acid 1 mg PO DAILY 09/04/22 10/04/22 History Pregabalin [Lyrica] 150 mg PO TID 09/04/22 10/04/22 History Albuterol Inhaler [Ventolin Hfa 1 - 2 puff INHALATION RT-Q6H PRN 10/04/22 10/04/22 History Inhaler] Allergies Allergy/AdvReac Type Severity Reaction Status Date / Time No Known Allergies Allergy Verified 10/04/22 16:30 Physical Exam Vitals: Vital Signs Temp Pulse Resp BP Pulse Ox 10/04/22 20:00 72 20 144/91 95 10/04/22 18:53 69 22 126/91 96 10/04/22 16:12 77 22 119/90 95 10/04/22 15:17 140/93 10/04/22 14:45 98.4 F 93 18 125/80 97 Intake and Output 0510/04/22 10/04/22 06:59 14:59 22:59 Other: Weight 64.864 kg Results CBC & Chem 7: 10/04/22 16:19 10/04/22 16:19 Labs: Abnormal Lab Results - Last 24 Hours (Table) 10/04/22 Range/Units 16:19 Sodium 136 L (137-145) mmol/L BUN 30 H (9-20) mg/dL
[2022-10-04] MEDS: methylPREDNISolone SOD SUCCI 40 MG/ML 1 ML VIAL IV SCH (22:11)
[2022-10-04] MEDS: ENOXAPARIN 40 MG/0.4 ML SYRINGE SQ SCH (22:14)
[2022-10-05] MEDS: SODIUM CHLORIDE 0.9% 1,000 ML IV SCH ×3 (00:08→19:31)
[2022-10-05] MEDS: methylPREDNISolone SOD SUCCI 40 MG/ML 1 ML VIAL IV SCH (05:53)
[2022-10-05] MEDS ORDERED: lisinopriL 10 MG TAB PO SCH (09:00)
[2022-10-05] MEDS ORDERED: DEXAMETHASONE SOD PHOSPHATE 10 MG/ML 1 ML VIAL IVP SCH (09:00)
[2022-10-05] MEDS ORDERED: FERROUS SULFATE 325 MG TAB PO SCH (09:00)
[2022-10-05] MEDS ORDERED: FOLIC ACID 1 MG TAB PO SCH (09:00)
[2022-10-05 10:58] LABS: Glucose,Whole Blood 127 mg/dL (70-110)
[2022-10-05] MEDS: PREGABALIN 75 MG CAP PO SCH ×3 (11:01→21:15)
[2022-10-05] MEDS: DEXAMETHASONE SOD PHOSPHATE 4 MG/ML 1 ML VIAL IVP SCH ×2 (11:01→19:29)
[2022-10-05] MEDS: FAMOTIDINE 20 MG TAB PO SCH (11:10)
[2022-10-05] MEDS ORDERED: PROPOFOL 10 MG/ML 20 ML VIAL IV ONE (12:20)
[2022-10-05] MEDS ORDERED: MIDAZOLAM 2 MG/2 ML VIAL ONE (12:20)
[2022-10-05] MEDS ORDERED: fentaNYL (PF) 50 MCG/ML 2 ML AMP ONE (12:20)
[2022-10-05] MEDS ORDERED: ROCURONIUM 10 MG/ML (5 ML VIAL) IV ONE (12:20)
[2022-10-05] MEDS ORDERED: SODIUM CHLORIDE 0.9% 1,000 ML IV ONE (12:25)
[2022-10-05] MEDS ORDERED: SODIUM CHLORIDE 0.9% 50 ML with ceFAZolin 1,000 MG IV ONE ×2 (12:42)
[2022-10-05] MEDS ORDERED: LIDOCAINE 2%-EPI 1:100,000 20 ML VIAL SQ ONE ×2 (12:42)
[2022-10-05] MEDS ORDERED: GELATIN SPONGE,ABSORB (LARGE) 1 EACH SPONGE MISCELLANE ONE (13:05)
--- NOTE | 2022-10-05 13:30 | P.CNPUL ---
History of Present Illness Consult date: 10/05/22 Requesting physician: Stevie Vela Reason for consult: other (Stridor and shortness of breath) Chief complaint: Shortness of breath History of present illness: This is a 57-year-old white male, known history of hypertension, GERD, Guillain- Aquino syndrome, from which he has completely recovered. Patient was seen by Dr. cortes yesterday with 7 weeks history of ongoing shortness of breath and symptoms of stridor. Recent workup including CT of the soft tissues of the neck CT of the chest with nondiagnostic. Patient had a PFT done in our office yesterday, and it showed flat flow volume loops including flat inspiratory limb and expiratory limb suggestive of fixed intrathoracic obstruction. Patient was sent to the ER from Dr. glasgow office, and he was admitted. I saw this patient this morning, and I recommended immediate ENT evaluation. As a matter of fact I discussed his condition with Dr. 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 In the meantime arrangements were made to transfer the patient to the ICU for close monitoring prior to going to the operating room patient denies any fever or chills, denies any hemoptysis, Denies any chest pain. Denies any symptoms of active GERD. Last year, patient was admitted to the hospital with a new onset bilateral lower extremities weakness lowering an upper respiratory tract infection, patient was seen by neurology on consultation, and he was diagnosed as having Guillain-Aquino syndrome, rule out myelopathy. Patient did have previous history of cervical decompression surgery for chiari malformation in 2013. On his last admission, patient had MRI of the cervical spine, thoracic and lumbar spine, and he also had extensive testing including lumbar puncture to evaluate for CSF protein patient did receive IVIG treatment. Patient did not require intubation and mechanical ventilation for that presentation Review of Systems Constitutional: Negative HEENT: As noted in HPI mostly stridor Pulmonary: Shortness of breath no cough no wheezing no fever no chills no hemoptysis no chest pain. Cardiac: Negative GI: Negative Genitourinary: Negative Muscular skeletal: Negative Endocrine: Negative Neurologic: Negative Psychiatric: Negative Hematologic: Negative Skin: Past Medical History Past Medical History: GERD/Reflux, Hypertension Additional Past Medical History / Comment(s): acute pancreatitis, shingles 2021, [place] in September 2021 History of Any Multi-Drug Resistant Organisms: None Reported Additional Past Surgical History / Comment(s): chiari decompression surgery Past Anesthesia/Blood Transfusion Reactions: No Reported Reaction Past Psychological History: No Psychological Hx Reported Smoking Status: Never smoker Past Alcohol Use History: None Reported Past Drug Use History: None Reported - Past Family History Mother Family Medical History: Cancer Additional Family Medical History / Comment(s): thyroid cancer Father Family Medical History: AFIB Medications and Allergies Home Medications Medication Instructions Recorded Confirmed Type lisinopriL [Prinivil] 10 mg PO DAILY 07/08/15 10/04/22 History Cholecalciferol [Vitamin D3 (125 125 mcg PO DAILY 09/04/22 10/04/22 History Mcg = 5000 Iu)] Ferrous Sulfate [Feosol] 325 mg PO DAILY 09/04/22 10/04/22 History Folic Acid 1 mg PO DAILY 09/04/22 10/04/22 History Pregabalin [Lyrica] 150 mg PO TID 09/04/22 10/04/22 History Albuterol Inhaler [Ventolin Hfa 1 - 2 puff INHALATION RT-Q6H PRN 10/04/22 10/04/22 History Inhaler] Allergies Allergy/AdvReac Type Severity Reaction Status Date / Time No Known Allergies Allergy Verified 10/04/22 16:30 Physical Exam Vitals: Vital Signs Temp Pulse Pulse Resp BP BP Pulse Ox 10/05/22 12:00 71 79 15 135/91 97 10/05/22 11:30 81 12 135/91 98 10/05/22 11:10 89 19 135/91 98 10/05/22 11:00 98.3 F 73 20 137/102 98 10/05/22 09:30 79 16 100 10/05/22 08:40 98.3 F 78 20 133/79 97 10/05/22 06:23 97.9 F 75 14 127/87 95 10/05/22 04:00 84 22 143/97 95 10/04/22 23:00 68 16 133/97 95 10/04/22 20:00 72 20 144/91 95 10/04/22 18:53 69 22 126/91 96 10/04/22 16:12 77 22 119/90 95 10/04/22 15:17 140/93 10/04/22 14:45 98.4 F 93 18 125/80 97 Intake and Output 10/04/22 10/05/22 10/05/22 22:59 06:59 14:59 Intake Total 90 Balance 90 Intake: IV 90 .9NS 40 Other: Weight 64.864 kg Physical Exam: Revealed a 57-year-old white male in no distress Head: Atraumatic normocephalic. HEENT:[Neck is supple.] [No neck masses.] [No thyromegaly.] [No JVD.] Positive stridor best heard over the anterior neck area at the level of the vocal cords. Chest: [Clear throughout, no crackles, no rhonchi, no wheezes.] Cardiac Exam: [Normal S1 and S2, no S3 gallop, no murmur.] Abdomen: [Soft, nontender, no megaly, no rebound, no guarding, normal bowel sounds.] Extremities: [No clubbing, no edema, no cyanosis.] Good pulses bilaterally. Psychiatric: Normal mood affect and normal mental status examination. Skin: No rashes. Neurological Exam: [No focal neurologic deficit.] Alert and oriented 3 Results - Laboratory Findings CBC and BMP: 10/04/22 16:19 10/04/22 16:19 Abnormal lab findings: Abnormal Labs 10/04/22 10/05/22 16:19 10:56 Sodium 136 L BUN 30 H POC Glucose (mg/dL) 127 H - Diagnostic Findings Additional studies: Reviewed recent soft tissue neck CT and recent chest x-ray as well as recent CT angiogram of the chest these are basically nondiagnostic Assessment and Plan Assessment: Impression Subacute stridor, secondary to subglottic mass, patient will likely need biopsy and tracheostomy Shortness of breath secondary to above History of Guillain-Aquino syndrome Benign essential hypertension GERD without esophagitis History of Chiari decompression surgery Recommendation: Immediate ENT consult was initiated upon my initial evaluation of the patient and discuss his condition with Dr. Mckeon Patient was transferred to ICU for close monitoring Patient will likely need to have tracheostomy and subglottic mass biopsy which will be done by ENT In the meantime continue Decadron, and continue home meds. We'll continue to follow. Time with Patient: Greater than 30
--- NOTE | 2022-10-05 13:59 | P.GSCN ---
History of Present Illness Consult date: 10/05/22 Reason for Consult: stridor Requesting physician: Latha Young History of present illness: This is a 57-year-old white male who has had 8 weeks of progressive stridor. He describes it as both and inspiratory and expiratory stridor. He was treated for asthma but was unsuccessful. He was seen in the emergency room and referred by pulmonary for evaluation and admission. CAT scan of the neck was negative. I did review the CAT scan demonstrating a subglottic stenosis etiology unknown. His stridor is severe and his having difficult time breathing. He has hypoxemic. Denies smoking drinking. Review of Systems - Constitutional Reports as per HPI Past Medical History Past Medical History: GERD/Reflux, Hypertension Additional Past Medical History / Comment(s): acute pancreatitis, shingles 2021, Gambaray in September 2021 History of Any Multi-Drug Resistant Organisms: None Reported Additional Past Surgical History / Comment(s): chiari decompression surgery Past Anesthesia/Blood Transfusion Reactions: No Reported Reaction Past Psychological History: No Psychological Hx Reported Smoking Status: Never smoker Past Alcohol Use History: None Reported Past Drug Use History: None Reported - Past Family History Mother Family Medical History: Cancer Additional Family Medical History / Comment(s): thyroid cancer Father Family Medical History: AFIB Medications and Allergies Home Medications Medication Instructions Recorded Confirmed Type lisinopriL [Prinivil] 10 mg PO DAILY 07/08/15 10/04/22 History Cholecalciferol [Vitamin D3 (125 125 mcg PO DAILY 09/04/22 10/04/22 History Mcg = 5000 Iu)] Ferrous Sulfate [Feosol] 325 mg PO DAILY 09/04/22 10/04/22 History Folic Acid 1 mg PO DAILY 09/04/22 10/04/22 History Pregabalin [Lyrica] 150 mg PO TID 09/04/22 10/04/22 History Albuterol Inhaler [Ventolin Hfa 1 - 2 puff INHALATION RT-Q6H PRN 10/04/22 History Inhaler] Allergies Allergy/AdvReac Type Severity Reaction Status Date / Time No Known Allergies Allergy Verified 10/04/22 16:30 Surgical - Exam Osteopathic Statement: *. No significant issues noted on an osteopathic structural exam other than those noted in the History and Physical/Consult. Vital Signs Temp Pulse Resp BP Pulse Ox 98.4 F 93 18 125/80 97 10/04/22 14:45 10/04/22 14:45 10/04/22 14:45 10/04/22 14:45 10/04/22 14:45 - General Patient struggling to breathe well developed, well nourished, moderate distress, no pain - Eyes PERRL, normal ocular movement - ENT Head is normocephalic the face is symmetric there's no abnormal movements is no tenderness to the sinuses are mastoids. Auricles are well formed canals are clear. Nose is patent with crusting AND throat no oral lesions are noted. Teeth, average dentition, neck without tumors or masses. normal pinna, normal nares, normal mucosa, no hearing loss, no congestion - Neck no masses, no bruits, no lymphadectomy, no venous distension - Respiratory Stridor is loud and audible clear to auscultation - Integumentary no rash, no growths - Neurologic normal coordination, normal sensation - Musculoskeletal normal gait, normal posture Results - Labs 10/04/22 16:19 10/04/22 16:19 Abnormal Lab Results - Last 24 Hours (Table) 10/04/22 10/05/22 Range/Units 16:19 10:56 Sodium 136 L (137-145) mmol/L BUN 30 H (9-20) mg/dL POC Glucose (mg/dL) 127 H (70-110) mg/dL Diabetes panel 10/04/22 Range/Units 16:19 Sodium 136 L (137-145) mmol/L Potassium 4.9 (3.5-5.1) mmol/L Chloride 101 (98-107) mmol/L Carbon Dioxide 25 (22-30) mmol/L BUN 30 H (9-20) mg/dL Creatinine 1.23 (0.66-1.25) mg/dL Glucose 86 (74-99) mg/dL Calcium 8.9 (8.4-10.2) mg/dL AST 27 (17-59) U/L ALT 21 (4-49) U/L Alkaline Phosphatase 52 (38-126) U/L Total Protein 7.3 (6.3-8.2) g/dL Albumin 4.3 (3.5-5.0) g/dL Calcium panel 10/04/22 Range/Units 16:19 Calcium 8.9 (8.4-10.2) mg/dL Albumin 4.3 (3.5-5.0) g/dL Pituitary panel 10/04/22 Range/Units 16:19 Sodium 136 L (137-145) mmol/L Potassium 4.9 (3.5-5.1) mmol/L Chloride 101 (98-107) mmol/L Carbon Dioxide 25 (22-30) mmol/L BUN 30 H (9-20) mg/dL Creatinine 1.23 (0.66-1.25) mg/dL Glucose 86 (74-99) mg/dL Calcium 8.9 (8.4-10.2) mg/dL Adrenal panel 10/04/22 Range/Units 16:19 Sodium 136 L (137-145) mmol/L Potassium 4.9 (3.5-5.1) mmol/L Chloride 101 (98-107) mmol/L Carbon Dioxide 25 (22-30) mmol/L BUN 30 H (9-20) mg/dL Creatinine 1.23 (0.66-1.25) mg/dL Glucose 86 (74-99) mg/dL Calcium 8.9 (8.4-10.2) mg/dL Total Bilirubin 0.6 (0.2-1.3) mg/dL AST 27 (17-59) U/L ALT 21 (4-49) U/L Alkaline Phosphatase 52 (38-126) U/L Total Protein 7.3 (6.3-8.2) g/dL Albumin 4.3 (3.5-5.0) g/dL Assessment and Plan (1) Subglottic stenosis Current Visit: Yes Status: Acute Code(s): J38.6 - STENOSIS OF LARYNX SNOMED Code(s): 13291878 Plan: Patient is in need of a tracheotomy and a direct microscopic laryngoscopy with a possible biopsy. All risks, benefits, and alternative therapies were discussed in detail. Consent was obtained and all questions were answered. This patient's airway is being threatened he's fatiguing trying to breathe through his very narrow airway. I discussed this with his 2 sisters and his [id number] and there also anxious to have his airway secured. The etiology for the subglottic stenosis is unknown unsure if there is an malignancy or from subglottic stenosis. Tracheotomy will be performed and laryngoscopy with possible biopsy will be performed after the tracheotomy. Patient will have oxygen and descent to the unit for observation. Time with Patient: Greater than 30
--- NOTE | 2022-10-05 14:05 | P.OP ---
Date of Procedure: 10/05/22 Preoperative Diagnosis: Severe stridor Subglottic obstruction Postoperative Diagnosis: Same Procedure(s) Performed: Tracheostomy, direct microscopic laryngoscopy, Ligation of thyroid isthmus Anesthesia: RAYMONDA, local Surgeon: Ajith Ruiz Estimated Blood Loss (ml): 10 Pathology: none sent Condition: stable Disposition: ICU Indications for Procedure: Patient has had 8 weeks of progressive stridor which has become quite severe. Tracheotomy was recommended to secure his airway and a laryngoscopy to obtain a better evaluation as to the etiology of the subglottic stenosis. Operative Findings: Patient has severe stenosis of the subglottic region with severe stridor. Tracheotomy was performed which relieved his airway obstruction. Description of Procedure: Patient was taken to the operative room and placed in supine position the neck was anesthetized with lidocaine with epinephrine and a vertical incision was made from the cricoid to the sternum. Dissection was carried down to the cricoid cartilage. We dissected down to the trachea and thyroid isthmus. The thyroid was at the isthmus. We utilized the LigaSure for thyroid mobilization. This gave us access to the proximal trachea anteriorly. An inferiorly based tracheal flap was developed and a #8 fenestrated tube was placed with a cough. She's was placed onto the window to be reflected in a downward fashion the trach tube was placed secured the incision was closed with a 4 rapid Vicryl. Excellent placement of the trach was obtained. Once the trach was placed a tooth guard was placed with care to avoid any trauma to the lips teeth gums and tongue trachea a Jako laryngoscope was placed in the patient's mouth. Reevaluated the base of tongue piriform sinus true and false cords epiglottis etc. etc. placed on suspension on a Lewy and magnified. This obstruction in the proximal trachea was beyond the vocal cords and could not be visualized with instrumentation. The patient will need a bronchoscopy. The trach is secured and functioning well patient will be sent to the intensive care unit for recovery purposes.
[2022-10-05] MEDS: ENOXAPARIN 40 MG/0.4 ML SYRINGE SQ SCH (15:00)
[2022-10-05 20:07] VITALS: TEMP 98.1
[2022-10-05] MEDS ORDERED: KETOROLAC 15 MG/ML 1 ML VIAL IVP PRN (20:32)
[2022-10-05] MEDS ORDERED: FAMOTIDINE 20 MG/2 ML VIAL IV SCH (21:00)
--- NOTE | 2022-10-05 21:00 | P.PN ---
Progress Note - Text Progress Note Date: 10/05/22 Chief Complaint: Stridor This is a pleasant 57-year-old patient, follows with Dr. Sesay. Chronic stable medical conditions include GERD, hypertension, Lyrica 4 GB syndrome. Patient presents with several weeks of developing stridor. Which has persisted. No trouble swallowing. No fever no chills. Some trouble with breathing. Able to tolerate a diet. Does feel of narrowing in the neck. Patient is seen at Dr. Wagner's office and sent to the ER. ENT has been consulted. Started on steroids. October 05: This morning patient continued to stridor. Dr. Mckeon from ENT to the bedside laryngoscopy. Subglottic stenosis was found with a possible mass. Friable. Patient was then taken and a tracheostomy was done. Patient is on the ventilator for some time. Discussed with Dr. Mckeon. Patient will need a biopsy of the lesion. But because highly friable high risk for this institution. Patient's preferences [facility]. Initially spoke to the medical team that and then to the surgical team. Patient accepted to the ICU. Also spoke to Dr. Young. And the nurse. Patient has been switched over to trach collar. Total time spent today about 90 minutes Active Medications Al Hydroxide/Mg Hydroxide (Mag Hydrox/Al Hydrox/Simeth 30 Ml Cup) 15 ml PO Q6HR PRN PRN Reason: Indigestion Albuterol Sulfate (Albuterol Nebulized 2.5 Mg/3 Ml) 2.5 mg INHALATION RT-Q6H PRN PRN Reason: Shortness Of Breath Dexamethasone Sodium Phosphate (Dexamethasone Sod Phosphate 4 Mg/Ml 1 Ml Vial) 4 mg IVP Q6HR [facility] Last Admin: 10/05/22 19:29 Dose: 4 mg Enoxaparin Sodium (Enoxaparin 40 Mg/0.4 Ml Syringe) 40 mg SQ DAILY [facility] Last Admin: 10/05/22 15:00 Dose: Not Given Famotidine (Famotidine 20 Mg/2 Ml Vial) 20 mg IV Q12HR [facility] Last Admin: 10/05/22 20:43 Dose: 20 mg Ferrous Sulfate (Ferrous Sulfate 325 Mg Tab) 325 mg PO DAILY [facility] Last Admin: 10/05/22 11:10 Dose: Not Given Folic Acid (Folic Acid 1 Mg Tab) 1 mg PO DAILY [facility] Last Admin: 10/05/22 11:11 Dose: Not Given Sodium Chloride (Saline 0.9%) 1,000 mls @ 130 mls/hr IV .Q7H42M [facility] Last Admin: 10/05/22 19:31 Dose: Not Given Ketorolac Tromethamine (Ketorolac 15 Mg/Ml 1 Ml Vial) 15 mg IVP Q6HR PRN PRN Reason: Pain/Discomfort Stop: 10/10/22 20:33 Last Admin: 10/05/22 20:42 Dose: 15 mg Naloxone HCl (Naloxone 0.4 Mg/Ml 1 Ml Vial) 0.2 mg IV Q2M PRN PRN Reason: Opioid Reversal Pregabalin (Pregabalin 75 Mg Cap) 150 mg PO TID [facility] Last Admin: 10/05/22 17:50 Dose: Not Given Past medical history to include: GERD, hypertension, acute pancreatitis, shingles, budChiari decompression surgery Social history: No smoking. No alcohol. Lives alone. Retired from [employer] Physical examination: VITAL SIGNS: 98.1, 81, 22 3, 130/92, 100% on trach collar 40% FiO2 GENERAL: BMI 23.1, reclining in bed EYES: Pupils equal. Conjunctiva normal. HEENT: External appearance of nose and ears normal, fresh tricuspid to NECK: JVD not raised; masses not palpable. HEART: First and second heart sounds are normal; no edema. LUNGS: Respiratory rate increased; clear to auscultation. ABDOMEN: Soft, nontender, liver spleen not palpable, no masses palpable. PSYCH: Alert and oriented x3; mood and affect anxious INVESTIGATIONS, reviewed in the clinical context: COVID-19: Not detected White count 7 hemoglobin 13.7 platelets Sodium 136 potassium 4.9 BUN 30 creatinine 1.23 CRP result 0.5 Soft tissue neck computed tomography scan [October 03]: Unremarkable Chest x-ray film personally reviewed by me-some hyperinflation EKG tracing personally reviewed by me-normal sinus rhythm Chest CTA: Negative for PE Assessment and plan: -Acute stridor present for about 7 weeks. Subglottic stenosis with soft tissue mass. Friable. Status post laryngoscopy by Dr. Mckeon. -New tracheostomy tube. With a trach collar. 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 High risk of bleeding from a friable mass. Discussed
[2022-10-05 22:53] VITALS: BP 143/96; PULSE 60; RESP 12
--- NOTE | 2022-10-18 10:20 | CDI ---
Documentation Clarification Form Date: 10/18/2022 10:00:54 AM From: Jo Ann Torres Admit Date: 10/04/2022 05:42:00 PM Patient Name: Ismael Howe Visit Number: [id number] Discharge Date: 10/05/2022 11:03:00 PM ATTENTION: The Clinical Documentation Specialists (CDI) and [facility] Coding Staff appreciate your assistance in clarifying documentation. Please respond to the clarification below the line at the bottom and electronically sign. The CDI & [facility] Coding staff will review the response and follow-up if needed. Please note: Queries are made part of the Legal Health Record. If you have any questions, please contact the author of this message via ITS. Dr. Ajith Veronicaider Your patient has hypoxemia documented in Consult Note 10/05/22. Based on this information and the findings below, is there an additional diagnosis that is clinically appropriate for this patient? History/Risk Factors: patient is a 57 year old male who has 8 weeks of progressive stridor. He was found to have subglottic stenosis. Consult note 10/05 " the etiology for the subglottic stenosis is unknown unsure if there is a malignancy or from subglottic stenosis" Tobacco use: Never Home oxygen: None Clinical Indicators: hypoxemia, 10/05 placed on 4L NC, stridor, shortness of breath and noisy breathing. Vital signs: T 98.4 P 93 R 22 BP 140/93 Pulse oximetry: 95 room air Lung/Breathing assessment: Stridor, resp rate increased, short of breath, cough, dyspnea Treatment: empirically started on steroids, IV solu-medrol Tracheostomy, direct microscopic laryngoscopy Mechanical ventilation Is there an additional diagnosis that is clinically appropriate for this patient? [ ] Acute Hypoxic Respiratory Failure (pO2 <60 mm Hg or SpO2 <91% on room air) [ ] Acute on Chronic Hypoxic Respiratory Failure [ x ] Acute Respiratory Distress [ ] Hypoxemia [ ] Other Diagnosis, please specify [ ] Unable to determine Acute Respiratory distress is appropriate for this patient. MTDD
== END 2022-10-05 23:03 | disposition short-term general hospital (02) | DRG 12 ==
LOC: EC 14:28 → 6NMEDSUR 17:06 → OBSVTOIN 17:42 → 6NMEDSUR 18:40 → 2SICU 10-05 10:58
PROVIDERS: ADMIT Hospitalist; ATTEND Hospitalist
PROC: 0B110F4 Bypass Trachea to Cutaneous with Tracheostomy Device, Open Approach (ICD-10-PCS; principal; 2022-10-05 14:00)
PROC: 5A1935Z Respiratory Ventilation, Less than 24 Consecutive Hours (ICD-10-PCS; principal; 2022-10-05 14:00)
PROC: 0BJ18ZZ Inspection of Trachea, Via Natural or Artificial Opening Endoscopic (ICD-10-PCS; principal; 2022-10-05 14:00)
PROC: 0CJS8ZZ Inspection of Larynx, Via Natural or Artificial Opening Endoscopic (ICD-10-PCS; principal; 2022-10-05 14:00)
DX: J38.6 Stenosis of larynx (principal); G61.0 Guillain-Barre syndrome; R06.03 Acute respiratory distress; K21.9 Gastro-esophageal reflux disease without esophagitis; I10 Essential (primary) hypertension; Z20.822 Contact with and (suspected) exposure to COVID-19; R22.1 Localized swelling, mass and lump, neck; G62.9 Polyneuropathy, unspecified; B02.9 Zoster without complications; Z79.899 Other long term (current) drug therapy
CPT/HCPCS: 36415; 80053; 85025; 86140; 87635; 93005; 94002; 96361; 96374; 99285

== ENCOUNTER 2024-12-14 14:36 | Emergency (ER) | payer OTHER ==
[2024-12-14 14:39] VITALS: RESP 20
[2024-12-14] MEDS: LIDOCAINE 1% INJ 10MG/ML (20 ML MDV) SQ ONE (14:58)
[2024-12-14] MEDS: CEPHALEXIN 500 MG CAP PO STA (14:58)
--- NOTE | 2024-12-14 16:32 | ED ---
Wound/Laceration HPI - General Chief Complaint: Wound/Laceration Stated Complaint: L hand lac Time Seen by Provider: 12/14/24 14:51 Source: patient, RN notes reviewed Mode of arrival: ambulatory Limitations: no limitations - History of Present Illness Initial Comments: This is a 59-year-old male with history of GERD and hypertension presenting for left thumb laceration occurring earlier today. Patient states he was working with sheet-metal when he accidentally cut his thumb. Patient states his tetanus vaccination is not up-to-date, stating he needs approval from rheumatology before receiving any vaccinations at this time. Patient denies any other significant injury. Onset/Timin -: days(s) Context: accidental Associated Symptoms: none - Related Data Home Medications Medication Instructions Recorded Confirmed lisinopriL [Prinivil] 10 mg PO DAILY 07/08/15 10/04/22 Cholecalciferol [Vitamin D3 (125 125 mcg PO DAILY 09/04/22 10/04/22 Mcg = 5000 Iu)] Ferrous Sulfate [Feosol] 325 mg PO DAILY 09/04/22 10/04/22 Folic Acid 1 mg PO DAILY 09/04/22 10/04/22 Pregabalin [Lyrica] 150 mg PO TID 09/04/22 10/04/22 Albuterol Inhaler [Ventolin Hfa 1 - 2 puff INHALATION RT-Q6H PRN 10/04/22 Inhaler] Previous Rx's Medication Instructions Recorded Bacitracin/Polymyx Oint 1 applic TOPICAL BID #15 gm 12/14/24 [Polysporin Oint] Cephalexin [Keflex] 500 mg PO Q6HR #12 cap 12/14/24 Allergies Allergy/AdvReac Type Severity Reaction Status Date / Time No Known Allergies Allergy Verified 12/14/24 14:40 Review of Systems ROS Statement: Those systems with pertinent positive or pertinent negative responses have been documented in the HPI. ROS Other: All systems not noted in ROS Statement are negative. Past Medical History Past Medical History: GERD/Reflux, Hypertension Additional Past Medical History / Comment(s): acute pancreatitis, shingles 2021, [place] in September 2021, vasculitis History of Any Multi-Drug Resistant Organisms: None Reported Additional Past Surgical History / Comment(s): chiari decompression surgery, trach placement Past Anesthesia/Blood Transfusion Reactions: No Reported Reaction Past Psychological History: No Psychological Hx Reported Smoking Status: Never smoker Past Alcohol Use History: None Reported Past Drug Use History: None Reported - Past Family History Mother Family Medical History: Cancer Additional Family Medical History / Comment(s): thyroid cancer Father Family Medical History: AFIB General Exam Limitations: no limitations General appearance: alert, in no apparent distress Head exam: Present: atraumatic, normocephalic, normal inspection Eye exam: Present: normal appearance, PERRL, EOMI. Absent: scleral icterus, conjunctival injection, periorbital swelling ENT exam: Present: normal exam, mucous membranes moist Neck exam: Present: normal inspection. Absent: tenderness, meningismus, lymphadenopathy Respiratory exam: Present: normal lung sounds bilaterally. Absent: respiratory distress, wheezes, rales, rhonchi, stridor Cardiovascular Exam: Present: regular rate, normal rhythm, normal heart sounds. Absent: systolic murmur, diastolic murmur, rubs, gallop, clicks GI/Abdominal exam: Present: soft, normal bowel sounds. Absent: distended, tenderness, guarding, rebound, rigid Extremities exam: Present: full ROM, normal capillary refill, other (0.5 cm laceration noted at tip of left thumb without obvious foreign body, significant bleeding, surrounding erythema.). Absent: tenderness, pedal edema, joint swelling, calf tenderness Back exam: Present: normal inspection Neurological exam: Present: alert, oriented X3, CN II-XII intact Psychiatric exam: Present: normal affect, normal mood Skin exam: Present: warm, dry, intact, normal color. Absent: rash Course Vital Signs 12/14/24 12/14/24 12/14/24 14:37 14:40 15:49 Temperature 98.3 F Pulse Rate 75 87 Respiratory 20 Rate Blood Pressure 168/101 152/89 O2 Sat by Pulse 97 97 Oximetry 12/14/24 16:40 Temperature 98.6 F Pulse Rate 82 Respiratory 20 Rate Blood Pressure 146/88 O2 Sat by Pulse 99 Oximetry Procedures - Laceration Laceration #1 Consent Obtained: verbal consent Indication: laceration Site: other (Left thumb) Size (cm): 1 Description: linear Depth: simple, single layer Anesthetic Used: lidocaine 1% Anesthesia Technique: local infiltration Amount (mls): 2 Pre-repair: wound explored, irrigated extensively Type of Sutures: nylon Size of Sutures: 5-0 Number of Sutures: 3 Technique: simple, interrupted Patient Tolerated Procedure: well, no complications Medical Decision Making - Medical Decision Making Was pt. sent in by a medical professional or institution (JOHN Sheldon, TRIMMER MACHINE OPERATOR, urgent care, hospital, or fdc...) When possible be specific @ -No Did you speak to anyone other than the patient for history (EMS, parent, family, police, friend...)? What history was obtained from this source @ -No Did you review nursing and triage notes (agree or disagree)? Why? @ -I reviewed and agree with nursing and triage notes Were old charts reviewed (outside hosp., previous admission, EMS record, old EKG, old radiological studies, urgent care reports/EKG's, fdc records)? Report findings @ -No old charts were reviewed Differential Diagnosis (chest pain, altered mental status, abdominal pain women, abdominal pain men, vaginal bleeding, weakness, fever, dyspnea, syncope, headache, dizziness, GI bleed, back pain, seizure, CVA, palpatations, mental health, musculoskeletal)? @ -Differential Musculoskeletal Muscular strain, contusion, ligament sprain, fracture, arthritis, septic arthritis, bursitis, cellulitis, muscle spasm, nerve compression, DVT, arterial occlusion, herpes zoster, electrolyte abnormality, tumor.... This is not meant to be in all inclusive list EKG interpreted by me (3pts min.). @ -Not done X-rays interpreted by me (1pt min.). @ -None done CT interpreted by me (1pt min.). @ -None done U/S interpreted by me (1pt. min.). @ -None done What testing was considered but not performed or refused? (CT, X-rays, U/S, labs)? Why? @ -None What meds were considered but not given or refused? Why? @ -Patient declined IM tetanus, stating he requires approval from rheumatology before receiving any vaccinations. Did you discuss the management of the patient with other professionals (professionals i.e. JOHN Sheldon, TRIMMER MACHINE OPERATOR, lab, RT, psych nurse, social insurance specialist, lead front end developer, teacher, electrical engineering drafting officer, caser up)? Give summary @ -No Was smoking cessation discussed for >3mins.? @ -No Was critical care preformed (if so, how long)? @ -No Were there social determinants of health that impacted care today? How? (Homelessness, low income, unemployed, alcoholism, drug addiction, transportation, low edu. Level, literacy, decrease access to med. care, senior care, rehab)? @ -No Was there de-escalation of care discussed even if they declined (Discuss DNR or withdrawal of care, Hospice)? DNR status @ -No What co-morbidities impacted this encounter? (DM, HTN, Smoking, COPD, CAD, Cancer, CVA, ARF, Chemo, Hep., AIDS, mental health diagnosis, sleep apnea, morbid obesity)? @ -None Was patient admitted / discharged? Hospital course, mention meds given and route, prescriptions, significant lab abnormalities, going to OR and other pertinent info. @ -No suspected osseous involvement based upon physical exam. Laceration sutured under sterile conditions and patient provided initial dose of p.o. Keflex with remaining Keflex regimen and bacitracin ointment sent to patient's pharmacy. Suture wound care instructions provided patient and advised follow-up for suture removal in 7-10 days. Discussed patient with Dr. Watson. Undiagnosed new problem with uncertain prognosis? @ -No Drug Therapy requiring intensive monitoring for toxicity (Heparin, Nitro, Insulin, Cardizem)? @ -No Were any procedures done? @ -Left thumb laceration is sutured under sterile conditions. See procedure note Diagnosis/symptom? @ -Left thumb laceration Acute, or Chronic, or Acute on Chronic? @ -Acute Uncomplicated (without systemic symptoms) or Complicated (systemic symptoms)? @ -Uncomplicated Side effects of treatment? @ -No Exacerbation, Progression, or Severe Exacerbation? @ -No Poses a threat to life or bodily function? How? (Chest pain, [place], [place], pneumonia, PE, COPD, DKA, ARF, appy, cholecystitis, CVA, Diverticulitis, Homicidal, Suicidal, threat to staff... and all critical care pts) @ -No Disposition Clinical Impression: Laceration Disposition: HOME SELF-CARE Condition: Good Instructions (If sedation given, give patient instructions): Care For Your Stitches (ED) Additional Instructions: Keep sutured area clean with antibacterial soap and water along with dressing change at least twice daily. Follow-up with medical facility in 7-10 days for suture removal. Prescriptions: Cephalexin [Keflex] 500 mg PO Q6HR #12 cap Bacitracin/Polymyx Oint [Polysporin Oint] 1 applic TOPICAL BID #15 gm Is patient prescribed a controlled substance at d/c from ED?: No Referrals: Amaury Sesay DO [Primary Care Provider] - 1-2 days Time of Disposition: 16:32
[2024-12-14 16:42] VITALS: BP 146/88; PULSE 82; TEMP 98.6
== END 2024-12-14 18:15 | disposition home or self-care (01) ==
LOC: EC 14:36
DX: S61.012A Laceration without foreign body of left thumb without damage to nail, initial encounter (principal); W26.9XXA Contact with unspecified sharp object(s), initial encounter
CPT/HCPCS: 99282; 12001; J2003